=== PATIENT | male | born 1965 | race Caucasian/White ===

== ENCOUNTER 2024-07-18 20:07 | Inpatient (IN) | payer OTHER, MEDICAID ==
[~2024-07-18] VITALS: Ht 188 cm; Wt 64.8 kg
[2024-07-18] MEDS: SODIUM CHLORIDE 0.9% 1,000 ML IV ONE (20:30)
--- NOTE | 2024-07-18 20:34 | ED.PDOC ---
GI ASSESSMENT HPI Comments 59y M who presents to the ED via EMS for chief complaint of nausea and vomiting. Per EMS,pt is resident at [facility] who called after pt has been having nasuea, vomiting and generalized weakness over the past 2 days. Staff also told EMS that they facility does not have the resources to take care of pt due to pt having colon cancer and would like pt to be taken to ED to help find placement at another facility. Pt in the ED, is able to keep basic conversation but is nodding otherwise when asked basic questions but states he is in pain from his cancer. Pt otherwise denies any other symptoms at this time. 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 Allergies: Coded Allergies: NO KNOWN ALLERGIES (Unverified , 07/18/24) Information Source: Emergency Med Personnel Mode of Arrival: EMS Brought in by: EMS Past Medical History Past Medical History (Other): colon cancer Surgical History: Unknown Family History Family History: Unknown Social History Smoker: Non-Smoker Alcohol: Denies ETOH Use Drugs: Denies Drug Use Lives In: Care Home Constitutional: reports: weakness; denies: chills, diaphoresis, fatigue, fever, malaise, sweats, others EENTM: denies: blurred vision, double vision, ear bleeding, ear discharge, ear drainage, ear pain, ear ringing, eye pain, eye redness, hearing loss, mouth pain, mouth swelling, nasal discharge, nose bleeding, nose congestion, nose p ain, photophobia, tearing, throat pain, throat swelling, voice changes, others Respiratory: denies: cough, hemoptysis, orthopnea, SOB at rest, shortness of breath, SOB with excertion, stridor, wheezing, others Cardiovascular: denies: chest pain, dizzy spells, diaphoresis, Dyspnea on exertion, edema, irregular heart beat, left arm pain, lightheadedness, palpitations, PND, syncope, others Gastrointestinal: reports: abdominal pain, nausea, vomiting; denies: abdomen distended, blood streaked bowels, constipated, diarrhea, dysphagia, difficulty swallowing, hematemesis, melena, poor appetite, poor fluid intake, rectal bleeding, rectal pain, others Genitourinary: denies: burning, dysuria, flank pain, frequency, hematuria, incontinence, penile discharge, penile sore, pain, testicle pain, testicle swelling, urgency, others Neurological: denies: dizziness, fainting, headache, left sided numbness, left sided weakness, numbness, paresthesia, pre-existing deficit, right sided n umbness, right sided weakness, seizure, speech problems, tingling, tremors, weakness, others Musculoskeletal: denies: back pain, gout, joint pain, joint swelling, muscle pain, muscle stiffness, neck pain, others Integumetry: denies: bruises, change in color, change in hair/nails, dryness, laceration, lesions, lumps, rash, wounds, others Allergic/Immunocompromised: denies: Difficulty Healing, Frequent Infections, Hives, Itching, others Hematologic/Lymphatic: denies: anemia, blood clots, easy bleeding, easy bruising, swollen glands, others Endocrine: denies: excessive hunger, excessive sweating, excessive thirst, excessive urination, flushing, intolerance to cold, intolerance to heat, unexplained weight gain, unexplained weight loss, others Psychiatric: denies: anxiety, bipolar disorder, depression, hopeless, panic disorder, schizophrenia, sleepless, suicidal, others All Other Systems: Reviewed and Negative Physical Exam General Appearance: Mild Distress, Other (chronically ill appearing) HEENT: Normal ENT Inspection, Pharynx Normal, TMs Normal Neck: Full Range of Motion, Non-Tender, Normal, Normal Inspection Respiratory: Chest Non-Tender, Lungs Clear, No Accessory Muscle Use, No Respiratory Distress, Normal Breath Sounds Cardiovascular: Tachycardia Breast Exam: Deferred Gastrointestinal: No Organomegaly, Non Tender, No Pulsatile Mass, Normal Bowel Sounds, Soft Genitalia: Deferred Pelvic: Deferred Rectal: Deferred Extremities: No calf tenderness, Normal capillary refill, Normal inspection, Normal range of motion, Non-tender, No pedal edema Neurologic: Other (intellectually disabled) Cerebellar Function: NOT DONE Reflexes: NOT DONE Skin: Dry, Normal Color, Warm Lymphatic: No Adenopathy Was a procedure done? Was a procedure done?: No GI differential Dx Differential Diagnosis: Cholecystitis, Constipation, Gastritis/PUD, Gastroenteritis, Dehydration Other Differential Diagnosis failure to thrive X-Ray, Labs, Meds, VS Vital Signs Date Time Temp Pulse Resp B/P (MAP) Pulse Ox O2 Delivery O2 Flow Rate FiO2 07/18/24 22:27 70 12 122/82 07/18/24 21:45 95 14 124/82 07/18/24 21:05 98.2 71 16 124/43 (70) 98 98.2 07/18/24 20:14 97.7 73 16 13 (51) 96 Lab Test 07/18/24 20:40 Range/Units White Blood Count 10.1 4.4-10.8 10^3/uL Red Blood Count 4.60 4.5-5.90 10^6/uL Hemoglobin 11.7 L 13.5-17.5 g/dL Hematocrit 37.1 L 41.0-53.0 % Mean Corpuscular Volume 80.7 80.0-100.0 fL Mean Corpuscular Hemoglobin 25.4 L 28.0-32.0 pg Mean Corpuscular Hemoglobin Concent 31.5 L 32.0-36.0 g/dL Red Cell Distribution Width 17.6 H 11.8-14.3 % Platelet Count 205 140-450 10^3/uL Mean Platelet Volume 6.7 L 6.9-10.8 fL Neutrophils (%) (Auto) 85.3 H 37.0-80.0 % Lymphocytes (%) (Auto) 4.3 L 10.0-50.0 % Monocytes (%) (Auto) 10.1 0.0-12.0 % Eosinophils (%) (Auto) 0.0 0.0-7.0 % Basophils (%) (Auto) 0.3 0.0-2.0 % Neutrophils # (Auto) 8.6 1.6-8.6 10 ^3/uL Lymphocytes # (Auto) 0.4 0.4-5.4 10 ^3/uL Monocytes # (Auto) 1.0 0-1.3 10 ^3/uL Eosinophils # (Auto) 0 0-0.8 10 ^3/uL Basophils # (Auto) 0 0-0.2 10 ^3/uL Nucleated Red Blood Cells 0.1 % Sodium Level 139 136-145 mmol/L Potassium Level 4.2 3.5-5.1 mmol/L Chloride Level 106 98-107 mmol/L Carbon Dioxide Level 25 20-31 mmol/L Anion Gap 8 5-15 Blood Urea Nitrogen 18 9-23 mg/dL Creatinine 0.87 0.700-1.30 mg/dL Glomerular Filtration Rate Calc 99 >90 mL/min BUN/Creatinine Ratio 20.7 H 10.0-20.0 Serum Glucose 102 74-106 mg/dL Calcium Level 9.6 8.7-10.4 mg/dL Total Bilirubin 0.7 0.2-1.0 mg/dL Aspartate Amino Transferase (AST) 52 H 13-40 U/L Alanine Aminotransferase (ALT) 33 7-40 U/L Alkaline Phosphatase 90 46-116 U/L Troponin I High Sensitivity 51 </=54 ng/L Total Protein 6.5 5.7-8.2 g/dL Albumin 4.3 3.2-4.8 g/dL Lipase 36 12-53 U/L Current Medications Medications (Trade) Dose Ordered Sig/Cynthia Route Start Time Stop Time Status Last Admin Sodium Chloride 1,000 ml @ 1,000 mls/hr Q1H ONCE IV 07/18/24 20:30 07/18/24 21:29 DC 07/18/24 20:30 Ondansetron HCl (Zofran) 4 mg ONCE ONCE IV 07/18/24 20:30 07/18/24 20:31 DC 07/18/24 21:45 Morphine Sulfate 4 mg ONCE ONCE IV 07/18/24 20:30 07/18/24 20:31 DC 07/18/24 21:45 [place] [id number] Ph: [phone] DIAGNOSTIC IMAGING Diagnostic Imaging Report : [id number] Signed PATIENT: ALLYSSA GEORGE ACCT: [id number] UNIT: [id number] : 1965 LOC: ER ROOM / BED: / AGE / SEX: 59 / M ADM STATUS: REG ER SERVICE 20 ORDERING PHYSICIAN: BILL ELLINGTON MD PROCEDURE(s): CXRP - CHEST PORTABLE REASON: weakness ORDER NUMBER(s): [id number], ACCESSION NUMBER(s): [id number] CHEST RADIOGRAPH Indication: weakness Technique: Single frontal view of the chest was obtained Comparison: None Findings/ IMPRESSION: Possible 1.1 cm nodule in the left upper lung zone. No active cardiopulmonary disease. ATED BY: RADHA HERNANDEZ DO DICTATED DATE/TIME: 07/18/242049 SIGNED BY: RADHA HERNANDEZ DO SIGNED DATE/TIME: 07/18/242049 CC: Time of 1ST Reevaluation: 21:00 Reevaluation 1ST: Unchanged Patient Education/Counseling: Diagnosis, Treatment Family Education/Counseling: No Family Present Departure 1 Departure Time of Disposition: 22:56 (Patient with nausea and vomiting the setting of chemotherapy for cancer treatments. patient's facility reports the unable to take care of him.) Impression: Primary Impression: Projectile vomiting with nausea Additional Impressions: Weakness Cancer Disposition: ADMITTED INPATIENT Admit to: Med Surg Condition: Serious Critical Care Note Critical Care Time?: No Stability Stability form required: No Heart Score Heart Score: Heart Score Response (Comments) Value History N/A 0 EKG N/A 0 Age N/A 0 Risk Factors N/A 0 Troponin N/A 0 Total 0 I personally scribed for BILL ELLINGTON MD ([email or web address]) on 07/18/24 at 20:34. Electronically submitted by Don Sommer ([facility] I personally scribed for BILL ELLINGTON MD ([email or web address]) on 07/18/24 at 21:04. Electronically submitted by Don Sommer ([facility]). BILL ELLINGTON MD Jul 18, 2024 20:34
[2024-07-18 20:49] LABS: Basophils # (auto) 0 10 ^3/uL (0-0.2); Basophils % (auto) 0.3 % (0.0-2.0); Eosinophils # (auto) 0 10 ^3/uL (0-0.8); Hematocrit 37.1 % (41.0-53.0); Hemoglobin 11.7 g/dL (13.5-17.5); Lymphocytes # (auto) 0.4 10 ^3/uL (0.4-5.4); Lymphocytes % (auto) 4.3 % (10.0-50.0); Mean Corpuscular Hemoglobin 25.4 pg (28.0-32.0); Mean Corpuscular Hgb Conc. 31.5 g/dL (32.0-36.0); Mean Corpuscular Volume 80.7 fL (80.0-100.0); Monocytes % (auto) 10.1 % (0.0-12.0); Neutrophils # (auto) 8.6 10 ^3/uL (1.6-8.6); Neutrophils % (auto) 85.3 % (37.0-80.0); Nucleated Red Blood Cells % 0.1 %; Platelet Count (auto) 205 10^3/uL (140-450); Red Cell Distribution Width 17.6 % (11.8-14.3); White Blood Cell 10.1 10^3/uL (4.4-10.8)
--- NOTE | 2024-07-18 20:53 | DVH ---
CHEST RADIOGRAPH Indication: weakness Technique: Single frontal view of the chest was obtained Comparison: None Findings/ IMPRESSION: Possible 1.1 cm nodule in the left upper lung zone. No active cardiopulmonary disease.
[2024-07-18 21:05] LABS: Alanine Aminotransferase 33 U/L (7-40); Albumin 4.3 g/dL (3.2-4.8); Alkaline Phosphatase 90 U/L (46-116); Anion Gap 8 (5-15); Aspartate Aminotransferase 52 U/L (13-40); BUN/Creatinine Ratio 20.7 (10.0-20.0); Blood Urea Nitrogen 18 mg/dL (9-23); Calcium 9.6 mg/dL (8.7-10.4); Carbon Dioxide 25 mmol/L (20-31); Chloride 106 mmol/L (98-107); Glucose 102 mg/dL (74-106); Lipase 36 U/L (12-53); Potassium 4.2 mmol/L (3.5-5.1); Sodium 139 mmol/L (136-145)
[2024-07-18 21:06] LABS: Bilirubin, Total 0.7 mg/dL (0.2-1.0); Total Protein 6.5 g/dL (5.7-8.2)
[2024-07-18 21:15] VITALS: RESP 16; O2SAT 96
[2024-07-18] MEDS: ONDANSETRON HCL 4 MG/2 ML VIAL IV ONE (21:45)
[2024-07-18] MEDS: MORPHINE SULFATE 4 MG/ML SYR/VIAL IV ONE (21:45)
[2024-07-19] MEDS ORDERED: ACETAMINOPHEN 325 MG TAB PO PRN (00:30)
[2024-07-19] MEDS ORDERED: DOCUSATE SOD 100 MG CAP PO PRN (00:30)
[2024-07-19] MEDS ORDERED: ONDANSETRON HCL 4 MG/2 ML VIAL IV PRN (00:30)
[2024-07-19] MEDS ORDERED: HYDROcodone-ACET 5/325MG TAB PO PRN (00:30)
[2024-07-19] MEDS: SODIUM CHLORIDE 0.9% 1,000 ML IV SCH (00:30)
--- NOTE | 2024-07-19 02:11 | DVHHP2 ---
History of Present Illness Reason for Visit: Projectile vomiting with nausea History of Present Illness The patient is a 59-year-old male with past medical history of colon cancer, depression, and hyperlipidemia who presented to [facility] ED with complaint of nausea and vomiting. Patient has been having nausea, vomiting and generalized weakness over the past 2 days, getting worse that prompted this visit. Patient is resident at [facility], staff told EMS that the facility does not have the resources to take care of patient due to current colon cancer and would like to be taken to ED to help find placement at another facility. Patient was seen and evaluated in the ED, laboratory data shows WBC 10.1, platelets 205, sodium 139, potassium 4.2, BUN 18, creatinine 0.87, glucose 102, troponin 51, lipase 36. Chest x-ray revealing possible 1.1 cm nodules in the left upper lung son, no active cardiopulmonary disease. Please see medication orders section in the computer. On my assessment, patient denied chest pain, no headache, no dizziness, no diaphoresis, shortness of breaths, no abdominal pain, nausea or vomiting at this moment, no fever, no chills. Patient was admitted for further evaluation and medical management. Past Medical History Colon cancer, Depression, HLD Past Surgical History Denies all surgeries Family History Reviewed, noncontributory to the management of this case. Past Social History The patient lives at home, denies smoking, alcohol or illicit drugs abuse. Review of Systems Constitutional: Yes: Weakness; No: Fever, Chills, Sweats, Malaise, Other Eyes: No: Pain, Vision change, Conjunctivae inflammation, Eyelid inflammation, Other, Redness ENT: No: Ear pain, Ear discharge, Nose pain, Nose discharge, Nose congestion, Mouth pain, Mouth swelling, Throat pain, Throat swelling, Other Respiratory: No: Cough, Dry, Shortness of breath, SOB with excertion, Wheezing, Hemoptysis, Pleuritic Pain, Sputum, Wheezing, Other Cardiovascular: No: Chest Pain, Palpitations, Orthopnea, Paroxysmal Noc. Dyspnea, Edema, Lt Headedness, Other Gastrointestinal: Nausea, Vomiting, Abdominal Pain; No: Diarrhea, Constipation, Melena, Hematochezia, Other Genitourinary: No Dysuria, No Frequency, No Incontinence, No Hematuria, No Retention, No Other Musculoskeletal: No: other, neck pain, shoulder pain, arm pain, back pain, hand pain, leg pain, foot pain Skin: No: Rash, Lesions, Jaundice, Bruising, Other Neurological: No: Weakness, Numbness, Incoordination, Change in speech, Confusion, Seizures, Other Allergies: Coded Allergies: NO KNOWN ALLERGIES (Unverified , 07/18/24) Medications Current Medications Medications Dose Ordered Sig/Cynthia Route Start Time Stop Time Status Last Admin Dose Admin Aspirin 81 mg DAILY PO 07/19/24 10:00 Atorvastatin Calcium 20 mg HS PO 07/19/24 22:00 Tamsulosin HCl 0.4 mg QPM PO 07/19/24 18:00 Sertraline HCl 50 mg DAILY PO 07/19/24 10:00 Sodium Chloride 1,000 ml @ 60 mls/hr [id number] IV 07/19/24 00:30 07/19/24 00:30 60 MLS/HR Acetaminophen/ Hydrocodone Bitart 1 tab Q4HP PRN PO 07/19/24 00:30 Ondansetron HCl 4 mg Q4HP PRN IV 07/19/24 00:30 Docusate Sodium 100 mg BIDPRN PRN PO 07/19/24 00:30 Acetaminophen 650 mg Q6HP PRN PO 07/19/24 00:30 Exam Vital Signs Vital Signs Date Time Temp Pulse Resp B/P (MAP) Pulse Ox O2 Delivery O2 Flow Rate FiO2 07/18/24 22:27 70 12 122/82 07/18/24 21:15 96 Room Air* 0 21 07/18/24 21:05 98.2 98.2 General Appearance: Alert, Oriented X3, Cooperative, No acute distress HEENT: Atraumatic, PERRLA, EOMI, Mucous membr. moist/pink Respiratory: Clear to auscultation, Normal air movement Cardiovascular: Regular rate, Normal S1, Normal S2, No murmurs Abdominal: Normal bowel sounds, Soft, No tenderness, No hepatospenomegaly, No masses Extremities: No clubbing, No cyanosis, No edema, Normal pulses, No tenderness/swelling Skin: No rashes, No breakdown, No significant lesion Neuro: Normal speech, Normal tone, Sensation intact, Cranial nerves 3-12 NL, Reflexes 2+, Other (Generalized weakness) Psych/Mental Status: Mental status NL, Mood NL Labs/Xrays Labs Test 07/18/24 20:40 Range/Units White Blood Count 10.1 4.4-10.8 10^3/uL Red Blood Count 4.60 4.5-5.90 10^6/uL Hemoglobin 11.7 L 13.5-17.5 g/dL Hematocrit 37.1 L 41.0-53.0 % Mean Corpuscular Volume 80.7 80.0-100.0 fL Mean Corpuscular Hemoglobin 25.4 L 28.0-32.0 pg Mean Corpuscular Hemoglobin Concent 31.5 L 32.0-36.0 g/dL Red Cell Distribution Width 17.6 H 11.8-14.3 % Platelet Count 205 140-450 10^3/uL Mean Platelet Volume 6.7 L 6.9-10.8 fL Neutrophils (%) (Auto) 85.3 H 37.0-80.0 % Lymphocytes (%) (Auto) 4.3 L 10.0-50.0 % Monocytes (%) (Auto) 10.1 0.0-12.0 % Eosinophils (%) (Auto) 0.0 0.0-7.0 % Basophils (%) (Auto) 0.3 0.0-2.0 % Neutrophils # (Auto) 8.6 1.6-8.6 10 ^3/uL Lymphocytes # (Auto) 0.4 0.4-5.4 10 ^3/uL Monocytes # (Auto) 1.0 0-1.3 10 ^3/uL Eosinophils # (Auto) 0 0-0.8 10 ^3/uL Basophils # (Auto) 0 0-0.2 10 ^3/uL Nucleated Red Blood Cells 0.1 % Sodium Level 139 136-145 mmol/L Potassium Level 4.2 3.5-5.1 mmol/L Chloride Level 106 98-107 mmol/L Carbon Dioxide Level 25 20-31 mmol/L Anion Gap 8 5-15 Blood Urea Nitrogen 18 9-23 mg/dL Creatinine 0.87 0.700-1.30 mg/dL Glomerular Filtration Rate Calc 99 >90 mL/min BUN/Creatinine Ratio 20.7 H 10.0-20.0 Serum Glucose 102 74-106 mg/dL Calcium Level 9.6 8.7-10.4 mg/dL Total Bilirubin 0.7 0.2-1.0 mg/dL Aspartate Amino Transferase (AST) 52 H 13-40 U/L Alanine Aminotransferase (ALT) 33 7-40 U/L Alkaline Phosphatase 90 46-116 U/L Troponin I High Sensitivity 51 </=54 ng/L Total Protein 6.5 5.7-8.2 g/dL Albumin 4.3 3.2-4.8 g/dL Lipase 36 12-53 U/L PATIENT: ALLYSSA GEORGE ACCT: [id number] UNIT: [id number] : 1965 LOC: ER ROOM / BED: / AGE / SEX: 59 / M ADM STATUS: REG ER SERVICE 20 ORDERING PHYSICIAN: BILL ELLINGTON MD PROCEDURE(s): CXRP - CHEST PORTABLE REASON: weakness ORDER NUMBER(s): [id number], ACCESSION NUMBER(s): [id number] CHEST RADIOGRAPH Indication: weakness Technique: Single frontal view of the chest was obtained Comparison: None Findings/ IMPRESSION: Possible 1.1 cm nodule in the left upper lung zone. No active cardiopulmonary disease. Assessment/Plan Assessment/Plan Projectile vomiting with nausea Colon cancer Generalized weakness Plan 1. Admit to med surge unit 2. Breathing treatment 3. Pain control management 4. Management of fluids and electrolytes 5. Consultation for hospitalist 6. Diagnostic tests chest x-ray 7. DVT prophylaxis-on SCDs 8. Repeat labs CBC, CMP in a.m. 9. Continue with current medical management 10. Treatment plan discussed with patient and RN. Patient verbalized understanding. Plan discussed with: Patient, Other (RN) My Orders Orders - LION KIM DNP Procedure Category Date Status Time Complete Blood Count LAB 07/19/24 Logged 04:00 Comprehensive LAB 07/19/24 Logged Metabolic Panel 04:00 Aspirin Tablet PHA 07/19/24 In Process 10:00 Atorvastatin (Lipitor) PHA 07/19/24 In Process 22:00 Tamsulosin PHA 07/19/24 In Process Hydrochloride (Flomax) 18:00 Sertraline Hcl PHA 07/19/24 In Process (Zoloft) 10:00 Allergies YULI 07/19/24 In Process 00:23 Code Status CODE 07/19/24 Transmitted 00:23 Sodium Chloride 0.9% PHA 07/19/24 In Process 00:30 Oxygen Per Hour RT 07/19/24 Transmitted 00:23 Hydrocodone-Acet PHA 07/19/24 In Process 5/325mg Tab (Ten Sleep 00:30 Ondansetron Hcl PHA 07/19/24 In Process (Zofran) 00:30 Docusate Sodium PHA 07/19/24 In Process Capsule (Colace 00:30 Fall Risk Precautions YULI 07/19/[address] 00:23 Complete Blood Count LAB 07/20/24 Verified 04:00 Comprehensive LAB 07/20/24 Verified Metabolic Panel 04:00 Cardiac DIET 07/19/24 Transmitted Diet-2gna,Lofat,Lochol Breakfast Condition: Serious YULI 07/19/24 In Process 00:23 Acetaminophen Tablet PHA 07/19/24 In Process (Tylenol Tablet) 00:30 Sequential YULI 07/19/24 In Process Compression Device Admit ADMIT 07/19/24 Verified 02:09 Nitroglycerin PHA 07/19/24 Verified Sublingual (Ntrostat 02:15 Morphine Sulfate PHA 07/19/24 Verified Injection 02:15 Notify Md Of Changes YULI 07/19/24 Verified From Base 02:09 Emergency Dysrhythmia YULI 07/19/24 Verified Protocol 02:09 Oxygen By Nasal RT 07/19/24 Verified Cannula 02:09 Problem List: (1) Projectile vomiting with nausea (2) Colon cancer (3) Generalized weakness Date of Service: Jul 19, 2024 Billing Provider: LION KIM DNP Common Visit Codes: [id number] INP/OBS CARE (HIGH) LION KIM DNP Jul 19, 2024 02:11
[2024-07-19] MEDS ORDERED: NITROGLYCERIN 0.4 MG SL TAB SL PRN (02:15)
[2024-07-19] MEDS ORDERED: MORPHINE SULFATE INJ 2 MG/ml SYRG IV PRN (02:15)
[2024-07-19 05:41] LABS: Basophils # (auto) 0 10 ^3/uL (0-0.2); Eosinophils # (auto) 0 10 ^3/uL (0-0.8); Eosinophils % (auto) 0.2 % (0.0-7.0); Hemoglobin 10.8 g/dL (13.5-17.5); Lymphocytes # (auto) 0.5 10 ^3/uL (0.4-5.4); Mean Corpuscular Hemoglobin 25.6 pg (28.0-32.0); Red Blood Cells 4.21 10^6/uL (4.5-5.90)
[2024-07-19 05:45] LABS: Basophils % (auto) 0.3 % (0.0-2.0); Hematocrit 34.1 % (41.0-53.0); Lymphocytes % (auto) 5.2 % (10.0-50.0); Mean Corpuscular Hgb Conc. 31.5 g/dL (32.0-36.0); Mean Corpuscular Volume 81.1 fL (80.0-100.0); Monocytes % (auto) 10.5 % (0.0-12.0); Neutrophils # (auto) 7.8 10 ^3/uL (1.6-8.6); Neutrophils % (auto) 83.8 % (37.0-80.0); Nucleated Red Blood Cells % 0.1 %; Platelet Count (auto) 188 10^3/uL (140-450); White Blood Cell 9.3 10^3/uL (4.4-10.8)
[2024-07-19 06:01] LABS: Alanine Aminotransferase 27 U/L (7-40); Albumin 3.7 g/dL (3.2-4.8); Alkaline Phosphatase 85 U/L (46-116); Anion Gap 9 (5-15); Aspartate Aminotransferase 46 U/L (13-40); BUN/Creatinine Ratio 16.9 (10.0-20.0); Bilirubin, Total 0.6 mg/dL (0.2-1.0); Blood Urea Nitrogen 15 mg/dL (9-23); Calcium 9.4 mg/dL (8.7-10.4); Carbon Dioxide 23 mmol/L (20-31); Chloride 107 mmol/L (98-107); Glucose 108 mg/dL (74-106); Potassium 3.8 mmol/L (3.5-5.1); Sodium 139 mmol/L (136-145)
[2024-07-19 07:40] VITALS: PULSE 78; RESP 25; O2SAT 95
[2024-07-19 08:13] LABS: Urine Bacteria FEW /hpf (None Seen); Urine Blood Negative /uL (Negative); Urine Clarity Turbid (Clear); Urine Color Yellow (Yellow); Urine Protein, UAD Negative (Negative); Urine Specific Gravity 1.021 (1.001-1.035); Urine Urobilinogen Normal (Negative); Urine WBC 53 /hpf (0 - 3); Urine pH 5.5 (5.0-9.0)
[2024-07-19] MEDS: ASPirin 81 mg TAB PO SCH (10:55)
[2024-07-19] MEDS: SERTRALINE HCL 50 MG TAB PO SCH (10:56)
--- NOTE | 2024-07-19 13:33 | DVHPN2 ---
Reviewed: Care Plan, H&P, Labs, Medications, Previous Orders, Radiology Changes from previous H/P or p: No Changes Eyes: No Pain, No Vision change, No Conjunctivae inflammation, No Eyelid inflammation, No Other, No Redness ENT: No Ear pain, No Ear discharge, No Nose pain, No Nose discharge, No Nose congestion, No Mouth pain, No Mouth swelling, No Throat pain, No Throat swelling, No Other Cardiovascular: No Chest Pain, No Palpitations, No Orthopnea, No Paroxysmal Noc. Dyspnea, No Edema, No Lt Headedness, No Other Respiratory: No Cough, No Dry, No Shortness of breath, No SOB with excertion, No Wheezing, No Hemoptysis, No Pleuritic Pain, No Sputum, No Other Gastrointestinal: Nausea, Vomiting, Abdominal Pain; No Diarrhea, No Constipation, No Melena, No Hematochezia, No Other Genitourinary: No Dysuria, No Frequency, No Incontinence, No Hematuria, No Retention, No Other Musculoskeletal: No other, No neck pain, No shoulder pain, No arm pain, No back pain, No hand pain, No leg pain, No foot pain Skin: No Rash, No Lesions, No Jaundice, No Bruising, No Other Objective Vitals Vital Signs Date Time Temp Pulse Resp B/P (MAP) Pulse Ox O2 Delivery O2 Flow Rate FiO2 07/19/24 12:48 75 07/19/24 11:00 13 106/60 (75) 98 07/19/24 07:40 Room Air* 0 21 07/19/24 07:40 99.4 99.4 Intake/Output Intake and Output 07/19/24 07:00 Intake Total 360 ml Balance 360 ml Intake IV Total 360 ml Medications Current Medications Medications Dose Ordered Sig/Cynthia Route Start Time Stop Time Status Last Admin Dose Admin Aspirin 81 mg DAILY PO 07/19/24 10:00 07/19/24 10:55 81 MG Atorvastatin Calcium 20 mg HS PO 07/19/24 22:00 Tamsulosin HCl 0.4 mg QPM PO 07/19/24 18:00 Sertraline HCl 50 mg DAILY PO 07/19/24 10:00 07/19/24 10:56 50 MG Sodium Chloride 1,000 ml @ 60 mls/hr [id number] IV 07/19/24 00:30 07/19/24 00:30 60 MLS/HR Acetaminophen/ Hydrocodone Bitart 1 tab Q4HP PRN PO 07/19/24 00:30 Ondansetron HCl 4 mg Q4HP PRN IV 07/19/24 00:30 Docusate Sodium 100 mg BIDPRN PRN PO 07/19/24 00:30 Acetaminophen 650 mg Q6HP PRN PO 07/19/24 00:30 Nitroglycerin 0.4 mg Q5MINP PRN SL 07/19/24 02:15 Morphine Sulfate 2 mg Q30M PRN IV 07/19/24 02:15 Laboratory Results Laboratory Tests 07/19/24 05:25 Chemistry Test 07/18/24 20:40 07/19/24 05:25 Albumin 4.3 g/dL (3.2-4.8) 3.7 g/dL (3.2-4.8) Calcium Level 9.6 mg/dL (8.7-10.4) 9.4 mg/dL (8.7-10.4) Total Protein 6.5 g/dL (5.7-8.2) 6.0 g/dL (5.7-8.2) Lipid panel Test 07/18/24 20:40 Lipase 36 U/L (12-53) LFT Test 07/18/24 20:40 07/19/24 05:25 Alanine Aminotransferase (ALT) 33 U/L (7-40) 27 U/L (7-40) Alkaline Phosphatase 90 U/L (46-116) 85 U/L (46-116) Aspartate Amino Transferase (AST) 52 U/L (13-40) H 46 U/L (13-40) H Total Bilirubin 0.7 mg/dL (0.2-1.0) 0.6 mg/dL (0.2-1.0) Urinalysis Test 07/19/24 07:40 Urine Color Yellow (Yellow) Urine Clarity Turbid (Clear) H Urine pH 5.5 (5.0-9.0) Urine Specific [place] 1.021 (1.001-1.035) Urine Protein Negative (Negative) Urine Ketones Negative (Negative) Urine Blood Negative /uL (Negative) Urine Nitrite 2+ (Negative) H Urine Bilirubin Negative (Negative) Urine Urobilinogen Normal mg/dL (Negative) Urine Leukocyte Esterase 2+ /uL (Negative) Urine RBC 1 /hpf (0 - 3) Urine WBC 53 /hpf (0 - 3) Urine Squamous Epithelial Cells None seen /hpf (<5) Urine Bacteria Few /hpf (None Seen) H Urine Glucose Normal mg/dL (Normal) Labs and/or images reviewed: Labs reviewed by me, Image(s) reviewed by me Assessment/Plan Assessment/Plan Intractable Nausea and vomiting: Zofran Dehydration: LR 125 per hour Acute abdominal pain: CT abdomen pelvis without contrast GI consult for Dr. Zayas History of colon cancer Depression Zoloft Hypercholesterolemia: Lipitor BPH: Flomax Cachexia Severe malnutrition Time spent 65 minutes Condition guarded Patient is full code Advanced care planning time 20 minutes Patient came from [facility] Plan discussed with: Patient My Orders Orders - ROSEMARY AGUERO MD Procedure Category Date Status Time Ct Ab Pel Wo Con-No CT 07/19/24 Logged Oral Or Iv 13:27 Blood Culture CRAIG 07/19/24 Logged 13:28 Urine Bacterial CRAIG 07/19/24 Logged Culture 13:28 * Gi Dvh Ticket Scheduler CONS 07/19/24 Transmitted 13:28 Ceftriaxone Ivpb PHA 07/20/24 Verified Rocephin 09:00 Ceftriaxone Ivpb PHA 07/19/24 Verified Rocephin 13:30 Metronidazole Ivpb PHA 07/19/24 Verified Flagyl 14:00 Date of Service: Jul 19, 2024 Billing Provider: ROSEMARY AGUERO MD Common Visit Codes: [id number] CARE 30-74 MIN ROSEMARY AGUERO MD Jul 19, 2024 13:33
[2024-07-19] MEDS: cefTRIAXone 1GM/50ML D5W 50 ML IV ONE ×2 (15:21→15:23)
[2024-07-19] MEDS: metroNIDAZOLE 500MG/100ML 100 ML IV SCH (16:15)
--- NOTE | 2024-07-19 17:11 | DVHINCON2 ---
Date of service: Jul 19, [address] Lamar Reason for Consultation Abdominal pain nausea vomiting History of Present Illness This 59-year-old admitted to the is admitted through the emergency room with complaints of abdominal pain nausea vomiting patient has got some mild lower abdominal pain and some nausea and had couple vomiting and hence came to the brought to the emergency room from a fdc Patient i patient has history of colon cancer diagnosed last month and is on chemotherapy now Patient is also developmentally disabled and hence much difficult to get detailed history History Obtained from his patient care specialist Patient apparently has colon cancer with liver Mets and had two sets of chemotherapy the last one being last he had nausea and vomiting the next day and she was able to even not keep the nausea medication done and hence brought to the emergency room and from there admitted Hematemesis melena hematochezia etc. Past Medical History Possible hypertension Colon cancer with liver Mets Past Surgical History Unremarkable Family History Mother had colon cancer Social History Denies smoking or drinking Allergies: Coded Allergies: NO KNOWN ALLERGIES (Unverified , 07/18/24) Current Medications Current Medications Medications (Trade) Dose Ordered Sig/Cynthia Route PRN Reason Start Time Stop Time Status Last Admin Aspirin 81 mg DAILY PO 07/19/24 10:00 07/19/24 10:55 Atorvastatin Calcium (Lipitor) 20 mg HS PO 07/19/24 22:00 Tamsulosin HCl (Flomax) 0.4 mg QPM PO 07/19/24 18:00 Sertraline HCl (Zoloft) 50 mg DAILY PO 07/19/24 10:00 07/19/24 10:56 Sodium Chloride 1,000 ml @ 60 mls/hr [id number] IV 07/19/24 00:30 07/19/24 00:30 Acetaminophen/ Hydrocodone Bitart ([place] 5/325MG Tab) 1 tab Q4HP PRN PO MODERATE PAIN (4-6 PAIN SCALE) 07/19/24 00:30 Ondansetron HCl (Zofran) 4 mg Q4HP PRN IV NAUSEA / VOMITING 07/19/24 00:30 Docusate Sodium (Colace Capsule) 100 mg BIDPRN PRN PO FOR CONSTIPATION 07/19/24 00:30 Acetaminophen (Tylenol Tablet) 650 mg Q6HP PRN PO PAIN SCALE 1-3 OR TEMP>100.4 07/19/24 00:30 Nitroglycerin (Ntrostat Sublingual) 0.4 mg Q5MINP PRN SL FOR CHEST PAIN 07/19/24 02:15 Morphine Sulfate 2 mg Q30M PRN IV FOR CHEST PAIN 07/19/24 02:15 Ceftriaxone Sodium 50 ml @ 100 mls/hr DAILY@09 IV 07/20/24 09:00 Metronidazole 100 ml @ 100 mls/hr Q8HR IV 07/19/24 14:00 07/19/24 16:15 Promethazine HCl (Phenergan Plain Syrup) 25 mg Q6HR PO 07/19/24 18:00 Pantoprazole Sodium (Protonix) 40 mg DAILY IV 07/20/24 10:00 Review of Systems Unable to get my detailed history unremarkable otherwise Vital Signs Vital Signs Date Time Temp Pulse Resp B/P (MAP) Pulse Ox O2 Delivery O2 Flow Rate FiO2 07/19/24 13:00 72 17 100/61 (74) 95 07/19/24 07:40 Room Air* 0 21 07/19/24 07:40 99.4 99.4 Physical Exam Poorly built built and nourished male in no acute distress chronically ill- looking Vitals stable HEENT examination no pallor no icterus Lungs clear Cardiovascular unremarkable Abdomen soft no distention no rigidity no guarding no mass very minimal tenderness in left lower quadrant Bowel sounds normal Extremities wasted but no edema Labs/Diagnostic Data Labs Test 07/19/24 07:40 07/19/24 05:25 07/18/24 20:40 Range/Units Urine Color Yellow Yellow Urine Clarity Turbid H Clear Urine pH 5.5 5.0-9.0 Urine Specific [place] 1.021 1.001-1.035 Urine Protein Negative Negative Urine Ketones Negative Negative Urine Blood Negative Negative /uL Urine Nitrite 2+ H Negative Urine Bilirubin Negative Negative Urine Urobilinogen Normal Negative mg/dL Urine Leukocyte Esterase 2+ Negative /uL Urine RBC 1 0 - 3 /hpf Urine WBC 53 0 - 3 /hpf Urine Squamous Epithelial Cells None seen <5 /hpf Urine Bacteria Few H None Seen /hpf Urine Glucose Normal Normal mg/dL White Blood Count 9.3 4.4-10.8 10^3/uL Red Blood Count 4.21 L 4.5-5.90 10^6/uL Hemoglobin 10.8 L 13.5-17.5 g/dL Hematocrit 34.1 L 41.0-53.0 % Mean Corpuscular Volume 81.1 80.0-100.0 fL Mean Corpuscular Hemoglobin 25.6 L 28.0-32.0 pg Mean Corpuscular Hemoglobin Concent 31.5 L 32.0-36.0 g/dL Red Cell Distribution Width 17.0 H 11.8-14.3 % Platelet Count 188 140-450 10^3/uL Mean Platelet Volume 7.0 6.9-10.8 fL Neutrophils (%) (Auto) 83.8 H 37.0-80.0 % Lymphocytes (%) (Auto) 5.2 L 10.0-50.0 % Monocytes (%) (Auto) 10.5 0.0-12.0 % Eosinophils (%) (Auto) 0.2 0.0-7.0 % Basophils (%) (Auto) 0.3 0.0-2.0 % Neutrophils # (Auto) 7.8 1.6-8.6 10 ^3/uL Lymphocytes # (Auto) 0.5 0.4-5.4 10 ^3/uL Monocytes # (Auto) 1.0 0-1.3 10 ^3/uL Eosinophils # (Auto) 0 0-0.8 10 ^3/uL Basophils # (Auto) 0 0-0.2 10 ^3/uL Nucleated Red Blood Cells 0.1 % Sodium Level 139 136-145 mmol/L Potassium Level 3.8 3.5-5.1 mmol/L Chloride Level 107 98-107 mmol/L Carbon Dioxide Level 23 20-31 mmol/L Anion Gap 9 5-15 Blood Urea Nitrogen 15 9-23 mg/dL Creatinine 0.89 0.700-1.30 mg/dL Glomerular Filtration Rate Calc 98 >90 mL/min BUN/Creatinine Ratio 16.9 10.0-20.0 Serum Glucose 108 H 74-106 mg/dL Calcium Level 9.4 8.7-10.4 mg/dL Total Bilirubin 0.6 0.2-1.0 mg/dL Aspartate Amino Transferase (AST) 46 H 13-40 U/L Alanine Aminotransferase (ALT) 27 7-40 U/L Alkaline Phosphatase 85 46-116 U/L Total Protein 6.0 5.7-8.2 g/dL Albumin 3.7 3.2-4.8 g/dL Troponin I High Sensitivity 51 </=54 ng/L Lipase 36 12-53 U/L Assessment 59-year-old male with history of colon cancer with liver Mets stage IV with hyperlipidemia on chemotherapy with Oncology group from [facility] in [facility] Had the 2nd chemo on and developed nausea vomiting and hence came to the hospital and admitted Physical examination is unremarkable no abdominal distention no tenderness no rigidity or guarding No masses felt No gross bowel obstruction Clinical impression And pain nausea vomiting status post chemotherapy for colon cancer with stage IV with liver Mets Nausea vomiting possibly secondary to chemo Labs are unremarkable hemoglobin 10. Plan/Recommendation We will recommend symptomatic treatment with Zofran Protonix clear liquids and slowly advance Symptomatic treatment for the time being symptoms We will get a CT scan of the abdomen and pelvis If symptoms worsen may need further evaluation including further x-rays or endoscopy etc. if necessary For the time being conservative treatment and follow-up with the oncologist Thank you Dr. Marquez Howard discussed with: Other EMILE OHCOA MD Jul 19, 2024 17:11
[2024-07-19] MEDS: GASTROGRAFIN 30 ML SOL ONE (18:30)
[2024-07-19] MEDS: TAMSULOSIN HYDROCHLORIDE 0.4 MG CAP PO SCH (18:31)
[2024-07-19] MEDS: PROMETHAZINE HCL 6.25 MG/5 ML ORAL SYRUP PO SCH (18:32)
[2024-07-19] MEDS: IOHEXOL 300 MG/ML 100ML BOTTLE IJ ONE (21:25)
--- NOTE | 2024-07-19 21:34 | DVH ---
Exam: CT CT ABD PELVIS W CON-ORAL IV History: colon cancer nausea vomiting Comparison Study: PET-CT dated April 17, 2024 Technique: Multidetector spiral CT of the abdomen was performed from lung bases to pubic symphysis. Imaging was performed without IV contrast. Axial, coronal and sagittal multiplanar reformats were ob tained from the axial data set by the technologist. Radiation Dose : 1. Abdomen/Pelvis: CTDIvol 6.9 mGy, DLP 389.26 mGy*cm. Findings: Evaluation of solid organs is limited due to lack of intravenous contrast use. Lung Bases: No acute or significant lung base finding. Normal heart size. No pleural or pericardial effusion. Liver: Multiple hypodense liver masses, largest measuring up to 6.3 cm in the right hepatic lobe. Gallbladder and Biliary Tree: Unremarkable Spleen: Unremarkable Pancreas: The pancreas is grossly normal in appearance. Adrenal Glands: Unremarkable Kidneys: Kidneys are grossly normal without calculi or hydronephrosis. Bladder: Grossly unremarkable for degree of distention. Bowel: The stomach is grossly normal in appearance. Concentric wall thickening throughout the colon w ith adjacent fat stranding, compatible with infectious or inflammatory colitis. Irregular nodular wal l thickening throughout the sigmoid colon may reflect underlying mass. The appendix is not visualize d; however, no secondary findings of acute appendicitis identified. Ascites: Absent Lymphadenopathy: Multiple abnormally enlarged retroperitoneal lymph nodes, for example a left periaor tic lymph node measuring up to 1.9 cm. Abdominal Wall and Mesentery: Unremarkable. Vasculature: The visualized abdominal aorta is normal in size and caliber. Evaluation of abdominal a nd pelvic vessels is limited due to lack of intravenous contrast. Pelvic Organs: Unremarkable Musculoskeletal: No aggressive focal bony lesions, acute fractures or dislocation. IMPRESSION: 1. Infectious / inflammatory colitis. 2. Irregular nodular wall thickening throughout the sigmoid colon may reflect underlying mass. 3. Retroperitoneal lymphadenopathy, likely metastatic. 4. Multiple hypodense masses throughout the liver , largest measuring up to 6.3 cm in the right hepat ic lobe. These masses are compatible with metastatic disease Radiation optimization: All CT scans at this facility use at least one of these dose optimization alex hniques: automated exposure control mA and/or kV adjustment per patient size (includes targeted exam s where dose is matched to clinical indication) or iterative reconstruction.
[2024-07-19] MEDS: ATORVASTATIN 20 MG TAB PO SCH (22:10)
[2024-07-19 23:50] VITALS: PULSE 73; RESP 17; O2SAT 96
[2024-07-20] VITALS (9 sets, daily range): BP systolic 100–120; BP diastolic 61–72; PULSE 68–73; RESP 16–19; TEMP 96.2–98; O2SAT 90–100
[2024-07-20] MEDS ORDERED: ASPI-628 PO (00:41)
[2024-07-20] MEDS ORDERED: ONDA-188 PO (00:41)
[2024-07-20] MEDS ORDERED: ATOR40TA52 PO (00:41)
[2024-07-20] MEDS ORDERED: FERR325T20 PO (00:41)
[2024-07-20] MEDS ORDERED: MELA10CA PO (00:41)
[2024-07-20] MEDS ORDERED: LORA-483 PO (00:41)
[2024-07-20] MEDS ORDERED: CHOL50007 PO (00:41)
[2024-07-20] MEDS ORDERED: MULT-443 PO (00:41)
[2024-07-20] MEDS ORDERED: SERT-289 PO (00:41)
[2024-07-20] MEDS ORDERED: TAMS0.4C39 PO (00:41)
[2024-07-20 06:22] LABS: Basophils # (auto) 0 10 ^3/uL (0-0.2); Lymphocytes # (auto) 0.7 10 ^3/uL (0.4-5.4); Monocytes # (auto) 0.9 10 ^3/uL (0-1.3); Nucleated Red Blood Cells % 0.1 %
[2024-07-20 06:24] LABS: Basophils % (auto) 0.4 % (0.0-2.0); Eosinophils # (auto) 0.2 10 ^3/uL (0-0.8); Hematocrit 35.2 % (41.0-53.0); Hemoglobin 11.1 g/dL (13.5-17.5); Lymphocytes % (auto) 8.2 % (10.0-50.0); Mean Corpuscular Hemoglobin 25.4 pg (28.0-32.0); Mean Corpuscular Hgb Conc. 31.6 g/dL (32.0-36.0); Mean Corpuscular Volume 80.5 fL (80.0-100.0); Monocytes % (auto) 11.2 % (0.0-12.0); Neutrophils # (auto) 6.1 10 ^3/uL (1.6-8.6); Neutrophils % (auto) 77.2 % (37.0-80.0); Platelet Count (auto) 170 10^3/uL (140-450); Red Blood Cells 4.37 10^6/uL (4.5-5.90); Red Cell Distribution Width 17.1 % (11.8-14.3); White Blood Cell 7.9 10^3/uL (4.4-10.8)
[2024-07-20 07:05] LABS: Alanine Aminotransferase 29 U/L (7-40); Albumin 3.8 g/dL (3.2-4.8); Alkaline Phosphatase 84 U/L (46-116); Anion Gap 7 (5-15); Aspartate Aminotransferase 45 U/L (13-40); BUN/Creatinine Ratio 15.4 (10.0-20.0); Blood Urea Nitrogen 12 mg/dL (9-23); Calcium 9.2 mg/dL (8.7-10.4); Carbon Dioxide 24 mmol/L (20-31); Chloride 109 mmol/L (98-107); Glucose 89 mg/dL (74-106); Potassium 3.6 mmol/L (3.5-5.1); Sodium 140 mmol/L (136-145)
[2024-07-20 07:06] LABS: Bilirubin, Total 0.5 mg/dL (0.2-1.0); Total Protein 5.9 g/dL (5.7-8.2)
--- NOTE | 2024-07-20 09:34 | DVHPN2 ---
Reviewed: Care Plan, H&P, Labs, Medications, Previous Orders, Radiology Changes from previous H/P or p: No Changes Eyes: No Pain, No Vision change, No Conjunctivae inflammation, No Eyelid inflammation, No Other, No Redness ENT: No Ear pain, No Ear discharge, No Nose pain, No Nose discharge, No Nose congestion, No Mouth pain, No Mouth swelling, No Throat pain, No Throat swelling, No Other Cardiovascular: No Chest Pain, No Palpitations, No Orthopnea, No Paroxysmal Noc. Dyspnea, No Edema, No Lt Headedness, No Other Respiratory: No Cough, No Dry, No Shortness of breath, No SOB with excertion, No Wheezing, No Hemoptysis, No Pleuritic Pain, No Sputum, No Other Gastrointestinal: Nausea, Vomiting, Abdominal Pain; No Diarrhea, No Constipation, No Melena, No Hematochezia, No Other Genitourinary: No Dysuria, No Frequency, No Incontinence, No Hematuria, No Retention, No Other Musculoskeletal: No other, No neck pain, No shoulder pain, No arm pain, No back pain, No hand pain, No leg pain, No foot pain Skin: No Rash, No Lesions, No Jaundice, No Bruising, No Other Objective Vitals Vital Signs Date Time Temp Pulse Resp B/P (MAP) Pulse Ox O2 Delivery O2 Flow Rate FiO2 07/20/24 08:31 97.8 68 16 111/65 (80) 99 97.8 07/19/24 23:50 Nasal Cannula* 2 28 Intake/Output Intake and Output 07/20/24 07:00 Intake Total 1190 ml Output Total 0 ml Balance 1190 ml Intake Oral 0 ml IV Total 1190 ml Output Urine Total 0 ml Medications Current Medications Medications Dose Ordered Sig/Cynthia Route Start Time Stop Time Status Last Admin Dose Admin Aspirin 81 mg DAILY PO 07/19/24 10:00 07/19/24 10:55 81 MG Atorvastatin Calcium 20 mg HS PO 07/19/24 22:00 07/19/24 22:10 20 MG Tamsulosin HCl 0.4 mg QPM PO 07/19/24 18:00 07/19/24 18:31 0.4 MG Sertraline HCl 50 mg DAILY PO 07/19/24 10:00 07/19/24 10:56 50 MG Sodium Chloride 1,000 ml @ 60 mls/hr [id number] IV 07/19/24 00:30 07/19/24 18:00 60 MLS/HR Acetaminophen/ Hydrocodone Bitart 1 tab Q4HP PRN PO 07/19/24 00:30 Ondansetron HCl 4 mg Q4HP PRN IV 07/19/24 00:30 Docusate Sodium 100 mg BIDPRN PRN PO 07/19/24 00:30 Acetaminophen 650 mg Q6HP PRN PO 07/19/24 00:30 Nitroglycerin 0.4 mg Q5MINP PRN SL 07/19/24 02:15 Morphine Sulfate 2 mg Q30M PRN IV 07/19/24 02:15 Ceftriaxone Sodium 50 ml @ 100 mls/hr DAILY@09 IV 07/20/24 09:00 Metronidazole 100 ml @ 100 mls/hr Q8HR IV 07/19/24 14:00 07/20/24 06:29 100 MLS/HR Promethazine HCl 25 mg Q6HR PO 07/19/24 18:00 07/20/24 06:29 25 MG Pantoprazole Sodium 40 mg DAILY IV 07/20/24 10:00 Laboratory Results Laboratory Tests 07/20/24 05:27 Chemistry Test 07/20/24 05:27 Albumin 3.8 g/dL (3.2-4.8) Calcium Level 9.2 mg/dL (8.7-10.4) Total Protein 5.9 g/dL (5.7-8.2) LFT Test 07/20/24 05:27 Alanine Aminotransferase (ALT) 29 U/L (7-40) Alkaline Phosphatase 84 U/L (46-116) Aspartate Amino Transferase (AST) 45 U/L (13-40) H Total Bilirubin 0.5 mg/dL (0.2-1.0) Urinalysis Test 07/19/24 07:40 Urine Color Yellow (Yellow) Urine Clarity Turbid (Clear) H Urine pH 5.5 (5.0-9.0) Urine Specific [place] 1.021 (1.001-1.035) Urine Protein Negative (Negative) Urine Ketones Negative (Negative) Urine Blood Negative /uL (Negative) Urine Nitrite 2+ (Negative) H Urine Bilirubin Negative (Negative) Urine Urobilinogen Normal mg/dL (Negative) Urine Leukocyte Esterase 2+ /uL (Negative) Urine RBC 1 /hpf (0 - 3) Urine WBC 53 /hpf (0 - 3) Urine Squamous Epithelial Cells None seen /hpf (<5) Urine Bacteria Few /hpf (None Seen) H Urine Glucose Normal mg/dL (Normal) Labs and/or images reviewed: Labs reviewed by me, Image(s) reviewed by me Assessment/Plan Assessment/Plan Intractable Nausea and vomiting: Zofran Dehydration: LR 125 per hour Acute abdominal pain: CT abdomen pelvis without contrast shows sigmoid mass with Mets to the liver and colitis GI consult for Dr. Zayas History of colon cancer Depression Zoloft Hypercholesterolemia: Lipitor BPH: Flomax Cachexia Severe malnutrition Time spent 65 minutes Condition guarded Patient is full code Advanced care planning time 20 minutes Patient came from [facility]: medical care administrator Satnam [phone] at bedside and she advised the patient was diagnosed with colon cancer about a year ago and on chemotherapy with Dr. S[facility] of [facility] since one month Discussed with her about possibility of senior living facility placement for IV antibiotics Plan discussed with: Patient My Orders Orders - ROSEMARY AGUERO MD Procedure Category Date Status Time Blood Culture CRAIG 07/19/24 In Process 13:28 Urine Bacterial CRAIG 07/19/24 In Process Culture 13:28 * Gi Dvh Head Stock Operator CONS 07/19/24 Transmitted 13:28 Ceftriaxone 1gm/50ml PHA 07/20/24 In Process D5w (Rocephin) 09:00 Metronidazole PHA 07/19/24 In Process 500mg/100ml (Flagyl 14:00 Promethazine Plain PHA 07/19/24 In Process Syrup (Phenergan Plai 18:00 Date of Service: Jul 20, 2024 Billing Provider: ROSEMARY AGUERO MD Common Visit Codes: [id number] INP/OBS CARE(HIGH) Secondary Visit Codes: [id number] CARE PLAN 30 MINUTES ROSEMARY AGUERO MD Jul 20, 2024 09:34
[2024-07-20] MEDS: PANTOPRAZOLE 40 MG/10 ML VIAL INJ IV SCH (10:21)
[2024-07-20] MEDS: cefTRIAXone 1GM/50ML D5W 50 ML IV SCH (10:21)
[2024-07-21] VITALS (7 sets, daily range): BP systolic 111–135; BP diastolic 65–75; PULSE 67–88; RESP 14–20; TEMP 97.4–98.6; O2SAT 94–99
--- NOTE | 2024-07-21 09:45 | DVHPN2 ---
Reviewed: Care Plan, H&P, Labs, Medications, Previous Orders, Radiology Changes from previous H/P or p: No Changes Eyes: No Pain, No Vision change, No Conjunctivae inflammation, No Eyelid inflammation, No Other, No Redness ENT: No Ear pain, No Ear discharge, No Nose pain, No Nose discharge, No Nose congestion, No Mouth pain, No Mouth swelling, No Throat pain, No Throat swelling, No Other Cardiovascular: No Chest Pain, No Palpitations, No Orthopnea, No Paroxysmal Noc. Dyspnea, No Edema, No Lt Headedness, No Other Respiratory: No Cough, No Dry, No Shortness of breath, No SOB with excertion, No Wheezing, No Hemoptysis, No Pleuritic Pain, No Sputum, No Other Gastrointestinal: Nausea, Vomiting, Abdominal Pain; No Diarrhea, No Constipation, No Melena, No Hematochezia, No Other Genitourinary: No Dysuria, No Frequency, No Incontinence, No Hematuria, No Retention, No Other Musculoskeletal: No other, No neck pain, No shoulder pain, No arm pain, No back pain, No hand pain, No leg pain, No foot pain Skin: No Rash, No Lesions, No Jaundice, No Bruising, No Other Objective Vitals Vital Signs Date Time Temp Pulse Resp B/P (MAP) Pulse Ox O2 Delivery O2 Flow Rate FiO2 07/21/24 05:00 97.8 71 20 117/67 (84) 98 97.8 07/20/24 20:00 Nasal Cannula* 2 28 Intake/Output Intake and Output 07/21/24 07:00 Intake Total 1750 ml Balance 1750 ml Intake Oral 600 ml IV Total 1150 ml # Voids 1 # Bowel Movements 1 Medications Current Medications Medications Dose Ordered Sig/Cynthia Route Start Time Stop Time Status Last Admin Dose Admin Aspirin 81 mg DAILY PO 07/19/24 10:00 07/20/24 10:21 81 MG Atorvastatin Calcium 20 mg HS PO 07/19/24 22:00 07/20/24 22:00 20 MG Tamsulosin HCl 0.4 mg QPM PO 07/19/24 18:00 07/20/24 18:45 0.4 MG Sertraline HCl 50 mg DAILY PO 07/19/24 10:00 07/20/24 11:08 50 MG Sodium Chloride 1,000 ml @ 60 mls/hr [id number] IV 07/19/24 00:30 07/20/24 21:28 60 MLS/HR Acetaminophen/ Hydrocodone Bitart 1 tab Q4HP PRN PO 07/19/24 00:30 Ondansetron HCl 4 mg Q4HP PRN IV 07/19/24 00:30 Docusate Sodium 100 mg BIDPRN PRN PO 07/19/24 00:30 Acetaminophen 650 mg Q6HP PRN PO 07/19/24 00:30 Nitroglycerin 0.4 mg Q5MINP PRN SL 07/19/24 02:15 Morphine Sulfate 2 mg Q30M PRN IV 07/19/24 02:15 Ceftriaxone Sodium 50 ml @ 100 mls/hr DAILY@09 IV 07/20/24 09:00 07/20/24 10:21 100 MLS/HR Metronidazole 100 ml @ 100 mls/hr Q8HR IV 07/19/24 14:00 07/21/24 05:58 100 MLS/HR Promethazine HCl 25 mg Q6HR PO 07/19/24 18:00 07/20/24 12:37 25 MG Pantoprazole Sodium 40 mg DAILY IV 07/20/24 10:00 07/20/24 10:21 40 MG Laboratory Results Laboratory Tests 07/20/24 05:27 Urinalysis Test 07/19/24 07:40 Urine Color Yellow (Yellow) Urine Clarity Turbid (Clear) H Urine pH 5.5 (5.0-9.0) Urine Specific [place] 1.021 (1.001-1.035) Urine Protein Negative (Negative) Urine Ketones Negative (Negative) Urine Blood Negative /uL (Negative) Urine Nitrite 2+ (Negative) H Urine Bilirubin Negative (Negative) Urine Urobilinogen Normal mg/dL (Negative) Urine Leukocyte Esterase 2+ /uL (Negative) Urine RBC 1 /hpf (0 - 3) Urine WBC 53 /hpf (0 - 3) Urine Squamous Epithelial Cells None seen /hpf (<5) Urine Bacteria Few /hpf (None Seen) H Urine Glucose Normal mg/dL (Normal) Microbiology Microbiology Date/Time Source Procedure Growth Status 07/19/24 15:15 Blood Blood Culture - Preliminary NO GROWTH AFTER 24 HOURS OF INCUBATION. Resulted 07/19/24 07:40 Voided Urine Urine Culture - Preliminary Resulted Labs and/or images reviewed: Labs reviewed by me, Image(s) reviewed by me Assessment/Plan Assessment/Plan Intractable Nausea and vomiting: Zofran Dehydration: LR 125 per hour Acute abdominal pain: CT abdomen pelvis without contrast shows sigmoid mass with Mets to the liver and colitis GI consult for Dr. Marquez johansen, advised conservative symptomatic management History of colon cancer with Mets to the liver Depression Zoloft Mild Mental retardation Hypercholesterolemia: Lipitor BPH: Flomax Cachexia Severe malnutrition Time spent 55 minutes Condition guarded Patient is full code Advanced care planning time 20 minutes Patient came from [facility] living Facility: cad administrator Satnam [phone] at bedside and she advised the patient was diagnosed with colon cancer about a year ago and on chemotherapy with Dr. Saeed [facility] of [facility] since one month. Patient does not want to pursue any chemotherapy and wants to be discharged to nursing home facility for symptomatic management Patient is capable of making decision Plan discussed with: Patient Date of Service: Jul 21, 2024 Billing Provider: ROSEMARY AGUERO MD Common Visit Codes: [id number] INP/OBS CARE(HIGH) ROSEMARY AGUERO MD Jul 21, 2024 09:45
[2024-07-22] VITALS (9 sets, daily range): BP systolic 110–123; BP diastolic 68–76; PULSE 64–80; RESP 16–20; TEMP 97.3–98; O2SAT 95–99
--- NOTE | 2024-07-22 10:01 | DVHPN2 ---
Reviewed: Care Plan, H&P, Labs, Medications, Previous Orders, Radiology Changes from previous H/P or p: No Changes Eyes: No Pain, No Vision change, No Conjunctivae inflammation, No Eyelid inflammation, No Other, No Redness ENT: No Ear pain, No Ear discharge, No Nose pain, No Nose discharge, No Nose congestion, No Mouth pain, No Mouth swelling, No Throat pain, No Throat swelling, No Other Cardiovascular: No Chest Pain, No Palpitations, No Orthopnea, No Paroxysmal Noc. Dyspnea, No Edema, No Lt Headedness, No Other Respiratory: No Cough, No Dry, No Shortness of breath, No SOB with excertion, No Wheezing, No Hemoptysis, No Pleuritic Pain, No Sputum, No Other Gastrointestinal: Nausea, Vomiting, Abdominal Pain; No Diarrhea, No Constipation, No Melena, No Hematochezia, No Other Genitourinary: No Dysuria, No Frequency, No Incontinence, No Hematuria, No Retention, No Other Musculoskeletal: No other, No neck pain, No shoulder pain, No arm pain, No back pain, No hand pain, No leg pain, No foot pain Skin: No Rash, No Lesions, No Jaundice, No Bruising, No Other Objective Vitals Vital Signs Date Time Temp Pulse Resp B/P (MAP) Pulse Ox O2 Delivery O2 Flow Rate FiO2 07/22/24 08:51 97.8 70 16 111/68 (82) 97 97.8 07/22/24 08:00 Nasal Cannula* 2 28 Intake/Output Intake and Output 07/22/24 07:00 Intake Total 1590 ml Balance 1590 ml Intake Oral 1340 ml IV Total 250 ml # Voids 3 # Bowel Movements 2 Medications Current Medications Medications Dose Ordered Sig/Cynthia Route Start Time Stop Time Status Last Admin Dose Admin Aspirin 81 mg DAILY PO 07/19/24 10:00 07/21/24 10:43 81 MG Atorvastatin Calcium 20 mg HS PO 07/19/24 22:00 07/21/24 21:20 20 MG Tamsulosin HCl 0.4 mg QPM PO 07/19/24 18:00 07/21/24 18:00 0.4 MG Sertraline HCl 50 mg DAILY PO 07/19/24 10:00 07/21/24 10:42 50 MG Sodium Chloride 1,000 ml @ 60 mls/hr [id number] IV 07/19/24 00:30 07/20/24 21:28 60 MLS/HR Acetaminophen/ Hydrocodone Bitart 1 tab Q4HP PRN PO 07/19/24 00:30 Ondansetron HCl 4 mg Q4HP PRN IV 07/19/24 00:30 Docusate Sodium 100 mg BIDPRN PRN PO 07/19/24 00:30 Acetaminophen 650 mg Q6HP PRN PO 07/19/24 00:30 Nitroglycerin 0.4 mg Q5MINP PRN SL 07/19/24 02:15 Morphine Sulfate 2 mg Q30M PRN IV 07/19/24 02:15 Ceftriaxone Sodium 50 ml @ 100 mls/hr DAILY@09 IV 07/20/24 09:00 07/21/24 10:42 100 MLS/HR Metronidazole 100 ml @ 100 mls/hr Q8HR IV 07/19/24 14:00 07/22/24 05:34 100 MLS/HR Promethazine HCl 25 mg Q6HR PO 07/19/24 18:00 07/21/24 18:00 25 MG Pantoprazole Sodium 40 mg DAILY IV 07/20/24 10:00 07/21/24 10:43 40 MG Laboratory Results Laboratory Tests 07/20/24 05:27 Urinalysis Test 07/19/24 07:40 Urine Color Yellow (Yellow) Urine Clarity Turbid (Clear) H Urine pH 5.5 (5.0-9.0) Urine Specific [place] 1.021 (1.001-1.035) Urine Protein Negative (Negative) Urine Ketones Negative (Negative) Urine Blood Negative /uL (Negative) Urine Nitrite 2+ (Negative) H Urine Bilirubin Negative (Negative) Urine Urobilinogen Normal mg/dL (Negative) Urine Leukocyte Esterase 2+ /uL (Negative) Urine RBC 1 /hpf (0 - 3) Urine WBC 53 /hpf (0 - 3) Urine Squamous Epithelial Cells None seen /hpf (<5) Urine Bacteria Few /hpf (None Seen) H Urine Glucose Normal mg/dL (Normal) Microbiology Microbiology Date/Time Source Procedure Growth Status 07/20/24 07:29 Nose MRSA Screen - Final Complete 07/19/24 15:15 Blood Blood Culture - Preliminary NO GROWTH AFTER 48 HOURS OF INCUBATION. Resulted 07/19/24 07:40 Voided Urine Urine Culture - Preliminary Resulted Labs and/or images reviewed: Labs reviewed by me, Image(s) reviewed by me Assessment/Plan Assessment/Plan Failure to thrive Recurrent falls at home Intractable Nausea and vomiting: Zofran Dehydration: LR 125 per hour Acute abdominal pain: CT abdomen pelvis without contrast shows sigmoid mass with Mets to the liver and colitis GI consult for Dr. Marquez johansen, advised conservative symptomatic management History of colon cancer with Mets to the liver Depression Zoloft Mild Mental retardation Hypercholesterolemia: Lipitor BPH: Flomax Cachexia Severe malnutrition Patient's father and power of acute dialysis registered nurse Daniel [phone] at bedside and requesting nursing home facility placement. Physical therapy recommended nursing home facility placement Plan discussed with: Patient My Orders Orders - ROSEMARY AGUERO MD Procedure Category Date Status Time * Windshield Technician CONS 07/21/24 Transmitted Consult Pt Request For Service PT 07/21/24 Logged 16:27 * Windshield Technician CONS 07/22/24 Transmitted Consult Date of Service: Jul 22, 2024 Billing Provider: ROSEMARY AGUERO MD Common Visit Codes: [id number] INP/OBS CARE(HIGH) ROSEMARY AGUERO MD Jul 22, 2024 10:01
--- NOTE | 2024-07-22 10:05 | DVHDS2 ---
Discharge Summary Date of Admission Jul 19, 2024 at 02:09 Date of Discharge: Jul 22, 2024 Admitting Diagnosis Abdominal pain nausea and vomiting and failure to thrive Wounds: None Labs/Diagnostic Data: Laboratory Results Test 07/20/24 05:27 07/19/24 07:40 07/18/24 20:40 White Blood Count 7.9 10^3/uL (4.4-10.8) Red Blood Count 4.37 10^6/uL (4.5-5.90) Hemoglobin 11.1 g/dL (13.5-17.5) Hematocrit 35.2 % (41.0-53.0) Mean Corpuscular Volume 80.5 fL (80.0-100.0) Mean Corpuscular Hemoglobin 25.4 pg (28.0-32.0) Mean Corpuscular Hemoglobin Concent 31.6 g/dL (32.0-36.0) Red Cell Distribution Width 17.1 % (11.8-14.3) Platelet Count 170 10^3/uL (140-450) Mean Platelet Volume 7.0 fL (6.9-10.8) Neutrophils (%) (Auto) 77.2 % (37.0-80.0) Lymphocytes (%) (Auto) 8.2 % (10.0-50.0) Monocytes (%) (Auto) 11.2 % (0.0-12.0) Eosinophils (%) (Auto) 3.0 % (0.0-7.0) Basophils (%) (Auto) 0.4 % (0.0-2.0) Neutrophils # (Auto) 6.1 10 ^3/uL (1.6-8.6) Lymphocytes # (Auto) 0.7 10 ^3/uL (0.4-5.4) Monocytes # (Auto) 0.9 10 ^3/uL (0-1.3) Eosinophils # (Auto) 0.2 10 ^3/uL (0-0.8) Basophils # (Auto) 0 10 ^3/uL (0-0.2) Nucleated Red Blood Cells 0.1 % Sodium Level 140 mmol/L (136-145) Potassium Level 3.6 mmol/L (3.5-5.1) Chloride Level 109 mmol/L (98-107) Carbon Dioxide Level 24 mmol/L (20-31) Anion Gap 7 (5-15) Blood Urea Nitrogen 12 mg/dL (9-23) Creatinine 0.78 mg/dL (0.700-1.30) Glomerular Filtration Rate Calc 102 mL/min (>90) BUN/Creatinine Ratio 15.4 (10.0-20.0) Serum Glucose 89 mg/dL (74-106) Calcium Level 9.2 mg/dL (8.7-10.4) Total Bilirubin 0.5 mg/dL (0.2-1.0) Aspartate Amino Transferase (AST) 45 U/L (13-40) Alanine Aminotransferase (ALT) 29 U/L (7-40) Alkaline Phosphatase 84 U/L (46-116) Total Protein 5.9 g/dL (5.7-8.2) Albumin 3.8 g/dL (3.2-4.8) Urine Color Yellow (Yellow) Urine Clarity Turbid (Clear) Urine pH 5.5 (5.0-9.0) Urine Specific [place] 1.021 (1.001-1.035) Urine Protein Negative (Negative) Urine Ketones Negative (Negative) Urine Blood Negative /uL (Negative) Urine Nitrite 2+ (Negative) Urine Bilirubin Negative (Negative) Urine Urobilinogen Normal mg/dL (Negative) Urine Leukocyte Esterase 2+ /uL (Negative) Urine RBC 1 /hpf (0 - 3) Urine WBC 53 /hpf (0 - 3) Urine Squamous Epithelial Cells None seen /hpf (<5) Urine Bacteria Few /hpf (None Seen) Urine Glucose Normal mg/dL (Normal) Troponin I High Sensitivity 51 ng/L (</=54) Lipase 36 U/L (12-53) Other Laboratory Tests 07/20/24 05:27 Brief Hx & Hospital Course: 59-year-old male living in a board and care for the last seven years burden to the ER for the complaint of abdominal pain nausea and vomiting and failure to thrive. CT abdomen pelvis without contrast showed sigmoid mass with metastasis to the liver. The patient was recently diagnosed with colon cancer one month ago and underwent chemotherapy at a local oncology clinic. GI consult by Dr. Zayas advised conservative management . patient's father Daniel [phone] at bedside and requested no further chemotherapy and senior living facility for rehab and the patient agreed. Being discharged to senior living facility Consults/Reason for consult GI Dr. Zayas Operations or Procedures CT abdomen pelvis without contrast Condition at Discharge: Poor Final Diagnosis/Problems List Failure to thrive Recurrent falls at home Intractable Nausea and vomiting: Zofran Dehydration: LR 125 per hour Acute abdominal pain: CT abdomen pelvis without contrast shows sigmoid mass with Mets to the liver and colitis GI consult for Dr. Zayas appreciated, advised conservative symptomatic management History of colon cancer with Mets to the liver Depression Zoloft Mild Mental retardation Hypercholesterolemia: Lipitor BPH: Flomax Cachexia Severe malnutrition Discharge Disposition: Group Home Facility Discharge Instruct/Medications Diet: Cardiac 2g Na,low cholest Activity: Light activity Follow Up/Referral: Follow up with the residential Medications: see list 39 (Time taken for discharge summary 39 minutes) Discharge Statement: "Patient was advised to return to the ER or call 911 if any headaches, dizziness, shortness of breath, chest pain, abdominal pain, bleeding, fevers, or worsening of medical condition. Patient was counseled about treatment plan, medications, possible side effects, patientverbalized understanding. All questions were answered to the best of my ability. This discharge took greater then 30 minutes in planning, reviewing documentation, counseling the patient, and discussing with other team members." ASSESSMENT ASSESSMENT Hospital Course Marginal improvement Assessment Failure to thrive Recurrent falls at home Intractable Nausea and vomiting: Zofran Dehydration: LR 125 per hour Acute abdominal pain: CT abdomen pelvis without contrast shows sigmoid mass with Mets to the liver and colitis GI consult for Dr. Zayas appreciated, advised conservative symptomatic management History of colon cancer with Mets to the liver Depression Zoloft Mild Mental retardation Hypercholesterolemia: Lipitor BPH: Flomax Cachexia Severe malnutrition Date of Service: Jul 22, 2024 Billing Provider: ROSEMARY AGUERO MD Common Visit Codes: 37731-JLK/[id number] DISCH DAY >30min ROSEMARY AGUERO MD Jul 22, 2024 10:05
[2024-07-22 12:32] LABS: COVID19 ANTIGEN SOFIA FIA NEGATIVE (NEGATIVE)
[2024-07-23 01:00] VITALS: BP 113/70; PULSE 89; RESP 17; TEMP 97.6; O2SAT 98
[2024-07-23 05:00] VITALS: BP 114/69; PULSE 78; RESP 17; TEMP 97.9; O2SAT 98
[2024-07-23 08:30] VITALS: BP 114/52; PULSE 82; RESP 16; TEMP 97.4; O2SAT 98
--- NOTE | 2024-07-23 09:21 | DVHPN2 ---
Reviewed: Care Plan, H&P, Labs, Medications, Previous Orders, Radiology Changes from previous H/P or p: No Changes Eyes: No Pain, No Vision change, No Conjunctivae inflammation, No Eyelid inflammation, No Other, No Redness ENT: No Ear pain, No Ear discharge, No Nose pain, No Nose discharge, No Nose congestion, No Mouth pain, No Mouth swelling, No Throat pain, No Throat swelling, No Other Cardiovascular: No Chest Pain, No Palpitations, No Orthopnea, No Paroxysmal Noc. Dyspnea, No Edema, No Lt Headedness, No Other Respiratory: No Cough, No Dry, No Shortness of breath, No SOB with excertion, No Wheezing, No Hemoptysis, No Pleuritic Pain, No Sputum, No Other Gastrointestinal: Nausea, Vomiting, Abdominal Pain; No Diarrhea, No Constipation, No Melena, No Hematochezia, No Other Genitourinary: No Dysuria, No Frequency, No Incontinence, No Hematuria, No Retention, No Other Musculoskeletal: No other, No neck pain, No shoulder pain, No arm pain, No back pain, No hand pain, No leg pain, No foot pain Skin: No Rash, No Lesions, No Jaundice, No Bruising, No Other Objective Vitals Vital Signs Date Time Temp Pulse Resp B/P (MAP) Pulse Ox O2 Delivery O2 Flow Rate FiO2 07/23/24 08:30 97.4 82 16 114/52 (72) 98 97.4 07/22/24 20:00 Nasal Cannula* 2 28 Intake/Output Intake and Output 07/23/24 07:00 Intake Total 1950 ml Output Total 0 ml Balance 1950 ml Intake Oral 1650 ml IV Total 300 ml Stool Total 0 ml # Voids 2 Medications Current Medications Medications Dose Ordered Sig/Cynthia Route Start Time Stop Time Status Last Admin Dose Admin Aspirin 81 mg DAILY PO 07/19/24 10:00 07/22/24 10:10 81 MG Atorvastatin Calcium 20 mg HS PO 07/19/24 22:00 07/22/24 22:45 20 MG Tamsulosin HCl 0.4 mg QPM PO 07/19/24 18:00 07/22/24 17:52 0.4 MG Sertraline HCl 50 mg DAILY PO 07/19/24 10:00 07/22/24 10:09 50 MG Sodium Chloride 1,000 ml @ 60 mls/hr [id number] IV 07/19/24 00:30 07/20/24 21:28 60 MLS/HR Acetaminophen/ Hydrocodone Bitart 1 tab Q4HP PRN PO 07/19/24 00:30 Ondansetron HCl 4 mg Q4HP PRN IV 07/19/24 00:30 Docusate Sodium 100 mg BIDPRN PRN PO 07/19/24 00:30 Acetaminophen 650 mg Q6HP PRN PO 07/19/24 00:30 Nitroglycerin 0.4 mg Q5MINP PRN SL 07/19/24 02:15 Morphine Sulfate 2 mg Q30M PRN IV 07/19/24 02:15 Ceftriaxone Sodium 50 ml @ 100 mls/hr DAILY@09 IV 07/20/24 09:00 07/23/24 09:11 100 MLS/HR Metronidazole 100 ml @ 100 mls/hr Q8HR IV 07/19/24 14:00 07/23/24 04:50 100 MLS/HR Promethazine HCl 25 mg Q6HR PO 07/19/24 18:00 07/23/24 04:50 25 MG Pantoprazole Sodium 40 mg DAILY IV 07/20/24 10:00 07/22/24 10:10 40 MG Laboratory Results Laboratory Tests 07/20/24 05:27 Urinalysis Test 07/19/24 07:40 Urine Color Yellow (Yellow) Urine Clarity Turbid (Clear) H Urine pH 5.5 (5.0-9.0) Urine Specific [place] 1.021 (1.001-1.035) Urine Protein Negative (Negative) Urine Ketones Negative (Negative) Urine Blood Negative /uL (Negative) Urine Nitrite 2+ (Negative) H Urine Bilirubin Negative (Negative) Urine Urobilinogen Normal mg/dL (Negative) Urine Leukocyte Esterase 2+ /uL (Negative) Urine RBC 1 /hpf (0 - 3) Urine WBC 53 /hpf (0 - 3) Urine Squamous Epithelial Cells None seen /hpf (<5) Urine Bacteria Few /hpf (None Seen) H Urine Glucose Normal mg/dL (Normal) Microbiology Microbiology Date/Time Source Procedure Growth Status 07/20/24 07:29 Nose MRSA Screen - Final Complete 07/19/24 15:15 Blood Blood Culture - Preliminary NO GROWTH AFTER 72 HOURS OF INCUBATION. Resulted 07/19/24 07:40 Voided Urine Urine Culture - Preliminary Escherichia coli Resulted Labs and/or images reviewed: Labs reviewed by me, Image(s) reviewed by me Assessment/Plan Assessment/Plan Failure to thrive Recurrent falls at home Intractable Nausea and vomiting: Zofran Dehydration: LR 125 per hour Acute abdominal pain: CT abdomen pelvis without contrast shows sigmoid mass with Mets to the liver and colitis GI consult for Dr. Marquez johansen, advised conservative symptomatic management History of colon cancer with Mets to the liver Depression Zoloft Mild Mental retardation Hypercholesterolemia: Lipitor BPH: Flomax Cachexia Severe malnutrition Patient was [facility] on 07/22/2024 and waiting for transportation. Plan discussed with: Patient My Orders Orders - ROSEMARY AGUERO MD Procedure Category Date Status Time Discharge DISCHARGE 07/22/24 Transmitted 10:01 * Sql Consultant CONS 07/22/24 Transmitted Consult 10:45 Date of Service: Jul 23, 2024 Billing Provider: ROSEMARY AGUERO MD Common Visit Codes: [id number] INP/OBS CARE(HIGH) ROSEMARY AGUERO MD Jul 23, 2024 09:21
[2024-07-23 13:07] VITALS: BP 123/73; PULSE 80; RESP 17; TEMP 96.8; O2SAT 99
== END 2024-07-23 13:31 | DRG 374 ==
LOC: EDBD 20:07 → ER 20:07 → OVERFLOW 07-19 02:09 → CENTRAL 07-19 23:30
PROVIDERS: ADMIT Nurse Practitioner Family; ATTEND Family Medicine
DX: C18.9 Malignant neoplasm of colon, unspecified (principal); E43 Unspecified severe protein-calorie malnutrition; C78.7 Secondary malignant neoplasm of liver and intrahepatic bile duct; Z68.1 Body mass index [BMI] 19.9 or less, adult; R11.2 Nausea with vomiting, unspecified; K52.9 Noninfective gastroenteritis and colitis, unspecified; R62.7 Adult failure to thrive; E78.00 Pure hypercholesterolemia, unspecified; E86.0 Dehydration; N40.0 Benign prostatic hyperplasia without lower urinary tract symptoms; F32.A Depression, unspecified; F70 Mild intellectual disabilities; R29.6 Repeated falls; Z80.0 Family history of malignant neoplasm of digestive organs; E88.A Wasting disease (syndrome) due to underlying condition; T45.1X5A Adverse effect of antineoplastic and immunosuppressive drugs, initial encounter
CPT/HCPCS: 36415; 71045; 74177; 80053; 81001; 83690; 84484; 85025; 87040; 87081; 87086; 87088; 87186; 87426; 97110; 97116; 97163; G0378; J2405; J2470; J3490

== ENCOUNTER 2025-04-02 14:02 | Inpatient (IN) | payer MEDICARE, MEDICAID ==
[~2025-04-02] VITALS: Ht 175.3 cm; Wt 63.1 kg
[~2025-04-02 14:02] MED LIST: ASPI-628 PO; ATOR40TA52 PO; CHOL50007 PO; FERR325T20 PO; LORA-483 PO; MELA10CA PO; MULT-443 PO; ONDA-188 PO; SERT-289 PO; TAMS0.4C39 PO
[2025-04-02 14:21] VITALS: PULSE 112; RESP 20; O2SAT 98
--- NOTE | 2025-04-02 14:43 | ED.PDOC ---
History of Present Illness HPI Comments 60 year old male presents to the ED via EMS with a chief complaint of abnormal labs onset today. Per EMS, patient is from [facility], was sent by PCP, Dr. Lamar due to abnormal WBC levels. Patient states he has been experiencing dizziness, headache, dysuria for the past few days. PMHx HLD, HTN, Depression. Denies chest pain,shortness of breath, nausea, vomiting, diarrhea, abdominal pain, fevers, chills, hematuria. No other symptoms or modifying factors present at this time. Chief Complaint: Urinary Time Seen by MD: 13:55 Reviewed Notes: Medications, Allergies Allergies: Coded Allergies: NO KNOWN ALLERGIES (Unverified , 07/18/24) Home Meds Reported Medications Melatonin (MELATONIN) 10 Mg Cap, 5 MG PO HS, CAP 07/20/24 Loratadine (CLARITIN TABLET) 10 Mg Tb, 1 TAB PO DAILY 07/20/24 Ferrous Sulfate (Ferosul) 325 Mg Tab, 1 TAB PO DAILY 07/20/24 Aspirin (Aspirin Adult Low Dose) 81 Mg Tab, 1 TAB PO DAILY 07/20/24 Atorvastatin Calcium (ATORVASTATIN CALCIUM) 40 Mg Tab, 1 TAB PO DAILY 07/20/24 Tamsulosin Hcl (Tamsulosin Hcl) 0.4 Mg Cap, 2 CAP PO DAILY 07/20/24 Multiple Vitamin (One-Daily Multi-Vitamin) 1 Tab Tab, 1 TAB PO DAILY 07/20/24 Cholecalciferol (VITAMIN D3) 5,000 Unit Cap, 1 CAP PO DAILY 07/20/24 Sertraline HCl (Sertraline HCl) 50 Mg Tab, 1 TAB PO DAILY 07/20/24 Ondansetron HCl (Ondansetron Hydrochloride) 4 Mg Tab, 1 TAB PO Q8HPRN PRN for nausea/vomiting 07/20/24 Information Source: Patient, Emergency Med Personnel Mode of Arrival: EMS Severity: Moderate Timing: Hours Duration: Since onset Prehospital treatment: None Past Medical History PAST MEDICAL HISTORY: Depression, High Lipids, HTN Surgical History: Unknown Family History Family History: Unknown Social History Smoker: Non-Smoker Alcohol: Denies ETOH Use Drugs: Denies Drug Use Lives In: Longterm Constitutional: denies: chills, diaphoresis, fatigue, fever, malaise, sweats, weakness, others EENTM: denies: blurred vision, double vision, ear bleeding, ear discharge, ear drainage, ear pain, ear ringing, eye pain, eye redness, hearing loss, mouth pain, mouth swelling, nasal discharge, nose bleeding, nose congestion, nose pain, photophobia, tearing, throat pain, throat swelling, voice changes, others Respiratory: denies: cough, hemoptysis, orthopnea, SOB at rest, shortness of breath, SOB with excertion, stridor, wheezing, others Cardiovascular: denies: chest pain, dizzy spells, diaphoresis, Dyspnea on exertion, edema, irregular heart beat, left arm pain, lightheadedness, palpitations, PND, syncope, others Gastrointestinal: denies: abdomen distended, abdominal pain, blood streaked bowels, constipated, diarrhea, dysphagia, difficulty swallowing, hematemesis, melena, nausea, poor appetite, poor fluid intake, rectal bleeding, rectal pain, vomiting, others Genitourinary: reports: dysuria; denies: burning, flank pain, frequency, hematuria, incontinence, penile discharge, penile sore, pain, testicle pain, testicle swelling, urgency, others Neurological: reports: dizziness, headache; denies: fainting, left sided numbness, left sided weakness, numbness, paresthesia, pre-existing deficit, right sided numbness, right sided weakness, seizure, speech problems, tingling, tremors, weakness, others Musculoskeletal: denies: back pain, gout, joint pain, joint swelling, muscle pain, muscle stiffness, neck pain, others Integumetry: denies: bruises, change in color, change in hair/nails, dryness, laceration, lesions, lumps, rash, wounds, others Allergic/Immunocompromised: denies: Difficulty Healing, Frequent Infections, Hives, Itching, others Hematologic/Lymphatic: denies: anemia, blood clots, easy bleeding, easy bruising, swollen glands, others Endocrine: denies: excessive hunger, excessive sweating, excessive thirst, excessive urination, flushing, intolerance to cold, intolerance to heat, unexplained weight gain, unexplained weight loss, others Psychiatric: denies: anxiety, bipolar disorder, depression, hopeless, panic disorder, schizophrenia, sleepless, suicidal, others All Other Systems: Reviewed and Negative Physical Exam General Appearance: Moderate Distress, Normal HEENT: Normal ENT Inspection, Pharynx Normal, TMs Normal Neck: Full Range of Motion, Non-Tender, Normal, Normal Inspection Respiratory: Chest Non-Tender, Lungs Clear, No Accessory Muscle Use, No Respiratory Distress, Normal Breath Sounds Cardiovascular: No Edema, No JVD, No Murmur, No Gallop, Normal Peripheral Pulses, Regular Rate/Rhythm Breast Exam: Deferred Gastrointestinal: No Organomegaly, Non Tender, No Pulsatile Mass, Normal Bowel Sounds, Soft Genitalia: Deferred Pelvic: Deferred Rectal: Deferred Extremities: No calf tenderness, Normal capillary refill, Normal inspection, No rmal range of motion, Non-tender, No pedal edema Musculoskeletal : Apperance: Normal Neurologic: Alert, lens maker II-XII nml as Tested, No Motor Deficits, Normal Affect, Normal Mood, No Sensory Deficits Cerebellar Function: NOT DONE Reflexes: NOT DONE Skin: Dry, Normal Color, Warm Peripheral Pulses: 3+ Radial (R), 3+ Radial (L) Lymphatic: No Adenopathy Was a procedure done? Was a procedure done?: No Differential Dx Considerations may include: Generalized weakness Electrolyte imbalance X-Ray, Labs, Meds, VS Vital Signs Date Time Temp Pulse Resp B/P (MAP) Pulse Ox O2 Delivery O2 Flow Rate FiO2 04/02/25 14:21 112 20 98 Room Air* 0 21 04/02/25 14:18 98.0 112 20 119/83 (95) 98 98.0 04/02/25 14:10 98.5 76 24 111/70 98 98.5 Lab Test 04/02/25 15:30 04/02/25 14:36 Range/Units Lactic Acid Level 1.9 0.4-2.0 mmol/L White Blood Count 17.4 H 4.4-10.8 10^3/uL Red Blood Count 4.90 4.5-5.90 10^6/uL Hemoglobin 11.0 L 13.5-17.5 g/dL Hematocrit 35.5 L 41.0-53.0 % Mean Corpuscular Volume 72.5 L 80.0-100.0 fL Mean Corpuscular Hemoglobin 22.5 L 28.0-32.0 pg Mean Corpuscular Hemoglobin Concent 31.0 L 32.0-36.0 g/dL Red Cell Distribution Width 17.7 H 11.8-14.3 % Platelet Count 485 H 140-450 10^3/uL Mean Platelet Volume 7.0 6.9-10.8 fL Neutrophils (%) (Auto) 83.3 H 37.0-80.0 % Lymphocytes (%) (Auto) 6.4 L 10.0-50.0 % Monocytes (%) (Auto) 9.8 0.0-12.0 % Eosinophils (%) (Auto) 0.1 0.0-7.0 % Basophils (%) (Auto) 0.4 0.0-2.0 % Neutrophils # (Auto) 14.5 H 1.6-8.6 10 ^3/uL Lymphocytes # (Auto) 1.1 0.4-5.4 10 ^3/uL Monocytes # (Auto) 1.7 H 0-1.3 10 ^3/uL Eosinophils # (Auto) 0 0-0.8 10 ^3/uL Basophils # (Auto) 0.1 0-0.2 10 ^3/uL Nucleated Red Blood Cells 0.0 % Prothrombin Time 11.1 9.3-11.8 sec Prothrombin Time INR 1.05 0.9-1.15 Activated Partial Thromboplast Time 31.3 24.5-34.5 SEC Sodium Level 138 136-145 mmol/L Potassium Level 3.5 3.5-5.1 mmol/L Chloride Level 103 98-107 mmol/L Carbon Dioxide Level 25 20-31 mmol/L Anion Gap 10 5-15 Blood Urea Nitrogen 11 9-23 mg/dL Creatinine 0.93 0.700-1.30 mg/dL Glomerular Filtration Rate Calc 93 >90 mL/min BUN/Creatinine Ratio 11.8 10.0-20.0 Serum Glucose 100 74-106 mg/dL Calcium Level 8.8 8.7-10.4 mg/dL Patient alert. Complaining of generalized weakness. WBC elevated. Tachycardic. Possible urinary tract infection. Possible pneumonitis. Establish intravenous access. Was given fluids. Was given Rocephin. Possible sepsis. Explained to the patient. Continue monitoring. [address] [address] Ph: [phone] DIAGNOSTIC IMAGING Diagnostic Imaging Report : [id number] Signed PATIENT: ALLYSSA GEORGE ACCT: [id number] UNIT: [id number] : 1965 LOC: ER ROOM / BED: / AGE / SEX: 60 / M ADM STATUS: REG ER SERVICE 1501 ORDERING PHYSICIAN: KOLTON WHEELER MD PROCEDURE(s): CXRP - CHEST PORTABLE REASON: sob ORDER NUMBER(s): [id number], ACCESSION NUMBER(s): [id number] CHEST RADIOGRAPH Indication: sob Technique: Single frontal view of the chest was obtained Comparison: XY CHEST PORTABLE on DOS: 07/18/24 FINDINGS: Lines and Tubes: None Lungs: 13-14 mm francisca nodule left upper lung field. may represent fortuitous confluence of bony densities. Pleura: No effusion. No pneumothorax. Cardiomediastinal contours: Unremarkable Bones: No acute osseous abnormality. IMPRESSION: 1. 13-14 mm questionable nodule left upper lung field. May represent fortuitous confluence bony density. Recommend shallow oblique films (10 degrees right and left) or CT of the chest noncontrast. ATED BY: PANKAJ MICHEL Jr., DO DICTATED DATE/TIME: 04/02/25 153 SIGNED BY: PANKAJ MICHEL Jr., SIGNED DATE/TIME: 04/02/25 153 CC: Time of 1ST Reevaluation: 14:25 Reevaluation 1ST: Unchanged Patient Education/Counseling: Diagnosis, Treatment, Prognosis Family Education/Counseling: No Family Present SEPSIS Sepsis Screen Date sepsis recognized/suspect: Apr 02, 2025 Time Sepsis recognized/suspect: 1412 Recent Procedure: No (T) On Antibiotic Therapy: No Respiratory Rate >20: No Heart Rate >90: No Temp<36 C (96.8 F) or >38.3 C: No SBP <90 or MAP <65 mmHG: No New Acute Mental Status Change: No Is the patient on CPAP, BIPAP,: No Physician Orders Urinalysis (04/02/25 14:11) Chest Portable (04/02/25 15:01) Accucheck (04/02/25 15:01) Blood Culture (04/02/25 15:01) Lactic Acid W/ Reflex Order (04/02/25 18:00) Cefepime 1gm/ 50ml (Maxipime 1gm/50ml) (04/02/25 22:00) Notify Md If Map <65 Or Bp<90 (04/02/25 15:01) If Map<65 Start Vasopressor (04/02/25 15:01) Sepsis Reassesment After Fluid (04/02/25 16:01) Azithromycin 500mg/ 250ml (Zithromax 50 (04/02/25 15:15) Sodium Chloride 0.9% (04/02/25 15:15) Vital Signs Date Time Temp Pulse Resp B/P (MAP) Pulse Ox O2 Delivery O2 Flow Rate FiO2 04/02/25 14:21 112 20 98 Room Air* 0 21 04/02/25 14:18 98.0 112 20 119/83 (95) 98 98.0 04/02/25 14:10 98.5 76 24 111/70 98 98.5 Laboratory Tests Test 04/02/25 14:36 04/02/25 15:30 White Blood Count 17.4 10^3/uL (4.4-10.8) H Lactic Acid Level 1.9 mmol/L (0.4-2.0) Departure 1 Departure Time of Disposition: 15:01 Impression: Primary Impression: Sepsis, unspecified organism Qualified Codes: A41.9 - Sepsis, unspecified organism Disposition: ADMITTED INPATIENT Admit to: Med Surg Condition: Guarded Critical Care Note Critical Care Time?: No Stability Stability form required: No Heart Score Heart Score: Heart Score Response (Comments) Value History N/A 0 EKG N/A 0 Age N/A 0 Risk Factors N/A 0 Troponin N/A 0 Total 0 I personally scribed for KOLTON WHEELER MD ([email or web address]) on 04/02/25 at 14:43. Electronically submitted by Alexandria Michael ([email or web address]). I personally scribed for KOLTON WHEELER MD ([email or web address]) on 04/02/25 at 16:56. Electronically submitted by Alexandria Michael ([email or web address]). KOLTON WHEELER MD Apr 02, 2025 14:43
[2025-04-02 14:52] LABS: Hematocrit 35.5 % (41.0-53.0); Hemoglobin 11.0 g/dL (13.5-17.5); Mean Corpuscular Hemoglobin 22.5 pg (28.0-32.0); Mean Corpuscular Volume 72.5 fL (80.0-100.0); Nucleated Red Blood Cells % 0.0 %
[2025-04-02 14:57] LABS: Chloride 103 mmol/L (98-107); Potassium 3.5 mmol/L (3.5-5.1); Sodium 138 mmol/L (136-145)
[2025-04-02 14:58] LABS: Anion Gap 10 (5-15); Calcium 8.8 mg/dL (8.7-10.4); Carbon Dioxide 25 mmol/L (20-31)
[2025-04-02 15:03] LABS: BUN/Creatinine Ratio 11.8 (10.0-20.0); Blood Urea Nitrogen 11 mg/dL (9-23); Glucose 100 mg/dL (74-106)
--- NOTE | 2025-04-02 15:33 | DVH ---
CHEST RADIOGRAPH Indication: sob Technique: Single frontal view of the chest was obtained Comparison: XY CHEST PORTABLE on DOS: 07/18/24 FINDINGS: Lines and Tubes: None Lungs: 13-14 mm francisca nodule left upper lung field. may represent fortuitous confluence of bony densities. Pleura: No effusion. No pneumothorax. Cardiomediastinal contours: Unremarkable Bones: No acute osseous abnormality. IMPRESSION: 1. 13-14 mm questionable nodule left upper lung field. May represent fortuitous confluence bony densi ty. Recommend shallow oblique films (10 degrees right and left) or CT of the chest noncontrast.
[2025-04-02 16:37] LABS: INR 1.05 (0.9-1.15); Partial Thromboplastin Time 31.3 SEC (24.5-34.5); Prothrombin Time 11.1 sec (9.3-11.8)
[2025-04-02] MEDS: SODIUM CHLORIDE 0.9% 1,000 ML IV ONE ×4 (17:29→20:06)
[2025-04-02] MEDS: AZITHROMYCIN 500MG/ 250ML 250 ML IV ONE (17:29)
[2025-04-02] MEDS: VANCOMYCIN 1GM/250ML KIT 250 ML IV ONE (17:30)
[2025-04-02] MEDS: VANCOMYCIN 1GM/200ML PM 200 ML IV ONE (17:30)
--- NOTE | 2025-04-02 18:09 | DVHHP2 ---
Admitting Diagnosis: SOB History of Present Illness 60 year old male presents to the ED via EMS with a chief complaint of abnormal labs onset today. Per EMS, patient is from [facility], was sent by PCP, Dr. Lamar due to abnormal WBC levels. Patient states he has been experiencing dizziness, headache, dysuria for the past few days. PMHx HLD, HTN, Depression. Denies chest pain,shortness of breath, nausea, vomiting, diarrhea, abdominal pain, fevers, chills, hematuria. No other symptoms or modifying factors present at this time. PAST MEDICAL HISTORY: Depression, High Lipids, HTN Surgical History: Unknown Family History Family History: Unknown Social History Smoker: Non-Smoker Alcohol: Denies ETOH Use Drugs: Denies Drug Use Lives In: [facility] Patient Family History: Colon cancer G8 MOTHER Allergies: Coded Allergies: NO KNOWN ALLERGIES (Unverified , 07/18/24) Home Meds Reported Medications Melatonin (MELATONIN) 10 Mg Cap, 5 MG PO HS, CAP 07/20/24 Loratadine (CLARITIN TABLET) 10 Mg Tb, 1 TAB PO DAILY 07/20/24 Ferrous Sulfate (Ferosul) 325 Mg Tab, 1 TAB PO DAILY 07/20/24 Aspirin (Aspirin Adult Low Dose) 81 Mg Tab, 1 TAB PO DAILY 07/20/24 Atorvastatin Calcium (ATORVASTATIN CALCIUM) 40 Mg Tab, 1 TAB PO DAILY 07/20/24 Tamsulosin Hcl (Tamsulosin Hcl) 0.4 Mg Cap, 2 CAP PO DAILY 07/20/24 Multiple Vitamin (One-Daily Multi-Vitamin) 1 Tab Tab, 1 TAB PO DAILY 07/20/24 Cholecalciferol (VITAMIN D3) 5,000 Unit Cap, 1 CAP PO DAILY 07/20/24 Sertraline HCl (Sertraline HCl) 50 Mg Tab, 1 TAB PO DAILY 07/20/24 Ondansetron HCl (Ondansetron Hydrochloride) 4 Mg Tab, 1 TAB PO Q8HPRN PRN for nausea/vomiting 07/20/24 Current Medications Current Medications Medications (Trade) Dose Ordered Sig/Cynthia Route PRN Reason Start Time Stop Time Status Last Admin Cefepime HCl 50 ml @ 12.5 mls/hr Q8HR IV 04/02/25 22:00 Vital Signs Vital Signs Date Time Temp Pulse Resp B/P (MAP) Pulse Ox O2 Delivery O2 Flow Rate FiO2 04/02/25 17:20 98.1 102 12 123/54 (77) 95 98.1 04/02/25 17:20 Room Air 04/02/25 14:21 0 21 Physical Exam Generally 60 years old, morbidly obese, lying in bed. No apparent distress HEENT-atraumatic normocephalic Heart-regular rate and rhythm Lungs clear to auscultate Abdomen soft, nontender nondistended Musculoskeletal-no edema cyanosis Neuro-awake, answers questions, follows some commands. Pleasant.strength and sensation intact. SEPSIS Sepsis Screen Date sepsis recognized/suspect: Apr 02, 2025 Time Sepsis recognized/suspect: 1411 Recent Procedure: No (T) On Antibiotic Therapy: No Respiratory Rate >20: No Heart Rate >90: No Temp<36 C (96.8 F) or >38.3 C: No SBP <90 or MAP <65 mmHG: No New Acute Mental Status Change: No Is the patient on CPAP, BIPAP,: No Physician Orders Urinalysis (04/02/25 14:11) Chest Portable (04/02/25 15:01) Accucheck (04/02/25 15:01) Blood Culture (04/02/25 15:01) Lactic Acid W/ Reflex Order (04/02/25 18:00) Cefepime 1gm/ 50ml (Maxipime 1gm/50ml) (04/02/25 22:00) Notify Md If Map <65 Or Bp<90 (04/02/25 15:01) If Map<65 Start Vasopressor (04/02/25 15:01) Sepsis Reassesment After Fluid (04/02/25 16:01) Sodium Chloride 0.9% (04/02/25 15:15) Regular Diet (04/02/25 Dinner) Vital Signs Date Time Temp Pulse Resp B/P (MAP) Pulse Ox O2 Delivery O2 Flow Rate FiO2 04/02/25 17:20 98.1 102 12 123/54 (77) 95 98.1 04/02/25 17:20 102 12 98 Room Air 04/02/25 14:21 112 20 98 Room Air* 0 21 04/02/25 14:18 98.0 112 20 119/83 (95) 98 98.0 04/02/25 14:10 98.5 76 24 111/70 98 98.5 Laboratory Tests Test 04/02/25 14:36 04/02/25 15:30 04/02/25 18:22 White Blood Count 17.4 10^3/uL (4.4-10.8) H Lactic Acid Level 1.9 mmol/L (0.4-2.0) Pending Medications Medications Dose Ordered Sig/Cynthia Route Start Time Stop Time Status Last Admin Dose Admin Azithromycin 250 ml @ 125 mls/hr ONCE ONCE IV 04/02/25 15:15 04/02/25 17:14 DC 04/02/25 17:29 Sodium Chloride 1,000 ml @ 150 mls/hr Q6H40M ONCE IV 04/02/25 15:15 04/02/25 21:54 04/02/25 18:58 Sodium Chloride 1,000 ml @ 1,000 mls/hr Q1H ONCE IV 04/02/25 15:15 04/02/25 16:14 DC 04/02/25 17:29 Vancomycin HCl 200 ml @ 200 mls/hr ONCE ONCE IV 04/02/25 15:15 04/02/25 16:14 DC 04/02/25 17:30 Results Labs Test 04/02/25 18:22 04/02/25 14:36 Range/Units White Blood Count 17.4 H 4.4-10.8 10^3/uL Red Blood Count 4.90 4.5-5.90 10^6/uL Hemoglobin 11.0 L 13.5-17.5 g/dL Hematocrit 35.5 L 41.0-53.0 % Mean Corpuscular Volume 72.5 L 80.0-100.0 fL Mean Corpuscular Hemoglobin 22.5 L 28.0-32.0 pg Mean Corpuscular Hemoglobin Concent 31.0 L 32.0-36.0 g/dL Red Cell Distribution Width 17.7 H 11.8-14.3 % Platelet Count 485 H 140-450 10^3/uL Mean Platelet Volume 7.0 6.9-10.8 fL Neutrophils (%) (Auto) 83.3 H 37.0-80.0 % Lymphocytes (%) (Auto) 6.4 L 10.0-50.0 % Monocytes (%) (Auto) 9.8 0.0-12.0 % Eosinophils (%) (Auto) 0.1 0.0-7.0 % Basophils (%) (Auto) 0.4 0.0-2.0 % Neutrophils # (Auto) 14.5 H 1.6-8.6 10 ^3/uL Lymphocytes # (Auto) 1.1 0.4-5.4 10 ^3/uL Monocytes # (Auto) 1.7 H 0-1.3 10 ^3/uL Eosinophils # (Auto) 0 0-0.8 10 ^3/uL Basophils # (Auto) 0.1 0-0.2 10 ^3/uL Nucleated Red Blood Cells 0.0 % Prothrombin Time 11.1 9.3-11.8 sec Prothrombin Time INR 1.05 0.9-1.15 Activated Partial Thromboplast Time 31.3 24.5-34.5 SEC Sodium Level 138 136-145 mmol/L Potassium Level 3.5 3.5-5.1 mmol/L Chloride Level 103 98-107 mmol/L Carbon Dioxide Level 25 20-31 mmol/L Anion Gap 10 5-15 Blood Urea Nitrogen 11 9-23 mg/dL Creatinine 0.93 0.700-1.30 mg/dL Glomerular Filtration Rate Calc 93 >90 mL/min BUN/Creatinine Ratio 11.8 10.0-20.0 Serum Glucose 100 74-106 mg/dL Calcium Level 8.8 8.7-10.4 mg/dL Primary Diagnosis Sepsis likely due to intra-abdominal possible UTI Left lung nodule Plan Check blood culture, urine culture Start vanc and Zosyn for broad-spectrum antibiotics CT abdomen and pelvis and chest IV contrast to assess for lung mass and possible infection Check CRP, IV fluids Pain control Antiemetic held asa for possible biopsy. if not, restart. Full code Regular diet SCD for DVT prophylaxis for possible left lung nodule biopsy No GI prophylaxis needed Plan discussed with: Patient Problems List: (1) Generalized weakness (2) Projectile vomiting with nausea Status: Acute (3) Sepsis, unspecified organism Status: Acute Date of Service: Apr 02, 2025 Billing Provider: ISRRAEL CHOI MD Common Visit Codes: [id number] INP/OBS CARE (HIGH) ISRRAEL CHOI MD Apr 02, 2025 18:09
[2025-04-02 19:30] VITALS: PULSE 86; RESP 16; O2SAT 96
[2025-04-02] MEDS ORDERED: HYDROcodone-ACET 5/325MG TAB PO PRN (19:45)
[2025-04-02] MEDS ORDERED: DOCUSATE SOD 100 MG CAP PO PRN (19:45)
[2025-04-02] MEDS ORDERED: HYDROmorphone HCL 2 MG/ML VL/or syr IV PRN (19:45)
[2025-04-02] MEDS ORDERED: VANCOMYCIN PER PHARMACY 0 MG IV SCH (19:45)
[2025-04-02] MEDS ORDERED: ONDANSETRON HCL 4 MG/2 ML VIAL IV PRN (19:45)
[2025-04-02] MEDS ORDERED: ACETAMINOPHEN 325 MG TAB PO PRN (19:45)
[2025-04-02 19:46] LABS: Lactic Acid w/Reflex 2.4 mmol/L (0.4-2.0)
[2025-04-02] MEDS: IOHEXOL 300 MG/ML 100ML BOTTLE IJ ONE (21:40)
[2025-04-02] MEDS: SODIUM CHLOR 0.9% PF (SALINE LOCK) 10ML VIAL/SYR IV SCH (22:00)
[2025-04-02] MEDS ORDERED: CEFEPIME 1GM/ 50ML 50 ML IV SCH (22:00)
[2025-04-02] MEDS: MELATONIN 5 MG TAB PO SCH (22:08)
[2025-04-02] MEDS: PIPERACILLIN-TAZOB 3.375GM 100 ML IV SCH (22:08)
[2025-04-02 22:39] LABS: Urine Protein, UAD +1 (Negative)
--- NOTE | 2025-04-02 22:58 | DVH ---
COMPUTERIZED TOMOGRAPHY CHEST/ABDOMEN/PELVIS WITH INTRAVENOUS CONTRAST CLINICAL HISTORY: assess for lung mass and intra abdominal infection COMPARISON: XY CHEST PORTABLE on DOS: 04/02/25, CT CT ABD PELVIS W CON-ORAL IV on DOS: 07/19/24, XY C HEST PORTABLE on DOS: 07/18/24 TECHNIQUE: After the administration of intravenous contrast, axial CT images of the chest, abdomen an d pelvis were obtained. 2-D coronal and sagittal reformatted images were provided. Radiation optimiza tion: All CT scans at this facility use at least one of these dose optimization techniques: Automated exposure control mA and/or kV adjustment per patient size (includes targeted exams where dose is mat ched to clinical indication) or iterative reconstruction. CONTRAST ADMINISTERED: 100 mL omnipaque 300, intravenously. RADIATION DOSE: CTDI: 8.48 mGy DLP: 1310.45 mGy-cm FINDINGS: CHEST: There is minimal dependent atelectasis in bilateral lower lobes of the lungs. There is subtle patchy airspace disease in the posterior right upper lobe most consistent with focal pneumonitis. No signifi cant pulmonary nodule or mass is identified. There is no bronchiectasis or honeycombing. There is n o pleural effusion. There is no pneumothorax. The heart is at the upper limits of normal for size. T here is no thoracic aortic aneurysm. No pathologic lymphadenopathy is identified in the chest. ABDOMEN/PELVIS: The spleen is mildly enlarged at 13.6 cm in length. There are multiple peripherally enhancing masses in the liver, the largest measuring approximately 9.6 x 5.9 cm at the right liver dome, most suggesti ve of metastatic disease. Of the hepatic veins are patent. The portal vein is patent. No calcified g allstone is identified. The pancreas is grossly unremarkable. The adrenal glands are normal. The kidn eys enhance symmetrically. No solid renal mass is identified. There is a 2 mm nonobstructive calculus of the interpolar region of the left kidney. There is enhancement of the left ureter. There is mild stranding in the fat about the left ureter. There is a 2.3 cm simple cyst in the retroperitoneum infe rior to the left renal artery. The urinary bladder is thick walled, especially at the base. The pro state is significantly enlarged. There is asymmetric enhancement of the prostate concerning for possi ble mass. There is asymmetric circumferential thickening of the upper rectum most consistent with mal ignancy. There are several enlarged lymph nodes in the mesorectal fat, the largest measuring approxi mately 1.9 cm near the rectosigmoid junction. The appendix is normal. There is no pathologic distenti on of the small bowel. The colonic stool burden is moderate. No acute osseous abnormality is identif ied. IMPRESSION: Rectal mass consistent with malignancy. Perirectal lymphadenopathy. Multiple enhancing liver masses most consistent with metastatic disease. Enlarged prostate with asymmetric enhancement concerning for possible prostatic mass. Thickened urinary bladder, greatest at the base. Correlate clinically and with urinalysis for possib le cystitis versus chronic outlet obstruction. Nonobstructive left nephrolithiasis. Subtle patchy airspace disease in the posterior right upper lobe of the lung most consistent with foc al pneumonitis.
[2025-04-03] VITALS (7 sets, daily range): BP systolic 104–117; BP diastolic 59–70; PULSE 86–93; RESP 16–20; TEMP 97.6–100.2; O2SAT 95–97
[2025-04-03] MEDS: VANCOMYCIN 1GM/250ML KIT 250 ML IV ONE (05:00)
[2025-04-03] MEDS: VANCOMYCIN HCL 1000 MG VL ONE (05:21)
[2025-04-03 07:50] LABS: Hematocrit 30.9 % (41.0-53.0); Hemoglobin 9.7 g/dL (13.5-17.5); Mean Corpuscular Hemoglobin 22.9 pg (28.0-32.0); Mean Corpuscular Volume 72.8 fL (80.0-100.0); Nucleated Red Blood Cells % 0.2 %
[2025-04-03 07:59] LABS: Albumin 3.5 g/dL (3.2-4.8); Anion Gap 11 (5-15); BUN/Creatinine Ratio 7.8 (10.0-20.0); Carbon Dioxide 22 mmol/L (20-31); Chloride 106 mmol/L (98-107); Glucose 97 mg/dL (74-106); Potassium 3.7 mmol/L (3.5-5.1); Sodium 139 mmol/L (136-145); Total Protein 5.9 g/dL (5.7-8.2)
[2025-04-03 08:00] LABS: Bilirubin, Total 0.5 mg/dL (0.2-1.0)
[2025-04-03 08:19] LABS: Alanine Aminotransferase < 9 U/L (7-40); Alkaline Phosphatase 141 U/L (46-116); Blood Urea Nitrogen 6 mg/dL (9-23); Calcium 8.6 mg/dL (8.7-10.4)
[2025-04-03] MEDS: PIPERACILLIN-TAZOB 3.375GM 100 ML IV SCH (09:05)
[2025-04-03] MEDS: SERTRALINE HCL 50 MG TAB PO SCH (10:18)
[2025-04-03] MEDS: MULTIPLE VITAMIN TAB PO SCH (10:18)
[2025-04-03] MEDS: ATORVASTATIN 20 MG TAB PO SCH (10:18)
[2025-04-03] MEDS: FERROUS SULFATE 325mg EC TAB PO SCH (10:19)
--- NOTE | 2025-04-03 13:09 | DVHPN2 ---
Changes from previous H/P or p: No Changes Objective Vitals Vital Signs Date Time Temp Pulse Resp B/P (MAP) Pulse Ox O2 Delivery O2 Flow Rate FiO2 04/03/25 07:43 87 18 96 Room Air* 0 21 04/03/25 05:00 98.1 104/66 (79) 98.1 Intake/Output Intake and Output 04/03/25 07:00 Intake Total 2250 ml Balance 2250 ml Intake IV Total 2250 ml Medications Current Medications Medications Dose Ordered Sig/Cynthia Route Start Time Stop Time Status Last Admin Dose Admin Vancomycin HCl 0 ml @ 0 mls/hr UD IV 04/02/25 19:45 Sodium Chloride 10 ml Q8HR IV 04/02/25 22:00 04/03/25 05:52 10 ML Docusate Sodium 100 mg BIDPRN PRN PO 04/02/25 19:45 Acetaminophen 650 mg Q6HP PRN PO 04/02/25 19:45 Acetaminophen/ Hydrocodone Bitart 1 tab Q4HP PRN PO 04/02/25 19:45 Hydromorphone HCl 0.5 mg Q4HP PRN IV 04/02/25 19:45 Ondansetron HCl 4 mg Q4HP PRN IV 04/02/25 19:45 Multivitamins 1 tab DAILY PO 04/03/25 10:00 04/03/25 10:18 1 TAB Sertraline HCl 50 mg DAILY PO 04/03/25 10:00 04/03/25 10:18 50 MG Tamsulosin HCl 0.8 mg QPM PO 04/03/25 18:00 Atorvastatin Calcium 40 mg DAILY PO 04/03/25 10:00 04/03/25 10:18 40 MG Cholecalciferol 5,000 unit DAILY PO 04/03/25 10:00 Ferrous Sulfate 325 mg DAILY PO 04/03/25 10:00 04/03/25 10:19 325 MG Melatonin 5 mg HS PO 04/02/25 22:00 04/02/25 22:08 5 MG Piperacillin Sod/ Tazobactam Sod 100 ml @ 25 mls/hr Q8HR@0000,0800,1600 IV 04/03/25 08:00 04/03/25 09:05 25 MLS/HR Vancomycin HCl 250 ml @ 250 mls/hr Q12H IV 04/03/25 15:00 Laboratory Results Laboratory Tests 04/03/25 06:19 Chemistry Test 04/02/25 14:36 04/03/25 06:19 Calcium Level 8.8 mg/dL (8.7-10.4) 8.6 mg/dL (8.7-10.4) L Albumin 3.5 g/dL (3.2-4.8) Total Protein 5.9 g/dL (5.7-8.2) Coagulation Test 04/02/25 14:36 Prothrombin Time 11.1 sec (9.3-11.8) Prothrombin Time INR 1.05 (0.9-1.15) Activated Partial Thromboplast Time 31.3 SEC (24.5-34.5) LFT Test 04/03/25 06:19 Alanine Aminotransferase (ALT) < 9 U/L (7-40) Alkaline Phosphatase 141 U/L (46-116) H Aspartate Amino Transferase (AST) 20 U/L (13-40) Total Bilirubin 0.5 mg/dL (0.2-1.0) Urinalysis Test 04/02/25 21:59 Urine Color Light orange (Yellow) Urine Clarity Turbid (Clear) H Urine pH 5.5 (5.0-9.0) Urine Specific [place] 1.019 (1.001-1.035) Urine Protein +1 (Negative) Urine Ketones Negative (Negative) Urine Blood Negative /uL (Negative) Urine Nitrite Negative (Negative) Urine Bilirubin Negative (Negative) Urine Urobilinogen +1 mg/dL (Negative) Urine Leukocyte Esterase 3+ /uL (Negative) Urine Glucose Normal mg/dL (Normal) Microbiology Microbiology Date/Time Source Procedure Growth Status 04/02/25 21:05 Voided Urine Urine Culture - Preliminary Resulted Labs and/or images reviewed: Labs reviewed by me, Image(s) reviewed by me Assessment/Plan Assessment/Plan Sepsis secondary to urinary tract infection: Blood cultures urine cultures continue Zosyn vancomycin Acute metabolic encephalopathy Hypertension Hypercholesterolemia Depression 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
[2025-04-03] MEDS: CHOLECALCIFEROL (VITD3) 1,000UNIT=25mCg TAB PO SCH (13:52)
[2025-04-03] MEDS: VANCOMYCIN 1GM/250ML KIT 250 ML IV SCH (14:54)
[2025-04-03] MEDS: TAMSULOSIN HYDROCHLORIDE 0.4 MG CAP PO SCH (17:59)
[2025-04-04] VITALS (8 sets, daily range): BP systolic 103–118; BP diastolic 60–72; PULSE 77–89; RESP 16–20; TEMP 97.8–99.4; O2SAT 94–98
[2025-04-04 02:46] LABS: Albumin 3.2 g/dL (3.2-4.8); Alkaline Phosphatase 109 U/L (46-116); Anion Gap 11 (5-15); BUN/Creatinine Ratio 9.1 (10.0-20.0); Bilirubin, Total 0.4 mg/dL (0.2-1.0); Carbon Dioxide 24 mmol/L (20-31); Chloride 106 mmol/L (98-107); Glucose 99 mg/dL (74-106); Potassium 3.6 mmol/L (3.5-5.1); Sodium 141 mmol/L (136-145)
[2025-04-04 02:47] LABS: Alanine Aminotransferase < 9 U/L (7-40); Blood Urea Nitrogen 8 mg/dL (9-23); Calcium 8.4 mg/dL (8.7-10.4); Total Protein 5.6 g/dL (5.7-8.2)
[2025-04-04 05:51] LABS: Hematocrit 30.4 % (41.0-53.0); Hemoglobin 9.5 g/dL (13.5-17.5); Mean Corpuscular Hemoglobin 23.0 pg (28.0-32.0); Mean Corpuscular Volume 73.6 fL (80.0-100.0); Nucleated Red Blood Cells % 0.1 %
--- NOTE | 2025-04-04 11:36 | DVHPN2 ---
Reviewed: Care Plan, H&P, Labs, Medications, Previous Orders, Radiology Changes from previous H/P or p: No Changes Objective Vitals Vital Signs Date Time Temp Pulse Resp B/P (MAP) Pulse Ox O2 Delivery O2 Flow Rate FiO2 04/04/25 09:00 98.6 77 20 118/72 (87) 94 98.6 04/04/25 08:05 Room Air* 0 21 Intake/Output Intake and Output 04/04/25 07:00 Intake Total 1070 ml Balance 1070 ml Intake Oral 620 ml IV Total 450 ml # Voids 4 # Bowel Movements 2 Medications Current Medications Medications Dose Ordered Sig/Cynthia Route Start Time Stop Time Status Last Admin Dose Admin Vancomycin HCl 0 ml @ 0 mls/hr UD IV 04/02/25 19:45 Sodium Chloride 10 ml Q8HR IV 04/02/25 22:00 04/04/25 05:44 10 ML Docusate Sodium 100 mg BIDPRN PRN PO 04/02/25 19:45 Acetaminophen 650 mg Q6HP PRN PO 04/02/25 19:45 Acetaminophen/ Hydrocodone Bitart 1 tab Q4HP PRN PO 04/02/25 19:45 Hydromorphone HCl 0.5 mg Q4HP PRN IV 04/02/25 19:45 Ondansetron HCl 4 mg Q4HP PRN IV 04/02/25 19:45 Multivitamins 1 tab DAILY PO 04/03/25 10:00 04/04/25 08:44 1 TAB Sertraline HCl 50 mg DAILY PO 04/03/25 10:00 04/04/25 08:44 50 MG Tamsulosin HCl 0.8 mg QPM PO 04/03/25 18:00 04/03/25 17:59 0.8 MG Atorvastatin Calcium 40 mg DAILY PO 04/03/25 10:00 04/04/25 08:44 40 MG Cholecalciferol 5,000 unit DAILY PO 04/03/25 10:00 04/04/25 08:43 5,000 UNIT Ferrous Sulfate 325 mg DAILY PO 04/03/25 10:00 04/04/25 08:44 325 MG Melatonin 5 mg HS PO 04/02/25 22:00 04/02/25 22:08 5 MG Piperacillin Sod/ Tazobactam Sod 100 ml @ 25 mls/hr Q8HR@0000,0800,1600 IV 04/03/25 08:00 04/04/25 08:35 25 MLS/HR Vancomycin HCl 250 ml @ 250 mls/hr Q12H IV 04/03/25 15:00 04/04/25 02:54 250 MLS/HR Laboratory Results Laboratory Tests 04/04/25 01:47 Chemistry Test 04/04/25 01:47 Albumin 3.2 g/dL (3.2-4.8) Calcium Level 8.4 mg/dL (8.7-10.4) L Total Protein 5.6 g/dL (5.7-8.2) L LFT Test 04/04/25 01:47 Alanine Aminotransferase (ALT) < 9 U/L (7-40) Alkaline Phosphatase 109 U/L (46-116) Aspartate Amino Transferase (AST) 19 U/L (13-40) Total Bilirubin 0.4 mg/dL (0.2-1.0) Urinalysis Test 04/02/25 21:59 Urine Color Light orange (Yellow) Urine Clarity Turbid (Clear) H Urine pH 5.5 (5.0-9.0) Urine Specific [place] 1.019 (1.001-1.035) Urine Protein +1 (Negative) Urine Ketones Negative (Negative) Urine Blood Negative /uL (Negative) Urine Nitrite Negative (Negative) Urine Bilirubin Negative (Negative) Urine Urobilinogen +1 mg/dL (Negative) Urine Leukocyte Esterase 3+ /uL (Negative) Urine Glucose Normal mg/dL (Normal) Microbiology Microbiology Date/Time Source Procedure Growth Status 04/02/25 21:05 Voided Urine Urine Culture - Preliminary Resulted 04/02/25 15:30 Blood Blood Culture - Preliminary NO GROWTH AFTER 24 HOURS OF INCUBATION. 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
[2025-04-05 01:09] VITALS: BP 118/77; PULSE 80; RESP 16; TEMP 98.1; O2SAT 93
[2025-04-05 05:11] VITALS: BP 113/68; PULSE 74; RESP 18; TEMP 97.8; O2SAT 96
[2025-04-05 06:30] LABS: Hemoglobin 9.5 g/dL (13.5-17.5)
[2025-04-05 06:33] LABS: Hematocrit 29.4 % (41.0-53.0); Mean Corpuscular Hemoglobin 23.0 pg (28.0-32.0); Mean Corpuscular Volume 71.5 fL (80.0-100.0); Nucleated Red Blood Cells % 0.1 %
[2025-04-05 06:43] LABS: Albumin 3.4 g/dL (3.2-4.8); Alkaline Phosphatase 99 U/L (46-116); Anion Gap 10 (5-15); BUN/Creatinine Ratio 8.5 (10.0-20.0); Carbon Dioxide 25 mmol/L (20-31); Chloride 107 mmol/L (98-107); Glucose 102 mg/dL (74-106); Potassium 3.6 mmol/L (3.5-5.1); Sodium 142 mmol/L (136-145)
[2025-04-05 06:45] LABS: Alanine Aminotransferase < 9 U/L (7-40); Bilirubin, Total 0.3 mg/dL (0.2-1.0); Blood Urea Nitrogen 7 mg/dL (9-23); Calcium 8.6 mg/dL (8.7-10.4); Total Protein 5.6 g/dL (5.7-8.2)
[2025-04-05 09:00] VITALS: BP 103/65; PULSE 84; RESP 18; TEMP 97.6; O2SAT 95
--- NOTE | 2025-04-05 12:03 | DVHPN2 ---
Reviewed: Care Plan, H&P, Labs, Medications, Previous Orders, Radiology Changes from previous H/P or p: No Changes Objective Vitals Vital Signs Date Time Temp Pulse Resp B/P (MAP) Pulse Ox O2 Delivery O2 Flow Rate FiO2 04/05/25 09:00 97.6 84 18 103/65 (78) 95 97.6 04/05/25 08:05 Room Air* 0 21 Intake/Output Intake and Output 04/05/25 07:00 Intake Total 2126 ml Balance 2126 ml Intake Oral 2026 ml IV Total 100 ml # Voids 9 # Bowel Movements 1 Medications Current Medications Medications Dose Ordered Sig/Cynthia Route Start Time Stop Time Status Last Admin Dose Admin Vancomycin HCl 0 ml @ 0 mls/hr UD IV 04/02/25 19:45 Sodium Chloride 10 ml Q8HR IV 04/02/25 22:00 04/05/25 05:05 10 ML Docusate Sodium 100 mg BIDPRN PRN PO 04/02/25 19:45 Acetaminophen 650 mg Q6HP PRN PO 04/02/25 19:45 Acetaminophen/ Hydrocodone Bitart 1 tab Q4HP PRN PO 04/02/25 19:45 Hydromorphone HCl 0.5 mg Q4HP PRN IV 04/02/25 19:45 Ondansetron HCl 4 mg Q4HP PRN IV 04/02/25 19:45 Multivitamins 1 tab DAILY PO 04/03/25 10:00 04/05/25 08:47 1 TAB Sertraline HCl 50 mg DAILY PO 04/03/25 10:00 04/05/25 08:47 50 MG Tamsulosin HCl 0.8 mg QPM PO 04/03/25 18:00 04/04/25 17:00 0.8 MG Atorvastatin Calcium 40 mg DAILY PO 04/03/25 10:00 04/05/25 08:48 40 MG Cholecalciferol 5,000 unit DAILY PO 04/03/25 10:00 04/05/25 08:48 5,000 UNIT Ferrous Sulfate 325 mg DAILY PO 04/03/25 10:00 04/05/25 08:47 325 MG Melatonin 5 mg HS PO 04/02/25 22:00 04/04/25 21:51 5 MG Piperacillin Sod/ Tazobactam Sod 100 ml @ 25 mls/hr Q8HR@0000,0800,1600 IV 04/03/25 08:00 04/05/25 08:45 25 MLS/HR Vancomycin HCl 250 ml @ 250 mls/hr Q12H IV 04/03/25 15:00 04/05/25 05:05 250 MLS/HR Laboratory Results Laboratory Tests 04/05/25 05:10 Chemistry Test 04/05/25 05:10 Albumin 3.4 g/dL (3.2-4.8) Calcium Level 8.6 mg/dL (8.7-10.4) L Total Protein 5.6 g/dL (5.7-8.2) L LFT Test 04/05/25 05:10 Alanine Aminotransferase (ALT) < 9 U/L (7-40) Alkaline Phosphatase 99 U/L (46-116) Aspartate Amino Transferase (AST) 21 U/L (13-40) Total Bilirubin 0.3 mg/dL (0.2-1.0) Urinalysis Test 04/02/25 21:59 Urine Color Light orange (Yellow) Urine Clarity Turbid (Clear) H Urine pH 5.5 (5.0-9.0) Urine Specific [place] 1.019 (1.001-1.035) Urine Protein +1 (Negative) Urine Ketones Negative (Negative) Urine Blood Negative /uL (Negative) Urine Nitrite Negative (Negative) Urine Bilirubin Negative (Negative) Urine Urobilinogen +1 mg/dL (Negative) Urine Leukocyte Esterase 3+ /uL (Negative) Urine Glucose Normal mg/dL (Normal) Microbiology Microbiology Date/Time Source Procedure Growth Status 04/02/25 21:05 Voided Urine Urine Culture - Preliminary Resulted 04/02/25 15:30 Blood Blood Culture - Preliminary NO GROWTH AFTER 48 HOURS OF INCUBATION. 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
[2025-04-05 13:00] VITALS: BP 108/74; PULSE 95; RESP 18; TEMP 97.8; O2SAT 97
--- NOTE | 2025-04-05 14:35 | ECG ---
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
[2025-04-05 17:09] VITALS: BP 122/74; PULSE 79; TEMP 98.1; O2SAT 98
[2025-04-05 20:00] VITALS: BP 110/61; PULSE 87; RESP 16; TEMP 97.6; O2SAT 97
[2025-04-06 01:14] VITALS: BP 109/71; PULSE 78; TEMP 97.6; O2SAT 98
[2025-04-06 05:07] VITALS: BP 106/66; PULSE 74; RESP 17; TEMP 97.6; O2SAT 97
[2025-04-06 06:32] LABS: Nucleated Red Blood Cells % 0.1 %
[2025-04-06 06:37] LABS: Hematocrit 29.4 % (41.0-53.0); Hemoglobin 9.6 g/dL (13.5-17.5); Mean Corpuscular Hemoglobin 23.5 pg (28.0-32.0); Mean Corpuscular Volume 72.2 fL (80.0-100.0)
[2025-04-06 06:56] LABS: Alkaline Phosphatase 88 U/L (46-116); Anion Gap 10 (5-15); BUN/Creatinine Ratio 10.1 (10.0-20.0); Carbon Dioxide 24 mmol/L (20-31); Chloride 106 mmol/L (98-107); Glucose 101 mg/dL (74-106); Potassium 3.5 mmol/L (3.5-5.1); Sodium 140 mmol/L (136-145)
[2025-04-06 06:57] LABS: Albumin 3.3 g/dL (3.2-4.8)
[2025-04-06 06:58] LABS: Blood Urea Nitrogen 8 mg/dL (9-23)
[2025-04-06 06:59] LABS: Alanine Aminotransferase < 9 U/L (7-40); Bilirubin, Total 0.2 mg/dL (0.2-1.0); Calcium 8.3 mg/dL (8.7-10.4); Total Protein 5.6 g/dL (5.7-8.2)
[2025-04-06 09:00] VITALS: BP 107/70; PULSE 83; RESP 18; TEMP 97.8; O2SAT 94
--- NOTE | 2025-04-06 11:24 | DVHDS2 ---
Discharge Summary Date of Admission Apr 02, 2025 at 19:35 Date of Discharge: Apr 06, 2025 Admitting Diagnosis Altered mental status and generalized weakness Wounds: none Labs/Diagnostic Data: Laboratory Results Test 04/06/25 04:59 04/05/25 14:09 04/03/25 00:27 04/02/25 21:59 White Blood Count 8.2 10^3/uL (4.4-10.8) Red Blood Count 4.07 10^6/uL (4.5-5.90) Hemoglobin 9.6 g/dL (13.5-17.5) Hematocrit 29.4 % (41.0-53.0) Mean Corpuscular Volume 72.2 fL (80.0-100.0) Mean Corpuscular Hemoglobin 23.5 pg (28.0-32.0) Mean Corpuscular Hemoglobin Concent 32.5 g/dL (32.0-36.0) Red Cell Distribution Width 17.9 % (11.8-14.3) Platelet Count 459 10^3/uL (140-450) Mean Platelet Volume 7.2 fL (6.9-10.8) Neutrophils (%) (Auto) 71.7 % (37.0-80.0) Lymphocytes (%) (Auto) 15.8 % (10.0-50.0) Monocytes (%) (Auto) 10.6 % (0.0-12.0) Eosinophils (%) (Auto) 1.4 % (0.0-7.0) Basophils (%) (Auto) 0.5 % (0.0-2.0) Neutrophils # (Auto) 5.8 10 ^3/uL (1.6-8.6) Lymphocytes # (Auto) 1.3 10 ^3/uL (0.4-5.4) Monocytes # (Auto) 0.9 10 ^3/uL (0-1.3) Eosinophils # (Auto) 0.1 10 ^3/uL (0-0.8) Basophils # (Auto) 0 10 ^3/uL (0-0.2) Nucleated Red Blood Cells 0.1 % Sodium Level 140 mmol/L (136-145) Potassium Level 3.5 mmol/L (3.5-5.1) Chloride Level 106 mmol/L (98-107) Carbon Dioxide Level 24 mmol/L (20-31) Anion Gap 10 (5-15) Blood Urea Nitrogen 8 mg/dL (9-23) Creatinine 0.79 mg/dL (0.700-1.30) Glomerular Filtration Rate Calc 101 mL/min (>90) BUN/Creatinine Ratio 10.1 (10.0-20.0) Serum Glucose 101 mg/dL (74-106) Calcium Level 8.3 mg/dL (8.7-10.4) Total Bilirubin 0.2 mg/dL (0.2-1.0) Aspartate Amino Transferase (AST) 23 U/L (13-40) Alanine Aminotransferase (ALT) < 9 U/L (7-40) Alkaline Phosphatase 88 U/L (46-116) Total Protein 5.6 g/dL (5.7-8.2) Albumin 3.3 g/dL (3.2-4.8) Vancomycin Level Trough 18.8 ug/mL (5-10) Lactic Acid Level 0.7 mmol/L (0.4-2.0) Urine Color Light orange (Yellow) Urine Clarity Turbid (Clear) Urine pH 5.5 (5.0-9.0) Urine Specific [place] 1.019 (1.001-1.035) Urine Protein +1 (Negative) Urine Ketones Negative (Negative) Urine Blood Negative /uL (Negative) Urine Nitrite Negative (Negative) Urine Bilirubin Negative (Negative) Urine Urobilinogen +1 mg/dL (Negative) Urine Leukocyte Esterase 3+ /uL (Negative) Urine Glucose Normal mg/dL (Normal) Test 04/02/25 14:36 Prothrombin Time 11.1 sec (9.3-11.8) Prothrombin Time INR 1.05 (0.9-1.15) Activated Partial Thromboplast Time 31.3 SEC (24.5-34.5) C-Reactive Protein High Sensitivity 12.54 mg/dL (<1.0) Other Laboratory Tests 04/06/25 04:59 Brief Hx & Hospital Course: 1-year-old male with a history of hypertension hypercholesterolemia depression 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 Blood cultures came negative urine cultures grew Gram-negative rods. At the time of discharge patient is alert awake ambulatory afebrile stable vital signs [facility] back [facility] on p.o. 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 Moderate malnutrition Discharge Disposition: Nursing Home Facility Discharge Instruct/Medications Diet: Regular Activity: Bed rest Follow Up/Referral: Follow up with the [facility] Dr Medications: see list Scheduled Aspirin (Aspirin Adult Low Dose), 1 TAB PO DAILY, (Reported) Atorvastatin Calcium (Atorvastatin Calcium), 1 TAB PO DAILY, (Reported) Cholecalciferol (Vitamin D3), 1 CAP PO DAILY, (Reported) Ferrous Sulfate (Ferosul), 1 TAB PO DAILY, (Reported) Loratadine (Claritin Tablet), 1 TAB PO DAILY, (Reported) Melatonin (Melatonin), 5 MG PO HS, (Reported) Multiple Vitamin (One-Daily Multi-Vitamin), 1 TAB PO DAILY, (Reported) Sertraline HCl (Sertraline HCl), 1 TAB PO DAILY, (Reported) Tamsulosin Hcl (Tamsulosin Hcl), 2 CAP PO DAILY, (Reported) Scheduled PRN Ondansetron HCl (Ondansetron Hydrochloride), 1 TAB PO Q8HPRN PRN for nausea/vomiting, (Reported) 49 (Time taken for discharge summary 49 minutes) Discharge Statement: "Patient was advised to return to the ER or call 911 if any headaches, dizziness, shortness of breath, chest pain, abdominal pain, bleeding, fevers, or worsening of medical condition. Patient was counseled about treatment plan, medications, possible side effects, patientverbalized understanding. All questions were answered to the best of my ability. 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
[2025-04-06 13:00] VITALS: BP 118/69; PULSE 91; RESP 18; TEMP 97.5; O2SAT 98
[2025-04-06 14:26] LABS: COVID19 ANTIGEN SOFIA FIA NEGATIVE (NEGATIVE)
[2025-04-06 17:03] VITALS: BP 112/75; PULSE 70; RESP 16; TEMP 97.8; O2SAT 98
== END 2025-04-06 17:15 | DRG 871 ==
LOC: EDBD 14:02 → ER 14:05 → OVERFLOW 19:35 → WEST WING 04-03 11:17
PROVIDERS: ADMIT Family Medicine; ATTEND Family Medicine
DX: A41.9 Sepsis, unspecified organism (principal); G93.41 Metabolic encephalopathy; E44.0 Moderate protein-calorie malnutrition; N39.0 Urinary tract infection, site not specified; Z68.20 Body mass index [BMI] 20.0-20.9, adult; Z20.822 Contact with and (suspected) exposure to COVID-19; F32.A Depression, unspecified; I10 Essential (primary) hypertension; E78.00 Pure hypercholesterolemia, unspecified; R91.1 Solitary pulmonary nodule; Z85.038 Personal history of other malignant neoplasm of large intestine; Z85.05 Personal history of malignant neoplasm of liver; Z85.118 Personal history of other malignant neoplasm of bronchus and lung
CPT/HCPCS: 36415; 71045; 71275; 74178; 80048; 80053; 80202; 81003; 83605; 85025; 85610; 85730; 86141; 87040; 87086; 87088; 87186; 87426; 93005; 96365; G0378; J2543

== ENCOUNTER 2025-07-14 14:42 | Inpatient (IN) | payer MEDICARE, MEDICAID ==
[~2025-07-14] VITALS: Ht 185.4 cm; Wt 146.0 kg
--- NOTE | 2025-07-14 15:44 | ED.PDOC ---
GI ASSESSMENT HPI Comments Patient is a 60-year-old male with past medical history of colon cancer, moderate protein calorie malnutrition, dyslipidemia, hypertension, BPH, cachexia, mild intellectual disabilities, GERD, lung nodule, rectal mass, recurrent falls and major depression, was brought in by EMS due to abdominal pain. Patient is AO x1, however, localizes pain to left lower quadrant. Unable to obtain further history as patient altered. Per paperwork from nursing [facility], patient was sent for generalized weakness, chronic abdominal pain and a cough. Lab work as well as CT abdomen pelvis was ordered for the patient. Patient became septic around 4:11 p.m. noted to have a white count of 17k. Patient was started on IV LR and cefepime. Chief Complaint: Abdominal Pain Time Seen by MD: 15:21 Allergies: Coded Allergies: NO KNOWN ALLERGIES (Unverified , 07/18/24) Home Meds Reported Medications Melatonin (MELATONIN) 10 Mg Cap, 5 MG PO HS, CAP 07/20/24 Loratadine (CLARITIN TABLET) 10 Mg Tb, 1 TAB PO DAILY 07/20/24 Ferrous Sulfate (Ferosul) 325 Mg Tab, 1 TAB PO DAILY 07/20/24 Aspirin (Aspirin Adult Low Dose) 81 Mg Tab, 1 TAB PO DAILY 07/20/24 Atorvastatin Calcium (ATORVASTATIN CALCIUM) 40 Mg Tab, 1 TAB PO DAILY 07/20/24 Tamsulosin Hcl (Tamsulosin Hcl) 0.4 Mg Cap, 2 CAP PO DAILY 07/20/24 Multiple Vitamin (One-Daily Multi-Vitamin) 1 Tab Tab, 1 TAB PO DAILY 07/20/24 Cholecalciferol (VITAMIN D3) 5,000 Unit Cap, 1 CAP PO DAILY 07/20/24 Sertraline HCl (Sertraline HCl) 50 Mg Tab, 1 TAB PO DAILY 07/20/24 Ondansetron HCl (Ondansetron Hydrochloride) 4 Mg Tab, 1 TAB PO Q8HPRN PRN for nausea/vomiting 07/20/24 Mode of Arrival: EMS Past Medical History PAST MEDICAL HISTORY: Depression, High Lipids, HTN Past Medical History (Contd): colon cancer, moderate protein calorie malnutrition, dyslipidemia, hypertension, BPH, cachexia, mild intellectual disabilities, GERD, lung nodule, rectal mass, recurrent falls and major depression Surgical History: Unknown Family History Family History: Unknown Social History Smoker: Non-Smoker Alcohol: Denies ETOH Use Drugs: Denies Drug Use Lives In: [facility] Unable to Obtain due to: Altered Mental Status Physical Exam General Appearance: Cachectic, Mild Distress, Thin HEENT: Normal ENT Inspection, PERRL/EOMI Neck: Full Range of Motion, Non-Tender, Normal Respiratory: Decreased Breath Sounds Cardiovascular: No Murmur, No Gallop, Tachycardia Breast Exam: Deferred Gastrointestinal: Diffuse, LLQ, Tenderness Genitalia: Deferred Pelvic: Deferred Rectal: Rectal Exam not done Extremities: No calf tenderness, No pedal edema Neurologic: Disoriented Cerebellar Function: NOT DONE Reflexes: NOT DONE Skin: Dry, Normal Color Peripheral Pulses: 2+ dorsalis pedis (R), 2+ dorsalis pedis (L) Lymphatic: NOT DONE Was a procedure done? Was a procedure done?: No GI differential Dx Differential Diagnosis: Bowel Obstruction, Constipation, Gastroenteritis, Impaction, Ischemic Bowel, Mass Other Differential Diagnosis Sepsis Community-acquired pneumonia X-Ray, Labs, Meds, VS Vital Signs Date Time Temp Pulse Resp B/P (MAP) Pulse Ox O2 Delivery O2 Flow Rate FiO2 07/14/25 14:42 99.2 101 18 130/52 96 99.2 Lab Test 07/14/25 18:07 07/14/25 15:49 07/14/25 15:40 Range/Units Lactic Acid Level 5.0 *H 2.5 *H 0.4-2.0 mmol/L White Blood Count 17.3 H 4.4-10.8 10^3/uL Red Blood Count 4.67 4.5-5.90 10^6/uL Hemoglobin 10.6 L 13.5-17.5 g/dL Hematocrit 34.7 L 41.0-53.0 % Mean Corpuscular Volume 74.2 L 80.0-100.0 fL Mean Corpuscular Hemoglobin 22.6 L 28.0-32.0 pg Mean Corpuscular Hemoglobin Concent 30.5 L 32.0-36.0 g/dL Red Cell Distribution Width 19.1 H 11.8-14.3 % Platelet Count 573 H 140-450 10^3/uL Mean Platelet Volume 6.9 6.9-10.8 fL Neutrophils (%) (Auto) 82.5 H 37.0-80.0 % Lymphocytes (%) (Auto) 8.2 L 10.0-50.0 % Monocytes (%) (Auto) 8.8 0.0-12.0 % Eosinophils (%) (Auto) 0.3 0.0-7.0 % Basophils (%) (Auto) 0.2 0.0-2.0 % Neutrophils # (Auto) 14.3 H 1.6-8.6 10 ^3/uL Lymphocytes # (Auto) 1.4 0.4-5.4 10 ^3/uL Monocytes # (Auto) 1.5 H 0-1.3 10 ^3/uL Eosinophils # (Auto) 0 0-0.8 10 ^3/uL Basophils # (Auto) 0 0-0.2 10 ^3/uL Nucleated Red Blood Cells 0.2 % Prothrombin Time 11.2 9.3-11.8 sec Prothrombin Time INR 1.06 0.9-1.15 Activated Partial Thromboplast Time 29.3 24.5-34.5 SEC Sodium Level 138 136-145 mmol/L Potassium Level 4.9 3.5-5.1 mmol/L Chloride Level 102 98-107 mmol/L Carbon Dioxide Level 25 20-31 mmol/L Anion Gap 11 5-15 Blood Urea Nitrogen 17 9-23 mg/dL Creatinine 0.65 L 0.700-1.30 mg/dL Glomerular Filtration Rate Calc 107 >90 mL/min BUN/Creatinine Ratio 26.2 H 10.0-20.0 Serum Glucose 114 H 74-106 mg/dL Calcium Level 8.2 L 8.7-10.4 mg/dL Total Bilirubin 0.4 0.2-1.0 mg/dL Direct Bilirubin 0.2 <0.3 mg/dL Aspartate Amino Transferase (AST) 81 H 13-40 U/L Alanine Aminotransferase (ALT) 42 H 7-40 U/L Alkaline Phosphatase 552 H 46-116 U/L Troponin I High Sensitivity 27 </=54 ng/L Total Protein 6.5 5.7-8.2 g/dL Albumin 3.2 3.2-4.8 g/dL Lipase 22 12-53 U/L Microbiology Date/Time Source Procedure Growth Status 07/14/25 15:49 Blood Blood Culture - Preliminary NO GROWTH AFTER 24 HOURS OF INCUBATION. Resulted 07/14/25 15:40 Blood Blood Culture - Preliminary NO GROWTH AFTER 24 HOURS OF INCUBATION. Resulted Time of 1ST Reevaluation: 16:45 Reevaluation 1ST: Unchanged Patient Education/Counseling: Diagnosis, Treatment, Prognosis, Need For Follow Up, Other (Patient AO x1) Family Education/Counseling: No Family Present SEPSIS Sepsis Screen Date sepsis recognized/suspect: Jul 14, 2025 Time Sepsis recognized/suspect: 1442 Recent Procedure: No On Antibiotic Therapy: No Respiratory Rate >20: No Heart Rate >90: Yes Temp<36 C (96.8 F) or >38.3 C: No SBP <90 or MAP <65 mmHG: No New Acute Mental Status Change: No Is the patient on CPAP, BIPAP,: No Physician Orders Blood Culture (07/14/25 15:32) Chest Portable (07/14/25 15:32) Notify Md If Map <65 Or Bp<90 (07/14/25 16:11) If Map<65 Start Vasopressor (07/14/25 16:11) Sepsis Reassesment After Fluid (07/14/25 17:11) Ct Ab Pel With Iv Con Only (07/14/25 15:32) Vital Signs Date Time Temp Pulse Resp B/P (MAP) Pulse Ox O2 Delivery O2 Flow Rate FiO2 07/14/25 14:42 99.2 101 18 130/52 96 99.2 Laboratory Tests Test 07/14/25 15:40 07/14/25 15:49 07/14/25 18:07 White Blood Count 17.3 10^3/uL (4.4-10.8) H Lactic Acid Level 2.5 mmol/L (0.4-2.0) *H 5.0 mmol/L (0.4-2.0) *H Departure 1 Departure Time of Disposition: 16:45 Impression: Primary Impression: Urinary tract infection Additional Impressions: Diverticulitis of intestine Cholecystitis Non-specific colitis Acute pancreatitis Disposition: 09 ADMITTED INPATIENT Condition: Serious Comments Patient was noted to be AO x1, with leukocytosis as well as lactic acidosis with UA indicative of a UTI, patient was admitted to the hospital for further evaluation and management. Critical Care Note Critical Care Time?: No Stability Stability form required: SHERON Walden RESIDENT Jul 14, 2025 15:44
[2025-07-14 16:03] LABS: Nucleated Red Blood Cells % 0.2 %
[2025-07-14 16:05] LABS: Hematocrit 34.7 % (41.0-53.0); Hemoglobin 10.6 g/dL (13.5-17.5); Mean Corpuscular Hemoglobin 22.6 pg (28.0-32.0); Mean Corpuscular Volume 74.2 fL (80.0-100.0)
[2025-07-14 16:12] LABS: Chloride 102 mmol/L (98-107); Potassium 4.9 mmol/L (3.5-5.1); Sodium 138 mmol/L (136-145)
[2025-07-14 16:13] LABS: Anion Gap 11 (5-15); Carbon Dioxide 25 mmol/L (20-31)
[2025-07-14 16:17] LABS: Calcium 8.2 mg/dL (8.7-10.4)
[2025-07-14 16:18] LABS: BUN/Creatinine Ratio 26.2 (10.0-20.0); Blood Urea Nitrogen 17 mg/dL (9-23)
[2025-07-14 16:22] LABS: Glucose 114 mg/dL (74-106)
[2025-07-14 16:23] LABS: Lactic Acid w/Reflex 2.5 mmol/L (0.4-2.0)
[2025-07-14 17:06] LABS: INR 1.06 (0.9-1.15); Partial Thromboplastin Time 29.3 SEC (24.5-34.5); Prothrombin Time 11.2 sec (9.3-11.8)
--- NOTE | 2025-07-14 19:44 | DVH ---
EXAM: XY CHEST PORTABLE HISTORY: abdominal pain TECHNIQUE: 1 view of the chest COMPARISON: XY CHEST PORTABLE on DOS: 04/02/25 FINDINGS/IMPRESSION: LUNGS: No pleural effusion, consolidation, or pneumothorax. unchanged presumed calcific granuloma of the periphery of the left upper lobe. MEDIASTINUM: Unremarkable. BONES: No acute osseous abnormality. OTHER: None.
--- NOTE | 2025-07-14 20:10 | DVH ---
Exam: CT CT AB PEL WITH IV CON ONLY History: abdominal pain Comparison Study: CT CHST AB PEL W WO CON-IV ONLY on DOS: 04/02/25 Exam Date: 07/14/2025 07:16 PM Radiation Dose Information: CT Dose: CTDI volume is 6.53 mGy. Dose-length product is 391.0 mGy*cm TECHNIQUE: During the uneventful, intravenous administration of contrast material, multislice data acquisition was obtained through the abdomen and pelvis. The data set was subsequently reconstructed into axial images. Images were reviewed on a work station using a combination of axial and multiplanar using a variety of window levels and settings. Findings: Motion degraded study. Lower chest: Clear. Liver: Numerous enlarged hepatic masses, new/ significantly increased in size from prior study. For example, there is 5.6 cm artifact with mass, new from prior. 6.1 cm posterior right hepatic lobe mass measured approximately 2.7 cm previously. Biliary system: Unremarkable Spleen: Unremarkable Pancreas: Unremarkable. Adrenals: Unremarkable. Kidneys and ureters: Normal renal enhancement. No hydronephrosis. Nonobstructing left renal calculi. Bowel: Overall increasing size irregular rectal mass, which appears more bulky but difficult to measure due to irregular shape. Diffuse stool burden of the upstream colon. No definite obstruction. Bladder: Unremarkable Reproductive organs: No abnormal mass. Lymph nodes: Multiple enlarged perirectal lymph nodes, largest measuring 2.8 cm, previously 2.3 cm. Peritoneum: Unremarkable Vessels: Diminutive appearance of the intrahepatic portal veins branches likely related to mass effect from the aforementioned masses. No definite occlusion. Bones and soft tissue: No aggressive osseous lesion IMPRESSION: Overall findings suspicious for progression of rectal malignancy with metastatic disease, most pronounced in the liver. Limited motion degraded study.
--- NOTE | 2025-07-14 20:48 | DVHHPRES ---
History of Present Illness Resident Creating Document: QUYEN BARRY RESIDENT History of Present Illness Patient is a 60-year-old male with past medical history of colon cancer, moderate protein calorie malnutrition, dyslipidemia, hypertension, BPH, cachexia, mild intellectual disabilities, GERD, lung nodule, rectal mass, rec urrent falls and major depression, was brought in by EMS due to abdominal pain. Patient is AO x1, however, localizes pain to left lower quadrant. Unable to obtain further history as patient altered. Per paperwork from nursing facility, patient was sent for generalized weakness, chronic abdominal pain and a cough. PMH: colon cancer, moderate protein calorie malnutrition, dyslipidemia, hypertension, BPH, cachexia, mild intellectual disabilities, GERD, lung nodule, rectal mass, recurrent falls and major depression PSH: unknown Social history: trasnferred from [facility] Review of Systems Review of Systems speech not comprehensible A/O X1 points to abd and says he is having pain Allergies: Coded Allergies: NO KNOWN ALLERGIES (Unverified , 07/18/24) Exam Vital Signs Vital Signs Date Time Temp Pulse Resp B/P (MAP) Pulse Ox O2 Delivery O2 Flow Rate FiO2 07/14/25 14:42 99.2 101 18 130/52 96 99.2 Exam patient is cachectic, sunken orbits, temporal wasting Skin - Patients skin is warm and dry. HEENT - normocephalic, atraumatic, moist mucous membranes. Neck - full ROM, no LAD, no JVD Pulmonary - B/L equal breath sounds, no crackles, no wheezing cardiovascular - regular S1,S2 heard, no added sounds, no murmurs heard. GI - distended, hard abdomen.hepatomegaly. Bowel sounds hypoactive Neurological - Patient is A/O X 1 . on wheelchair, speech incomprehensible Labs/Xrays Labs Test 07/14/25 18:07 07/14/25 15:40 Range/Units Lactic Acid Level 5.0 *H 0.4-2.0 mmol/L White Blood Count 17.3 H 4.4-10.8 10^3/uL Red Blood Count 4.67 4.5-5.90 10^6/uL Hemoglobin 10.6 L 13.5-17.5 g/dL Hematocrit 34.7 L 41.0-53.0 % Mean Corpuscular Volume 74.2 L 80.0-100.0 fL Mean Corpuscular Hemoglobin 22.6 L 28.0-32.0 pg Mean Corpuscular Hemoglobin Concent 30.5 L 32.0-36.0 g/dL Red Cell Distribution Width 19.1 H 11.8-14.3 % Platelet Count 573 H 140-450 10^3/uL Mean Platelet Volume 6.9 6.9-10.8 fL Neutrophils (%) (Auto) 82.5 H 37.0-80.0 % Lymphocytes (%) (Auto) 8.2 L 10.0-50.0 % Monocytes (%) (Auto) 8.8 0.0-12.0 % Eosinophils (%) (Auto) 0.3 0.0-7.0 % Basophils (%) (Auto) 0.2 0.0-2.0 % Neutrophils # (Auto) 14.3 H 1.6-8.6 10 ^3/uL Lymphocytes # (Auto) 1.4 0.4-5.4 10 ^3/uL Monocytes # (Auto) 1.5 H 0-1.3 10 ^3/uL Eosinophils # (Auto) 0 0-0.8 10 ^3/uL Basophils # (Auto) 0 0-0.2 10 ^3/uL Nucleated Red Blood Cells 0.2 % Prothrombin Time 11.2 9.3-11.8 sec Prothrombin Time INR 1.06 0.9-1.15 Activated Partial Thromboplast Time 29.3 24.5-34.5 SEC Sodium Level 138 136-145 mmol/L Potassium Level 4.9 3.5-5.1 mmol/L Chloride Level 102 98-107 mmol/L Carbon Dioxide Level 25 20-31 mmol/L Anion Gap 11 5-15 Blood Urea Nitrogen 17 9-23 mg/dL Creatinine 0.65 L 0.700-1.30 mg/dL Glomerular Filtration Rate Calc 107 >90 mL/min BUN/Creatinine Ratio 26.2 H 10.0-20.0 Serum Glucose 114 H 74-106 mg/dL Calcium Level 8.2 L 8.7-10.4 mg/dL Troponin I High Sensitivity 27 </=54 ng/L Lipase 22 12-53 U/L SEPSIS Sepsis Screen Date sepsis recognized/suspect: Jul 14, 2025 Time Sepsis recognized/suspect: 1441 Recent Procedure: No On Antibiotic Therapy: No Respiratory Rate >20: No Heart Rate >90: Yes Temp<36 C (96.8 F) or >38.3 C: No SBP <90 or MAP <65 mmHG: No New Acute Mental Status Change: No Is the patient on CPAP, BIPAP,: No Physician Orders Blood Culture (07/14/25 15:32) Urinalysis (07/14/25 15:32) Chest Portable (07/14/25 15:32) Notify Md If Map <65 Or Bp<90 (07/14/25 16:11) If Map<65 Start Vasopressor (07/14/25 16:11) Sepsis Reassesment After Fluid (07/14/25 17:11) Oxygen By Nasal Cannula (07/14/25 18:) Stat Ekg For Chest Pain (07/14/25 18:25) Notify Md Of Changes From Base (07/14/25 18:25) Platform Operations Director For 24 Hours (07/14/25 18:25) Emergency Dysrhythmia Protocol (07/14/25 18:25) Admit (07/14/25 18:25) Ct Ab Pel With Iv Con Only (07/14/25 15:32) Vital Signs Date Time Temp Pulse Resp B/P (MAP) Pulse Ox O2 Delivery O2 Flow Rate FiO2 07/14/25 14:42 99.2 101 18 130/52 96 99.2 Laboratory Tests Test 07/14/25 15:40 07/14/25 15:49 07/14/25 18:07 White Blood Count 17.3 10^3/uL (4.4-10.8) H Lactic Acid Level 2.5 mmol/L (0.4-2.0) *H 5.0 mmol/L (0.4-2.0) *H Assessment/Plan Assessment/Plan Acute abd pain h/o Metastatic colon CA Liver mets Sepsis possibly d/t UTI ( previous h/o UTI ) Severe constipation likely d/t rectal mass ?Urinary retention - IV fluids - IV ABx empiric coverage with cefepime - Miralax and senna - full liquid diet - may need enema later - patient may benefit from surgical consultation if not able to pass stool for a diverting colostomy - Bladder scan to be done and if post void volume >300ml, insert de la cruz PUD prophylaxis: protonix DVT prophylaxis: enoxaparin Code status as per SNF paperwork- Full code Time spent : 31 mins Plan discussed with Dr. Brothers Plan discussed with: Other (RN) My Orders Orders - QUYEN BARRY RESIDENT Procedure Category Date Status Time Oxygen By Nasal RT 07/14/25 Transmitted Cannula 18:25 Stat Ekg For Chest [facility] 07/14/25 In Process Pain 18:25 Notify Of Changes [facility] 07/14/25 In Process From Base 18:25 Platform Operations Director For [facility] 07/14/25 In Process 24 Hours 18:25 Emergency Dysrhythmia [facility] 07/14/25 In Process Protocol 18:25 Admit ADMIT 07/14/25 Verified 18:25 Date of Service: Jul 14, 2025 Billing Provider: JET BROTHERS MD Common Visit Codes: [id number] INP/OBS CARE (HIGH) Secondary Visit Codes: [id number] CARE PLAN ADDL 30MIN QUYEN BARRY RESIDENT Jul 14, 2025 20:48 JET BROTHERS MD Jul 15, 2025 22:32
[2025-07-14 21:10] VITALS: PULSE 116; RESP 16; O2SAT 97
[2025-07-14] MEDS ORDERED: POLYETHYLENE GLYCOL 17 GM PWDR PO PRN (21:15)
[2025-07-14] MEDS ORDERED: VANCOMYCIN PER PHARMACY 0 MG IV SCH (21:15)
[2025-07-14] MEDS: CEFEPIME 1GM/50ML 50 ML IV STA (21:25)
[2025-07-14] MEDS: SODIUM CHLORIDE 0.9% 1,000 ML IV ONE (21:25)
[2025-07-14 21:48] LABS: Albumin 3.2 g/dL (3.2-4.8); Bilirubin, Total 0.4 mg/dL (0.2-1.0); Total Protein 6.5 g/dL (5.7-8.2)
[2025-07-14 21:55] LABS: Alanine Aminotransferase 42.0 U/L (7-40); Alkaline Phosphatase 552.0 U/L (46-116)
[2025-07-14 22:11] LABS: Bilirubin, Direct 0.2 mg/dL (<0.3)
[2025-07-14] MEDS ORDERED: VANCOMYCIN 1GM/250ML KIT 250 ML IV SCH (22:15)
[2025-07-14 22:34] LABS: Lactic Acid w/Reflex 3.4 mmol/L (0.4-2.0)
[2025-07-14] MEDS: PANTOPRAZOLE 40 MG/10 ML VIAL INJ IV ONE (23:43)
[2025-07-14] MEDS: TAMSULOSIN HYDROCHLORIDE 0.4 MG CAP PO ONE (23:43)
[2025-07-14] MEDS: CEFEPIME 1GM/50ML 50 ML IV SCH (23:43)
[2025-07-14] MEDS: LACTATED RINGER'S 2,400 ML IV ONE (23:43)
[2025-07-14] MEDS: SENNA 8.6 MG TAB PO ONE (23:44)
[2025-07-14] MEDS: POLYETHYLENE GLYCOL 17 GM PWDR PO ONE (23:44)
[2025-07-15] VITALS (8 sets, daily range): BP systolic 103–121; BP diastolic 60–78; PULSE 75–97; RESP 18–22; TEMP 97.3–98.3; O2SAT 97–99
[2025-07-15] MEDS: IOHEXOL 300 MG/ML 100ML BOTTLE IJ ONE (00:27)
[2025-07-15] MEDS: LACTATED RINGER'S 1,000 ML IV ONE (01:18)
[2025-07-15] MEDS: LACTATED RINGER'S 500 ML IV ONE (01:18)
[2025-07-15 02:42] LABS: COVID19 ANTIGEN SOFIA FIA NEGATIVE (NEGATIVE)
[2025-07-15 06:08] LABS: Hematocrit 31.0 % (41.0-53.0); Hemoglobin 9.4 g/dL (13.5-17.5)
[2025-07-15 06:10] LABS: Mean Corpuscular Hemoglobin 22.2 pg (28.0-32.0); Mean Corpuscular Volume 73.2 fL (80.0-100.0); Nucleated Red Blood Cells % 0.1 %
[2025-07-15 06:43] LABS: Alanine Aminotransferase 31 U/L (7-40); Anion Gap 11 (5-15); BUN/Creatinine Ratio 26.0 (10.0-20.0); Blood Urea Nitrogen 19 mg/dL (9-23); Carbon Dioxide 25 mmol/L (20-31); Chloride 102 mmol/L (98-107); Glucose 100 mg/dL (74-106); Potassium 4.1 mmol/L (3.5-5.1); Sodium 138 mmol/L (136-145)
[2025-07-15 06:44] LABS: Total Protein 5.9 g/dL (5.7-8.2)
[2025-07-15 06:45] LABS: Bilirubin, Total 0.4 mg/dL (0.2-1.0)
[2025-07-15 06:46] LABS: Albumin 2.7 g/dL (3.2-4.8); Alkaline Phosphatase 415 U/L (46-116); Calcium 8.1 mg/dL (8.7-10.4)
[2025-07-15 06:48] LABS: Iron 15.0 ug/dL (65-175); Total Iron Binding Capacity 211.0 ug/dL (250-425)
[2025-07-15] MEDS: PANTOPRAZOLE 40 MG/10 ML VIAL INJ IV SCH (09:46)
[2025-07-15] MEDS: ENOXAPARIN SOD 40 MG/0.4 ML SYRINGE SC SCH (09:47)
[2025-07-15 12:37] LABS: Lactic Acid w/Reflex 3.2 mmol/L (0.4-2.0)
[2025-07-15 13:05] LABS: Urine Protein, UAD TRACE (Negative)
--- NOTE | 2025-07-15 13:23 | DVH ---
CT HEAD WITHOUT CONTRAST Indication: r/o mets to brain EXAM DATE: 07/15/2025 12:45 PM COMPARISON: None TECHNIQUE: CT of the head without intravenous contrast. RADIATION DOSE: CTDIvol: 50.33 mGy, DLP: 1795.31 mGy*cm FINDINGS: Examination degraded by motion. There is no intracranial hemorrhage. There is no extra-axial fluid, mass, mass effect or midline shift. The ventricles are midline and normal in size. Basilar cisterns are patent. Mild periventricular and subcortical white matter chronic microvascular ischemic changes. The paranasal sinuses and mastoids are well-pneumatized. Imaged portion of the orbits are unremarkable. IMPRESSION: No CT evidence intracranial hemorrhage or mass effect. Recommend MRI brain with and without contrast to better characterize.
[2025-07-15] MEDS: ONDANSETRON HCL 4 MG/2 ML VIAL IV PRN (13:37)
--- NOTE | 2025-07-15 15:47 | DVHPNRES ---
Progress Note Date Seen: Jul 15, 2025 Resident Creating Document: JONNIE ARTEAGA RESIDENT Medical Necessity Reason Pt with a Central, PICC or Fol: No Subjective Review of Systems Patient is a 60-year-old male with past medical history of colon cancer diagnosed 1 year ago, moderate protein calorie malnutrition, dyslipidemia, hypertension, BPH, cachexia, mild intellectual disabilities, handicapped, GERD, lung nodule, rectal mass, recurrent falls and major depression, was brought in by EMS due to abdominal pain. Patient is AO x1, however, localizes pain to left lower quadrant and supra pubic pain. Unable to obtain further history as patient altered. Per paperwork from nursing facility, patient was sent for generalized weakness, chronic abdominal pain and a cough. As per patient's father patient stopped getting chemotherapy. PMH: colon cancer, moderate protein calorie malnutrition, dyslipidemia, hypertension, BPH, cachexia, mild intellectual disabilities, GERD, lung nodule, rectal mass, recurrent falls and major depression PSH: unknown Family history: unknown Social history: transferred from [facility], denies smoking 07/15/2025: Patient seen at bedside. Patient is A&O x1, on room air, states his name but not place and time, patient does complain of pain and tenderness on palpation of her eyes supra pubic and left lower quadrant. Patient denies any nausea, vomiting, diarrhea. Talked to patient's father([phone]) who stated that patient had diagnosed colon cancer 1 year ago, discussed with father about hospice and meeting tomorrow. And has stopped taking chemotherapy. Patient has Mets to the liver but on CT head had no metastasis. Patient's baseline of mental status is confused and hard to understand. Objective vital signs Vital Sign Date Time Temp Pulse Resp B/P (MAP) Pulse Ox O2 Delivery O2 Flow Rate FiO2 07/15/25 09:00 97.5 82 22 103/60 (74) 98 97.5 07/15/25 04:18 Room Air* 0 21 Total Intake and Output 07/14/25 07/14/25 07/15/25 15:00 23:00 07:00 Intake Total 1012.5 ml 4487.5 ml Balance 1012.5 ml 4487.5 ml medications Current Medications Medications Dose Ordered Sig/Cynthia Route Start Time Stop Time Status Last Admin Dose Admin Cefepime HCl 50 ml @ 12.5 mls/hr Q8HR IV 07/14/25 22:00 07/15/25 13:34 12.5 MLS/HR Polyethylene Glycol 17 gm DAILYPRN PRN PO 07/14/25 21:15 Ondansetron HCl 4 mg Q6HPRN PRN IV 07/14/25 21:15 07/15/25 13:37 4 MG Pantoprazole Sodium 40 mg DAILY IV 07/15/25 10:00 07/15/25 09:46 40 MG Tamsulosin HCl 0.8 mg QPM PO 07/15/25 18:00 Enoxaparin Sodium 40 mg DAILY SC 07/15/25 10:00 07/15/25 09:47 40 MG Sennosides 17.2 mg HS PO 07/15/25 22:00 Examination General: A&O x1 HEENT: Normocephalic, atraumatic, moist mucous membranes Respiratory/pulmonary: Clear lungs bilaterally, vesicular murmurs present in almost all lung hopper, no associated crackles or wheezes. Cardiovascular: Normal heart sounds S1 and S2 with no associated murmurs Abdomen: Distended abdomen, tenderness to palpation in suprapubic and left lower quadrant. Extremities: There is no peripheral edema present at the lower extremities. Peripheral Pulses: 3+ Radial (R). 3+ Radial (L). 3+ Dorsalis pedis (R). 3+ Dorsalis pedis(L) Skin: No rashes or pruritus, there is no sacral edema present at this time. Neurological: Intact cranial nerves with no focal neurologic deficits laboratory and microbiology Laboratory Tests 07/15/25 05:25 Test 07/15/25 05:25 Range/Units Serum Glucose 100 74-106 mg/dL Problem List/Assessment/Plan Problem List/Assessment/Plan Intractable abdominal pain possibly due to UTI h/o Metastatic colon CA Liver mets Sepsis possibly d/t UTI ( previous h/o UTI ) Severe constipation likely d/t rectal mass acute complicated UTI ?Urinary retention lactic acidosis - IV fluids - urinalysis shows positive for UTI - IV ABx empiric coverage with cefepime - Miralax and senna - full liquid diet - may need enema later - patient may benefit from surgical consultation if not able to pass stool for a diverting colostomy - Bladder scan to be done and if post void volume >300ml, insert de la cruz PUD prophylaxis: protonix DVT prophylaxis: enoxaparin Code status as per SNF paperwork- Full code Time spent : 31 mins Plan discussed with Dr. Brothers Plan discussed with: Patient, Other (father) My Orders My Orders Orders - JONNIE ARTEAGA Procedure Category Date Status Time Drug Screen LAB 07/15/25 Logged 09:13 Urine Bacterial CRAIG 07/15/25 In Process Culture 09:13 Cardiac DIET 07/15/25 Transmitted Diet-2gna,Lofat,Lochol Lunch Head Without Contrast CT 07/15/25 Resulted 12:30 Date of Service: Jul 15, 2025 Billing Provider: JET BROTHERS MD Common Visit Codes: [id number] INP/OBS CARE(HIGH) JONNIE ARTEAGA Jul 15, 2025 15:47 JET BROTHERS MD Jul 15, 2025 22:31
[2025-07-15] MEDS: TAMSULOSIN HYDROCHLORIDE 0.4 MG CAP PO SCH (17:48)
[2025-07-15] MEDS: SENNA 8.6 MG TAB PO SCH (21:29)
[2025-07-16] VITALS (8 sets, daily range): BP systolic 102–118; BP diastolic 60–77; PULSE 79–94; RESP 17–20; TEMP 97.6–98.6; O2SAT 95–98
[2025-07-16 01:16] LABS: Benzodiazephine Screen, Urine Neg (NEGATIVE)
[2025-07-16 01:20] LABS: Amphetamine Screen, Urine Neg (NEGATIVE); Barbiturate Scree,Urine Neg (NEGATIVE); Cannabinoid Screen, Urine Neg (NEGATIVE); Cocaine Screen, Urine Neg (NEGATIVE); Opiate Scree,Urine Neg (NEGATIVE); Phencyclidine Screen, Urine Neg (NEGATIVE)
[2025-07-16 06:11] LABS: Hematocrit 29.1 % (41.0-53.0); Hemoglobin 9.2 g/dL (13.5-17.5); Mean Corpuscular Hemoglobin 22.7 pg (28.0-32.0); Mean Corpuscular Volume 72.3 fL (80.0-100.0); Nucleated Red Blood Cells % 0.2 %
[2025-07-16 06:22] LABS: Chloride 104 mmol/L (98-107); Potassium 4.0 mmol/L (3.5-5.1); Sodium 140 mmol/L (136-145)
[2025-07-16 06:23] LABS: Anion Gap 9 (5-15); Carbon Dioxide 27 mmol/L (20-31)
[2025-07-16 06:28] LABS: BUN/Creatinine Ratio 23.2 (10.0-20.0); Blood Urea Nitrogen 16 mg/dL (9-23); Glucose 82 mg/dL (74-106)
[2025-07-16 06:34] LABS: Calcium 8.3 mg/dL (8.7-10.4)
--- NOTE | 2025-07-16 11:16 | DVHPNRES ---
Progress Note Date Seen: Jul 16, 2025 Resident Creating Document: JONNIE ARTEAGA RESIDENT Medical Necessity Reason Pt with a Central, PICC or Fol: No Subjective Review of Systems Patient is a 60-year-old male with past medical history of colon cancer diagnosed 1 year ago, moderate protein calorie malnutrition, dyslipidemia, hypertension, BPH, cachexia, mild intellectual disabilities, handicapped, GERD, lung nodule, rectal mass, recurrent falls and major depression, was brought in by EMS due to abdominal pain. Patient is AO x1, however, localizes pain to left lower quadrant and supra pubic pain. Unable to obtain further history as patient altered. Per paperwork from nursing facility, patient was sent for generalized weakness, chronic abdominal pain and a cough. As per patient's father patient stopped getting chemotherapy. PMH: colon cancer, moderate protein calorie malnutrition, dyslipidemia, hypertension, BPH, cachexia, mild intellectual disabilities, GERD, lung nodule, rectal mass, recurrent falls and major depression PSH: unknown Family history: unknown Social history: transferred from [facility], denies smoking 07/15/2025: Patient seen at bedside. Patient is A&O x1, on room air, states his name but not place and time, patient does complain of pain and tenderness on palpation of her eyes supra pubic and left lower quadrant. Patient denies any nausea, vomiting, diarrhea. Talked to patient's father([phone]) who stated that patient had diagnosed colon cancer 1 year ago, discussed with father about hospice and meeting tomorrow. And has stopped taking chemotherapy. Patient has Mets to the liver but on CT head had no metastasis. Patient's baseline of mental status is confused and hard to understand. 07/16/2025: Patient seen at bedside. Patient is A&o x1. on room air, states still had pain in the lower abdomen. discussion of hospice to be done. Added acetaminophen 650 but limited to 2 g per day. Objective vital signs Vital Sign Date Time Temp Pulse Resp B/P (MAP) Pulse Ox O2 Delivery O2 Flow Rate FiO2 07/16/25 09:00 97.6 79 18 111/69 (83) 98 97.6 07/16/25 08:00 Room Air* 0 21 Total Intake and Output 07/15/25 07/15/25 07/16/25 15:00 23:00 07:00 Intake Total 50 ml 450 ml 175 ml Balance 50 ml 450 ml 175 ml medications Current Medications Medications Dose Ordered Sig/Cynthia Route Start Time Stop Time Status Last Admin Dose Admin Cefepime HCl 50 ml @ 12.5 mls/hr Q8HR IV 07/14/25 22:00 07/16/25 05:41 12.5 MLS/HR Polyethylene Glycol 17 gm DAILYPRN PRN PO 07/14/25 21:15 Ondansetron HCl 4 mg Q6HPRN PRN IV 07/14/25 21:15 07/16/25 08:59 4 MG Pantoprazole Sodium 40 mg DAILY IV 07/15/25 10:00 07/16/25 08:59 40 MG Tamsulosin HCl 0.8 mg QPM PO 07/15/25 18:00 07/15/25 17:48 0.8 MG Enoxaparin Sodium 40 mg DAILY SC 07/15/25 10:00 07/16/25 09:00 40 MG Sennosides 17.2 mg HS PO 07/15/25 22:00 07/15/25 21:29 17.2 MG Examination General: A&O x1 HEENT: Normocephalic, atraumatic, moist mucous membranes Respiratory/pulmonary: Clear lungs bilaterally, vesicular murmurs present in almost all lung hopper, no associated crackles or wheezes. Cardiovascular: Normal heart sounds S1 and S2 with no associated murmurs Abdomen: Distended abdomen, tenderness to palpation in suprapubic and left lower quadrant. Extremities: There is no peripheral edema present at the lower extremities. Peripheral Pulses: 3+ Radial (R). 3+ Radial (L). 3+ Dorsalis pedis (R). 3+ Dorsalis pedis(L) Skin: No rashes or pruritus, there is no sacral edema present at this time. Neurological: Intact cranial nerves with no focal neurologic deficits laboratory and microbiology Laboratory Tests 07/16/25 05:09 Test 07/16/25 05:09 Range/Units Serum Glucose 82 74-106 mg/dL Microbiology Date/Time Source Procedure Growth Status 07/14/25 15:49 Blood Blood Culture - Preliminary NO GROWTH AFTER 24 HOURS OF INCUBATION. Resulted Problem List/Assessment/Plan Problem List/Assessment/Plan Intractable abdominal pain possibly due to UTI h/o Metastatic colon CA Liver mets Sepsis possibly d/t UTI ( previous h/o UTI ) Severe constipation likely d/t rectal mass acute complicated UTI ?Urinary retention lactic acidosis - pain management with acetaminophen but limit to 2 g per day - IV fluids - urinalysis shows positive for UTI - IV ABx empiric coverage with cefepime - Miralax and senna - full liquid diet - may need enema later - patient may benefit from surgical consultation if not able to pass stool for a diverting colostomy - Bladder scan to be done and if post void volume >300ml, insert de la cruz PUD prophylaxis: protonix DVT prophylaxis: enoxaparin Discussed with father- full code Time spent : 31 mins Plan discussed with Dr. Brothers Plan discussed with: Patient, Other (Father) My Orders My Orders Orders - JONNIE ARTEAGA Procedure Category Date Status Time Cardiac DIET 07/15/25 Transmitted Diet-2gna,Lofat,Lochol Lunch Head Without Contrast CT 07/15/25 Resulted 12:30 Acetaminophen Tablet PHA 07/16/25 Transmitted (Tylenol Tablet) 11:15 Date of Service: Jul 16, 2025 Billing Provider: JET BROTHERS MD Common Visit Codes: [id number] INP/OBS CARE(HIGH) JONNIE ARTEAGA Jul 16, 2025 11:16 JET BROTHERS MD Jul 16, 2025 23:15
[2025-07-16] MEDS: ACETAMINOPHEN 325 MG TAB PO PRN (15:24)
[2025-07-16 15:48] LABS: Alanine Aminotransferase 29.0 U/L (7-40); Albumin 2.8 g/dL (3.2-4.8); Alkaline Phosphatase 395.0 U/L (46-116); Bilirubin, Direct 0.2 mg/dL (<0.3); Bilirubin, Total 0.4 mg/dL (0.2-1.0); Total Protein 5.9 g/dL (5.7-8.2)
[2025-07-16] MEDS: ACETAMINOPHEN 325 MG TAB PO ONE (16:35)
[2025-07-17] VITALS (8 sets, daily range): BP systolic 101–115; BP diastolic 63–71; PULSE 81–98; RESP 14–19; TEMP 97.4–98; O2SAT 91–98
[2025-07-17] MEDS: HYDROcodone-ACET 5/325MG TAB PO ONE (06:13)
[2025-07-17 06:43] LABS: Hematocrit 27.4 % (41.0-53.0); Hemoglobin 8.7 g/dL (13.5-17.5); Mean Corpuscular Hemoglobin 22.6 pg (28.0-32.0); Mean Corpuscular Volume 71.5 fL (80.0-100.0); Nucleated Red Blood Cells % 0.3 %
[2025-07-17 07:03] LABS: Alanine Aminotransferase 27 U/L (7-40); Anion Gap 9 (5-15); BUN/Creatinine Ratio 17.6 (10.0-20.0); Bilirubin, Total 0.4 mg/dL (0.2-1.0); Blood Urea Nitrogen 13 mg/dL (9-23); Carbon Dioxide 26 mmol/L (20-31); Chloride 102 mmol/L (98-107); Glucose 76 mg/dL (74-106); Potassium 3.9 mmol/L (3.5-5.1); Sodium 137 mmol/L (136-145)
[2025-07-17 07:04] LABS: Albumin 2.6 g/dL (3.2-4.8); Alkaline Phosphatase 367 U/L (46-116); Calcium 8.0 mg/dL (8.7-10.4); Total Protein 5.5 g/dL (5.7-8.2)
[2025-07-17] MEDS: HYDROcodone-ACET 5/325MG TAB PO PRN (15:01)
--- NOTE | 2025-07-17 18:32 | DVHPNRES ---
Progress Note Date Seen: Jul 17, 2025 Resident Creating Document: JADA CHU RESIDENT Medical Necessity Reason Pt with a Central, PICC or Fol: No Subjective Review of Systems Patient is a 60-year-old male with past medical history of colon cancer diagnosed 1 year ago, moderate protein calorie malnutrition, dyslipidemia, hypertension, BPH, cachexia, mild intellectual disabilities, handicapped, GERD, lung nodule, rectal mass, recurrent falls and major depression, was brought in by EMS due to abdominal pain. Patient is AO x1, however, localizes pain to left lower quadrant and supra pubic pain. Unable to obtain further history as patient altered. Per paperwork from nursing facility, patient was sent for generalized weakness, chronic abdominal pain and a cough. As per patient's father patient stopped getting chemotherapy. PMH: colon cancer, moderate protein calorie malnutrition, dyslipidemia, hypertension, BPH, cachexia, mild intellectual disabilities, GERD, lung nodule, rectal mass, recurrent falls and major depression PSH: unknown Family history: unknown Social history: transferred from [facility], denies smoking 07/15/2025: Patient seen at bedside. Patient is A&O x1, on room air, states his name but not place and time, patient does complain of pain and tenderness on palpation of her eyes supra pubic and left lower quadrant. Patient denies any nausea, vomiting, diarrhea. Talked to patient's father([phone]) who stated that patient had diagnosed colon cancer 1 year ago, discussed with father about hospice and meeting tomorrow. And has stopped taking chemotherapy. Patient has Mets to the liver but on CT head had no metastasis. Patient's baseline of mental status is confused and hard to understand. 07/16/2025: Patient seen at bedside. Patient is A&o x1. on room air, states still had pain in the lower abdomen. discussion of hospice to be done. Added acetaminophen 650 but limited to 2 g per day. 07/17/25- the patient was seen at bedside today. Patient complains of abdominal pain. IV antibiotics were downgraded from cefepime to ceftriaxone. Patient was started on IV iron infusion. Physical therapy evaluation was requested. Patient was started on Lovenox 40 mg daily SC. [place] 5q4 p.r.n. was added to the medication regimen for severe pain. Objective vital signs Vital Sign Date Time Temp Pulse Resp B/P (MAP) Pulse Ox O2 Delivery O2 Flow Rate FiO2 07/17/25 16:46 98.0 91 14 106/68 (81) 93 98.0 07/17/25 08:00 Room Air* 0 21 Total Intake and Output 07/16/25 07/16/25 07/17/25 15:00 23:00 07:00 Intake Total 750 ml 50 ml Output Total 200 ml 400 ml Balance 550 ml -350 ml medications Current Medications Medications Dose Ordered Sig/Cynthia Route Start Time Stop Time Status Last Admin Dose Admin Polyethylene Glycol 17 gm DAILYPRN PRN PO 07/14/25 21:15 Ondansetron HCl 4 mg Q6HPRN PRN IV 07/14/25 21:15 07/17/25 08:44 4 MG Pantoprazole Sodium 40 mg DAILY IV 07/15/25 10:00 07/17/25 08:43 40 MG Tamsulosin HCl 0.8 mg QPM PO 07/15/25 18:00 07/17/25 17:12 0.8 MG Enoxaparin Sodium 40 mg DAILY SC 07/15/25 10:00 07/17/25 08:43 40 MG Sennosides 17.2 mg HS PO 07/15/25 22:00 07/16/25 22:40 17.2 MG Acetaminophen 650 mg Q8HP PRN PO 07/16/25 11:15 07/17/25 08:44 650 MG Acetaminophen/ Hydrocodone Bitart 1 tab Q4HPRN PRN PO 07/17/25 09:45 07/17/25 15:01 1 TAB Iron Sucrose 110 ml @ 110 mls/hr DAILY@1200 IV 07/18/25 12:00 07/22/25 11:59 Ceftriaxone Sodium 50 ml @ 100 mls/hr DAILY@09 IV 07/18/25 09:00 Examination General: A&O x1 HEENT: Normocephalic, atraumatic, moist mucous membranes Respiratory/pulmonary: Clear lungs bilaterally, no associated crackles or wheezes. Cardiovascular: Normal heart sounds S1 and S2 with no associated murmurs Abdomen: Distended abdomen, tenderness to palpation in suprapubic and left lower quadrant. Extremities: There is no peripheral edema present at the lower extremities. Peripheral Pulses: 3+ Radial (R). 3+ Radial (L). 3+ Dorsalis pedis (R). 3+ Dorsalis pedis(L) Skin: No rashes or pruritus, there is no sacral edema present at this time. Neurological: Intact cranial nerves with no focal neurologic deficits laboratory and microbiology Laboratory Tests 07/17/25 05:36 Test 07/17/25 05:36 Range/Units Serum Glucose 76 74-106 mg/dL Microbiology Date/Time Source Procedure Growth Status 07/15/25 12:35 Voided Urine Urine Culture - Final Complete 07/14/25 15:49 Blood Blood Culture - Preliminary NO GROWTH AFTER 72 HOURS OF INCUBATION. Resulted Labs and/or images reviewed: Labs reviewed by me, Image(s) reviewed by me Problem List/Assessment/Plan Problem List/Assessment/Plan # Intractable abdominal pain possibly due to UTI # h/o Metastatic colon CA # Liver mets # Sepsis possibly d/t UTI ( previous h/o UTI ) # Severe constipation likely d/t rectal mass # acute complicated UTI # ?Urinary retention # lactic acidosis - pain management with acetaminophen but limit to 2 g per day, [place] for 5 q4 p.r.n. - IV fluids - urinalysis shows positive for UTI - IV ABx empiric coverage with ceftriaxone - Miralax and senna - may need enema later - patient may benefit from surgical consultation if not able to pass stool for a diverting colostomy - Bladder scan to be done and if post void volume >300ml, insert de la cruz # Chronic microcytic hypochromic anemia -started on IV iron infusion PUD prophylaxis: protonix DVT prophylaxis: Lovenox 40 mg daily SC Discussed with father- full code Plan discussed with Dr. Infante Plan discussed with: Patient My Orders My Orders Orders - JADA CHU RESIDENT Procedure Category Date Status Time Hydrocodone-Acet PHA 07/17/25 In Process 5/325mg Tab ([place] 09:45 Pt Request For Service PT 07/17/25 Logged 13:32 Iron Sucrose Complex PHA 07/18/25 In Process (Venofer) 12:00 Ceftriaxone 1gm/50ml PHA 07/18/25 In Process (Rocephin) 09:00 Date of Service: Jul 17, 2025 Billing Provider: HOLLI ROMERO MD Common Visit Codes: [id number] INP/OBS CARE(HIGH) JADA CHU RESIDENT Jul 17, 2025 18:32
[2025-07-18] VITALS (7 sets, daily range): BP systolic 94–120; BP diastolic 59–83; PULSE 83–100; RESP 15–20; TEMP 97.8–98.8; O2SAT 93–97
[2025-07-18 06:47] LABS: Hematocrit 28.1 % (41.0-53.0); Hemoglobin 8.6 g/dL (13.5-17.5); Mean Corpuscular Hemoglobin 22.2 pg (28.0-32.0); Mean Corpuscular Volume 72.4 fL (80.0-100.0)
[2025-07-18 06:49] LABS: Nucleated Red Blood Cells % 0.1 %
[2025-07-18 06:53] LABS: Carbon Dioxide 26 mmol/L (20-31)
[2025-07-18 06:54] LABS: Chloride 103 mmol/L (98-107); Potassium 4.0 mmol/L (3.5-5.1)
[2025-07-18 06:58] LABS: BUN/Creatinine Ratio 20.5 (10.0-20.0); Blood Urea Nitrogen 15 mg/dL (9-23); Glucose 83 mg/dL (74-106)
[2025-07-18 07:02] LABS: Calcium 8.1 mg/dL (8.7-10.4)
--- NOTE | 2025-07-18 07:58 | DVHPNRES ---
Progress Note Date Seen: Jul 18, 2025 Resident Creating Document: JONNIE ARTEAGA RESIDENT Medical Necessity Reason Pt with a Central, PICC or Fol: No Subjective Review of Systems Patient is a 60-year-old male with past medical history of colon cancer diagnosed 1 year ago, moderate protein calorie malnutrition, dyslipidemia, hypertension, BPH, cachexia, mild intellectual disabilities, handicapped, GERD, lung nodule, rectal mass, recurrent falls and major depression, was brought in by EMS due to abdominal pain. Patient is AO x1, however, localizes pain to left lower quadrant and supra pubic pain. Unable to obtain further history as patient altered. Per paperwork from nursing facility, patient was sent for generalized weakness, chronic abdominal pain and a cough. As per patient's father patient stopped getting chemotherapy. PMH: colon cancer, moderate protein calorie malnutrition, dyslipidemia, hypertension, BPH, cachexia, mild intellectual disabilities, GERD, lung nodule, rectal mass, recurrent falls and major depression PSH: unknown Family history: unknown Social history: transferred from [facility], denies smoking 07/15/2025: Patient seen at bedside. Patient is A&O x1, on room air, states his name but not place and time, patient does complain of pain and tenderness on palpation of her eyes supra pubic and left lower quadrant. Patient denies any nausea, vomiting, diarrhea. Talked to patient's father([phone]) who stated that patient had diagnosed colon cancer 1 year ago, discussed with father about hospice and meeting tomorrow. And has stopped taking chemotherapy. Patient has Mets to the liver but on CT head had no metastasis. Patient's baseline of mental status is confused and hard to understand. 07/16/2025: Patient seen at bedside. Patient is A&o x1. on room air, states still had pain in the lower abdomen. discussion of hospice to be done. Added acetaminophen 650 but limited to 2 g per day. 07/17/25- Patient was seen at bedside today. Patient complains of abdominal pain. IV antibiotics were downgraded from cefepime to ceftriaxone. Patient was started on IV iron infusion. Physical therapy evaluation was requested. Patient was started on Lovenox 40 mg daily SC. [place] 5q4 p.r.n. was added to the medication regimen for severe pain. 07/18/25: Patient seen at bedside. Patient today complains of abdominal pain. IV ceftriaxone. Hospice discussion to be done on Saturday. Objective vital signs Vital Sign Date Time Temp Pulse Resp B/P (MAP) Pulse Ox O2 Delivery O2 Flow Rate FiO2 07/18/25 05:00 97.8 83 17 111/83 (92) 94 97.8 07/17/25 20:00 Room Air* 0 21 Total Intake and Output 07/17/25 07/17/25 07/18/25 15:00 23:00 07:00 Intake Total 400 ml 700 ml Output Total 450 ml Balance -50 ml 700 ml medications Current Medications Medications Dose Ordered Sig/Cynthia Route Start Time Stop Time Status Last Admin Dose Admin Polyethylene Glycol 17 gm DAILYPRN PRN PO 07/14/25 21:15 Ondansetron HCl 4 mg Q6HPRN PRN IV 07/14/25 21:15 07/17/25 08:44 4 MG Pantoprazole Sodium 40 mg DAILY IV 07/15/25 10:00 07/17/25 08:43 40 MG Tamsulosin HCl 0.8 mg QPM PO 07/15/25 18:00 07/17/25 17:12 0.8 MG Enoxaparin Sodium 40 mg DAILY SC 07/15/25 10:00 07/17/25 08:43 40 MG Sennosides 17.2 mg HS PO 07/15/25 22:00 07/17/25 21:58 17.2 MG Acetaminophen 650 mg Q8HP PRN PO 07/16/25 11:15 07/17/25 08:44 650 MG Acetaminophen/ Hydrocodone Bitart 1 tab Q4HPRN PRN PO 07/17/25 09:45 07/18/25 06:54 1 TAB Iron Sucrose 110 ml @ 110 mls/hr DAILY@1200 IV 07/18/25 12:00 07/22/25 11:59 Ceftriaxone Sodium 50 ml @ 100 mls/hr DAILY@09 IV 07/18/25 09:00 Examination General: A&O x1 HEENT: Normocephalic, atraumatic, moist mucous membranes Respiratory/pulmonary: Clear lungs bilaterally, no associated crackles or wheezes. Cardiovascular: Normal heart sounds S1 and S2 with no associated murmurs Abdomen: Distended abdomen, tenderness to palpation in suprapubic and left lower quadrant. Extremities: There is no peripheral edema present at the lower extremities. Peripheral Pulses: 3+ Radial (R). 3+ Radial (L). 3+ Dorsalis pedis (R). 3+ Dorsalis pedis(L) Skin: No rashes or pruritus, there is no sacral edema present at this time. Neurological: Intact cranial nerves with no focal neurologic deficits laboratory and microbiology Laboratory Tests 07/18/25 05:14 Test 07/18/25 05:14 Range/Units Serum Glucose 83 74-106 mg/dL Microbiology Date/Time Source Procedure Growth Status 07/15/25 12:35 Voided Urine Urine Culture - Final Complete 07/14/25 15:49 Blood Blood Culture - Preliminary NO GROWTH AFTER 72 HOURS OF INCUBATION. Resulted Problem List/Assessment/Plan Problem List/Assessment/Plan # Intractable abdominal pain possibly due to UTI # h/o Metastatic colon CA # Liver mets # Sepsis possibly d/t UTI ( previous h/o UTI ) # Severe constipation likely d/t rectal mass # acute complicated UTI # ?Urinary retention # lactic acidosis - pain management with acetaminophen but limit to 2 g per day, [place] for 5 q4 p.r.n. - IV fluids - urinalysis shows positive for UTI - IV ABx empiric coverage with ceftriaxone - Miralax and senna - may need enema later - patient may benefit from surgical consultation if not able to pass stool for a diverting colostomy - Bladder scan to be done and if post void volume >300ml, insert de la cruz # Chronic microcytic hypochromic anemia -started on IV iron infusion PUD prophylaxis: protonix DVT prophylaxis: Lovenox 40 mg daily SC Discussed with father- full code Plan discussed with Dr. Infante Plan discussed with: Patient, Other (Father) Date of Service: Jul 18, 2025 Billing Provider: HOLLI ROMERO MD Common Visit Codes: [id number] INP/OBS CARE(HIGH) JONNIE ARTEAGA RESIDENT Jul 18, 2025 07:58
[2025-07-18 08:14] LABS: Anion Gap 9 (5-15); Sodium 138 mmol/L (136-145)
[2025-07-18] MEDS: IRON SUCROSE COMPLEX 110 ML IV SCH (13:11)
[2025-07-18] MEDS: HYDROcodone-ACET 5/325MG TAB ONE ×4 (17:16→17:58)
[2025-07-18] MEDS: SENNA 8.6 MG TAB PO SCH (21:58)
[2025-07-19] VITALS (8 sets, daily range): BP systolic 101–130; BP diastolic 60–76; PULSE 89–100; RESP 16–20; TEMP 97.1–98.6; O2SAT 93–98
[2025-07-19 06:16] LABS: Hematocrit 29.0 % (41.0-53.0); Hemoglobin 9.1 g/dL (13.5-17.5); Mean Corpuscular Hemoglobin 22.5 pg (28.0-32.0); Mean Corpuscular Volume 71.9 fL (80.0-100.0); Nucleated Red Blood Cells % 0.3 %
--- NOTE | 2025-07-19 14:55 | DVHPNRES ---
Progress Note Date Seen: Jul 19, 2025 Resident Creating Document: JONNIE ARTEAGA RESIDENT Medical Necessity Reason Pt with a Central, PICC or Fol: No Subjective Review of Systems Patient is a 60-year-old male with past medical history of colon cancer diagnosed 1 year ago, moderate protein calorie malnutrition, dyslipidemia, hypertension, BPH, cachexia, mild intellectual disabilities, handicapped, GERD, lung nodule, rectal mass, recurrent falls and major depression, was brought in by EMS due to abdominal pain. Patient is AO x1, however, localizes pain to left lower quadrant and supra pubic pain. Unable to obtain further history as patient altered. Per paperwork from nursing facility, patient was sent for generalized weakness, chronic abdominal pain and a cough. As per patient's father patient stopped getting chemotherapy. PMH: colon cancer, moderate protein calorie malnutrition, dyslipidemia, hypertension, BPH, cachexia, mild intellectual disabilities, GERD, lung nodule, rectal mass, recurrent falls and major depression PSH: unknown Family history: unknown Social history: transferred from [facility], denies smoking 07/15/2025: Patient seen at bedside. Patient is A&O x1, on room air, states his name but not place and time, patient does complain of pain and tenderness on palpation of her eyes supra pubic and left lower quadrant. Patient denies any nausea, vomiting, diarrhea. Talked to patient's father([phone]) who stated that patient had diagnosed colon cancer 1 year ago, discussed with father about hospice and meeting tomorrow. And has stopped taking chemotherapy. Patient has Mets to the liver but on CT head had no metastasis. Patient's baseline of mental status is confused and hard to understand. 07/16/2025: Patient seen at bedside. Patient is A&o x1. on room air, states still had pain in the lower abdomen. discussion of hospice to be done. Added acetaminophen 650 but limited to 2 g per day. 07/17/25- Patient was seen at bedside today. Patient complains of abdominal pain. IV antibiotics were downgraded from cefepime to ceftriaxone. Patient was started on IV iron infusion. Physical therapy evaluation was requested. Patient was started on Lovenox 40 mg daily SC. [place] 5q4 p.r.n. was added to the medication regimen for severe pain. 07/18/25: Patient seen at bedside. Patient today complains of abdominal pain. IV ceftriaxone. Hospice discussion to be done on Saturday. : Patient seen at bedside. Patient today complained of abdominal pain, discussed with father regarding hospice at [facility] and father has agreed. social service consulted for hospice at [facility]. Keflex 250 mg p.o. q.6 Objective vital signs Vital Sign Date Time Temp Pulse Resp B/P (MAP) Pulse Ox O2 Delivery O2 Flow Rate FiO2 07/19/25 13:00 97.3 89 20 130/70 (90) 95 97.3 07/18/25 20:00 Room Air* 0 21 Total Intake and Output 07/18/25 07/18/25 07/19/25 15:00 23:00 07:00 Intake Total 160 ml 640 ml 980 ml Output Total 275 ml 1400 ml Balance 160 ml 365 ml -420 ml medications Current Medications Medications Dose Ordered Sig/Cynthia Route Start Time Stop Time Status Last Admin Dose Admin Polyethylene Glycol 17 gm DAILYPRN PRN PO 07/14/25 21:15 Ondansetron HCl 4 mg Q6HPRN PRN IV 07/14/25 21:15 07/17/25 08:44 4 MG Tamsulosin HCl 0.8 mg QPM PO 07/15/25 18:00 07/18/25 17:58 0.8 MG Enoxaparin Sodium 40 mg DAILY SC 07/15/25 10:00 07/19/25 10:00 40 MG Acetaminophen 650 mg Q8HP PRN PO 07/16/25 11:15 07/17/25 08:44 650 MG Acetaminophen/ Hydrocodone Bitart 1 tab Q4HPRN PRN PO 07/17/25 09:45 07/19/25 10:01 1 TAB Sennosides 8.6 mg HS PO 07/18/25 22:00 07/18/25 21:58 8.6 MG Pantoprazole Sodium 40 mg DAILY@0600 PO 07/20/25 06:00 Cephalexin 250 mg Q6HR PO 07/19/25 18:00 Examination General: A&O x1 HEENT: Normocephalic, atraumatic, moist mucous membranes Respiratory/pulmonary: Clear lungs bilaterally, no associated crackles or wheezes. Cardiovascular: Normal heart sounds S1 and S2 with no associated murmurs Abdomen: Distended abdomen, tenderness to palpation in suprapubic and left lower quadrant. Extremities: There is no peripheral edema present at the lower extremities. Peripheral Pulses: 3+ Radial (R). 3+ Radial (L). 3+ Dorsalis pedis (R). 3+ Dorsalis pedis(L) Skin: No rashes or pruritus, there is no sacral edema present at this time. Neurological: Intact cranial nerves with no focal neurologic deficits laboratory and microbiology Laboratory Tests 07/19/25 05:24 07/18/25 05:14 Test 07/18/25 05:14 Range/Units Serum Glucose 83 74-106 mg/dL Microbiology Date/Time Source Procedure Growth Status 07/15/25 12:35 Voided Urine Urine Culture - Final Complete 07/14/25 15:49 Blood Blood Culture - Preliminary NO GROWTH AFTER 72 HOURS OF INCUBATION. Resulted Problem List/Assessment/Plan Problem List/Assessment/Plan # Intractable abdominal pain possibly due to UTI # h/o Metastatic colon CA # Liver mets # Sepsis possibly d/t UTI ( previous h/o UTI ) # Severe constipation likely d/t rectal mass # acute complicated UTI # ?Urinary retention # lactic acidosis - pain management with acetaminophen but limit to 2 g per day, [place] for 5 q4 p.r.n. - IV fluids - urinalysis shows positive for UTI - Keflex 250 mg p.o. - Miralax and senna - may need enema later - patient may benefit from surgical consultation if not able to pass stool for a diverting colostomy - Bladder scan to be done and if post void volume >300ml, insert de la cruz # Chronic microcytic hypochromic anemia -started on IV iron infusion PUD prophylaxis: protonix DVT prophylaxis: Lovenox 40 mg daily SC Discussed with father- full code Plan discussed with Dr. Brothers Plan discussed with: Patient My Orders My Orders Orders - JONNIE ARTEAGA RESIDENT Procedure Category Date Status Time Stool Occult Blood LAB 07/18/25 Logged 17:58 Senna Pod Tablet PHA 07/18/25 In Process (Senokot Tablet) 22:00 Code Status CODE 07/19/25 Transmitted 10:03 * Residential Care Facility Manager CONS 07/19/25 Transmitted Consult Dietary Evaluation Review Comments: Nutrition Recommendation: 1) Ensure High protein 240ml BID if PO intake <50% 2) Monitor PO intake, lab values, weight trend, and I/O Expected Outcomes/Goals: GI symptoms to improve FU 3-5 days Date of Service: Jul 19, 2025 Billing Provider: JET BROTHERS MD Common Visit Codes: [id number] INP/OBS CARE(HIGH) JONNIE ARTEAGA RESIDENT Jul 19, 2025 14:55 JET BROTHERS MD Jul 19, 2025 17:38
[2025-07-19] MEDS: CEPHALEXIN 250 MG CAP PO SCH (18:37)
[2025-07-20 01:00] VITALS: BP 95/65; PULSE 93; RESP 17; TEMP 97.8; O2SAT 97
[2025-07-20 05:00] VITALS: BP 108/66; PULSE 87; RESP 18; TEMP 97.9; O2SAT 96
[2025-07-20] MEDS: PANTOPRAZOLE 40 MG TAB PO SCH (05:09)
[2025-07-20 08:00] VITALS: PULSE 90; RESP 20; O2SAT 96
[2025-07-20 09:30] VITALS: BP 104/74; PULSE 90; RESP 20; TEMP 97.8; O2SAT 96
--- NOTE | 2025-07-20 14:43 | DVHDSRES ---
Discharge Summary Date of Admission Resident Creating Document: JONNIE ARTEAGA Jul 14, 2025 at 18:25 Date of Discharge: Jul 20, 2025 Admitting Diagnosis Stage IV colon cancer Labs/Diagnostic Data: Laboratory Results Test 07/19/25 05:24 07/18/25 05:14 07/17/25 05:36 07/16/25 05:09 White Blood Count 10.9 10^3/uL (4.4-10.8) Red Blood Count 4.04 10^6/uL (4.5-5.90) Hemoglobin 9.1 g/dL (13.5-17.5) Hematocrit 29.0 % (41.0-53.0) Mean Corpuscular Volume 71.9 fL (80.0-100.0) Mean Corpuscular Hemoglobin 22.5 pg (28.0-32.0) Mean Corpuscular Hemoglobin Concent 31.4 g/dL (32.0-36.0) Red Cell Distribution Width 19.1 % (11.8-14.3) Platelet Count 497 10^3/uL (140-450) Mean Platelet Volume 6.6 fL (6.9-10.8) Neutrophils (%) (Auto) 80.7 % (37.0-80.0) Lymphocytes (%) (Auto) 9.5 % (10.0-50.0) Monocytes (%) (Auto) 9.2 % (0.0-12.0) Eosinophils (%) (Auto) 0.3 % (0.0-7.0) Basophils (%) (Auto) 0.3 % (0.0-2.0) Neutrophils # (Auto) 8.8 10 ^3/uL (1.6-8.6) Lymphocytes # (Auto) 1.0 10 ^3/uL (0.4-5.4) Monocytes # (Auto) 1.0 10 ^3/uL (0-1.3) Eosinophils # (Auto) 0 10 ^3/uL (0-0.8) Basophils # (Auto) 0 10 ^3/uL (0-0.2) Nucleated Red Blood Cells 0.3 % Sodium Level 138 mmol/L (136-145) Potassium Level 4.0 mmol/L (3.5-5.1) Chloride Level 103 mmol/L (98-107) Carbon Dioxide Level 26 mmol/L (20-31) Anion Gap 9 (5-15) Blood Urea Nitrogen 15 mg/dL (9-23) Creatinine 0.73 mg/dL (0.700-1.30) Glomerular Filtration Rate Calc 104 mL/min (>90) BUN/Creatinine Ratio 20.5 (10.0-20.0) Serum Glucose 83 mg/dL (74-106) Calcium Level 8.1 mg/dL (8.7-10.4) Total Bilirubin 0.4 mg/dL (0.2-1.0) Aspartate Amino Transferase (AST) 55 U/L (13-40) Alanine Aminotransferase (ALT) 27 U/L (7-40) Alkaline Phosphatase 367 U/L (46-116) Total Protein 5.5 g/dL (5.7-8.2) Albumin 2.6 g/dL (3.2-4.8) Direct Bilirubin 0.2 mg/dL (<0.3) Test 07/15/25 14:27 07/15/25 12:35 07/15/25 05:25 07/14/25 23:59 Lactic Acid Level 1.9 mmol/L (0.4-2.0) Urine Color Yellow (Yellow) Urine Clarity Clear (Clear) Urine pH 6.0 (5.0-9.0) Urine Specific [place] 1.050 (1.001-1.035) Urine Protein Trace (Negative) Urine Ketones Trace (Negative) Urine Blood Negative /uL (Negative) Urine Nitrite Negative (Negative) Urine Bilirubin Negative (Negative) Urine Urobilinogen 2 mg/dL (Negative) Urine Leukocyte Esterase 2+ /uL (Negative) Urine RBC 7 /hpf (0 - 3) Urine Microscopic WBC 48 /HPF (0-3) Urine Squamous Epithelial Cells None seen /hpf (<5) Urine Bacteria None seen /hpf (None Seen) Urine Mucus Few (None Seen) Urine Glucose Normal mg/dL (Normal) Urine Opiates Screen Neg (NEGATIVE) Urine Fentanyl Screen Neg (NEGATIVE) Urine Barbiturates Screen Neg (NEGATIVE) Urine Phencyclidine Screen Neg (NEGATIVE) Urine Amphetamines Screen Neg (NEGATIVE) Urine Benzodiazepines Screen Neg (NEGATIVE) Urine Cocaine Screen Neg (NEGATIVE) Urine Cannabinoids Screen Neg (NEGATIVE) Iron Level 15 ug/dL (65-175) Total Iron Binding Capacity 211 ug/dL (250-425) Percent Iron Saturation 7.1 % (20-55) Ferritin 42.4 ng/mL (22-322) Random Vancomycin Level < 3.0 ug/mL (5-10) Influenza Type A Antigen Negative (Negative) Influenza Type B Antigen Negative (Negative) SARS-CoV-2 Antigen (Rapid) Negative (NEGATIVE) Test 07/14/25 15:40 Prothrombin Time 11.2 sec (9.3-11.8) Prothrombin Time INR 1.06 (0.9-1.15) Activated Partial Thromboplast Time 29.3 SEC (24.5-34.5) Troponin I High Sensitivity 27 ng/L (</=54) Lipase 22 U/L (12-53) Other Laboratory Tests 07/19/25 05:24 07/18/25 05:14 Brief Hx & Hospital Course: Patient is a 60-year-old male with past medical history of colon cancer diagnosed 1 year ago, moderate protein calorie malnutrition, dyslipidemia, hypertension, BPH, cachexia, mild intellectual disabilities, handicapped, GERD, lung nodule, rectal mass, recurrent falls and major depression, was brought in by EMS due to abdominal pain. Patient is AO x1, however, localizes pain to left lower quadrant and supra pubic pain. Unable to obtain further history as patient altered. Per paperwork from nursing facility, patient was sent for generalized weakness, chronic abdominal pain and a cough. As per patient's father patient stopped getting chemotherapy. PMH: colon cancer, moderate protein calorie malnutrition, dyslipidemia, hypertension, BPH, cachexia, mild intellectual disabilities, GERD, lung nodule, rectal mass, recurrent falls and major depression PSH: unknown Family history: unknown Social history: transferred from [facility], denies smoking Brief hospital course: Patient came to the hospital with chief complaints of abdominal pain. Patient has history of metastatic colon cancer to the liver. Sepsis probably due to UTI, severe constipation likely due to rectal mass. Acute complicated UTI. Patient was given pain management with acetaminophen, [place] patient was given IV fluids, urinalysis showed positive for UTI. Patient was started on IV ceftriaxone, and changed to Keflex 250 mg p.o. q.6. Patient was given MiraLax and senna for constipation. Head CT showed negative for Mets. CT abdomen showed rectal malignancy with metastatic disease, most pronounced in the liver. Patient has chronic microcytic hypochromic anemia for which IV iron infusion was started. Contacted patient's father regarding hospice at [facility] and patient's father has agreed. social service was consulted for hospice at [facility]. PUD prophylaxis with Protonix was given, DVT prophylaxis with Lovenox 40 mg daily was given. Patient according to Father is full code. patient is stable to discharge and S patient is A&O x1 primary decision maker is the father. And father has agreed for hospice at [facility]. Patient will be going to [facility] with hospice. General: A&O x1 HEENT: Normocephalic, atraumatic, moist mucous membranes Respiratory/pulmonary: Clear lungs bilaterally, no associated crackles or wheezes. Cardiovascular: Normal heart sounds S1 and S2 with no associated murmurs Abdomen: Distended abdomen, tenderness to palpation in suprapubic and left lower quadrant. Extremities: There is no peripheral edema present at the lower extremities. Peripheral Pulses: 3+ Radial (R). 3+ Radial (L). 3+ Dorsalis pedis (R). 3+ Dorsalis pedis(L) Skin: No rashes or pruritus, there is no sacral edema present at this time. Neurological: Intact cranial nerves with no focal neurologic deficits Patient is to go to [facility] with hospice. Follow-up with discharge Clinic in 1 week. Operations or Procedures ORDERING PHYSICIAN: BILL ELLINGTON MD PROCEDURE(s): ABPLIV - CT AB PEL WITH IV CON ONLY REASON: abdominal pain ORDER NUMBER(s): [id number], ACCESSION NUMBER(s): [id number] Exam: CT CT AB PEL WITH IV CON ONLY History: abdominal pain Comparison Study: CT CHST AB PEL W WO CON-IV ONLY on DOS: 04/02/25 Exam Date: 07/14/2025 07:16 PM Radiation Dose Information: CT Dose: CTDI volume is 6.53 mGy. Dose-length product is 391.0 mGy*cm TECHNIQUE: During the uneventful, intravenous administration of contrast material, multislice data acquisition was obtained through the abdomen and pelvis. The data set was subsequently reconstructed into axial images. Images were reviewed on a work station using a combination of axial and multiplanar using a variety of window levels and settings. Findings: Motion degraded study. Lower chest: Clear. Liver: Numerous enlarged hepatic masses, new/ significantly increased in size from prior study. For example, there is 5.6 cm artifact with mass, new from prior. 6.1 cm posterior right hepatic lobe mass measured approximately 2.7 cm previously. Biliary system: Unremarkable Spleen: Unremarkable Pancreas: Unremarkable. Adrenals: Unremarkable. Kidneys and ureters: Normal renal enhancement. No hydronephrosis. Nonobstructing left renal calculi. Bowel: Overall increasing size irregular rectal mass, which appears more bulky but difficult to measure due to irregular shape. Diffuse stool burden of the upstream colon. No definite obstruction. Bladder: Unremarkable Reproductive organs: No abnormal mass. Lymph nodes: Multiple enlarged perirectal lymph nodes, largest measuring 2.8 cm, previously 2.3 cm. Peritoneum: Unremarkable Vessels: Diminutive appearance of the intrahepatic portal veins branches likely related to mass effect from the aforementioned masses. No definite occlusion. Bones and soft tissue: No aggressive osseous lesion IMPRESSION: Overall findings suspicious for progression of rectal malignancy with metastatic disease, most pronounced in the liver. Limited motion degraded study. ATED BY: OMAR GARG MD DICTATED DATE/TIME: 07/14/252007 SIGNED BY: OMAR GARG MD SIGNED DATE/TIME: 07/14/252007 ORDERING PHYSICIAN: BILL ELLINGTON MD PROCEDURE(s): CXRP - CHEST PORTABLE REASON: abdominal pain ORDER NUMBER(s): [id number], ACCESSION NUMBER(s): [id number] EXAM: XY CHEST PORTABLE HISTORY: abdominal pain TECHNIQUE: 1 view of the chest COMPARISON: XY CHEST PORTABLE on DOS: 04/02/25 FINDINGS/IMPRESSION: LUNGS: No pleural effusion, consolidation, or pneumothorax. unchanged presumed calcific granuloma of the periphery of the left upper lobe. MEDIASTINUM: Unremarkable. BONES: No acute osseous abnormality. OTHER: None. ATED BY: BRAYDON LOUISE MD DICTATED DATE/TIME: 07/14/251941 SIGNED BY: BRAYDON LOUISE MD SIGNED DATE/TIME: 07/14/251941 ORDERING PHYSICIAN: JONNIE ARTEAGA PROCEDURE(s): HWOCT - HEAD WITHOUT CONTRAST REASON: r/o mets to brain ORDER NUMBER(s): [id number], ACCESSION NUMBER(s): [id number] CT HEAD WITHOUT CONTRAST Indication: r/o mets to brain EXAM DATE: 07/15/2025 12:45 PM COMPARISON: None TECHNIQUE: CT of the head without intravenous contrast. RADIATION DOSE: CTDIvol: 50.33 mGy, DLP: 1795.31 mGy*cm FINDINGS: Examination degraded by motion. There is no intracranial hemorrhage. There is no extra-axial fluid, mass, mass effect or midline shift. The ventricles are midline and normal in size. Basilar cisterns are patent. Mild periventricular and subcortical white matter chronic microvascular ischemic changes. The paranasal sinuses and mastoids are well-pneumatized. Imaged portion of the orbits are unremarkable. IMPRESSION: No CT evidence intracranial hemorrhage or mass effect. Recommend MRI brain with and without contrast to better characterize. ATED BY: HANSEL FIELD MD DICTATED DATE/TIME: 07/15/25 1326 SIGNED BY: HANSEL FIELD MD SIGNED DATE/TIME: 07/15/25 1326 Condition at Discharge: Stable Final Diagnosis/Problems List # Intractable abdominal pain possibly due to colon cancer # stage IV Metastatic colon CA # Liver mets # Sepsis d/t UTI # Severe constipation likely d/t rectal mass # Chronic microcytic hypochromic anemia # acute complicated UTI # lactic acidosis Discharge Disposition: [facility] Discharge Instruct/Medications Diet: Regular Activity: No Restrictions, As Tolerated Follow Up/Referral: Follow-up with discharge Clinic , PCP Medications: As per EMR Scheduled Aspirin (Aspirin Adult Low Dose), 1 TAB PO DAILY, (Reported) Atorvastatin Calcium (Atorvastatin Calcium), 1 TAB PO DAILY, (Reported) Cholecalciferol (Vitamin D3), 1 CAP PO DAILY, (Reported) Ferrous Sulfate (Ferosul), 1 TAB PO DAILY, (Reported) Loratadine (Claritin Tablet), 1 TAB PO DAILY, (Reported) Melatonin (Melatonin), 5 MG PO HS, (Reported) Multiple Vitamin (One-Daily Multi-Vitamin), 1 TAB PO DAILY, (Reported) Sertraline HCl (Sertraline HCl), 1 TAB PO DAILY, (Reported) Tamsulosin Hcl (Tamsulosin Hcl), 2 CAP PO DAILY, (Reported) Scheduled PRN Ondansetron HCl (Ondansetron Hydrochloride), 1 TAB PO Q8HPRN PRN for nausea/vomiting, (Reported) Discharge Statement: "Patient was advised to return to the ER or call 911 if any headaches, dizziness, shortness of breath, chest pain, abdominal pain, bleeding, fevers, or worsening of medical condition. Patient was counseled about treatment plan, medications, possible side effects, patientverbalized understanding. All questions were answered to the best of my ability. This discharge took greater then 30 minutes in planning, reviewing documentation, counseling the patient, and discussing with other team members." ASSESSMENT ASSESSMENT Assessment Stage IV colon cancer Date of Service: Jul 20, 2025 Billing Provider: JET BROTHERS MD Common Visit Codes: 39234-RDI/OBS DISCH DAY >30min JONNIE ARTEAGA RESIDENT Jul 20, 2025 14:43 JET BROTHERS MD Jul 20, 2025 23:20
[2025-07-20 16:30] VITALS: BP 112/68; PULSE 100; RESP 19; TEMP 98.9; O2SAT 94
== END 2025-07-20 18:17 | disposition hospice, inpatient (51) | DRG 871 ==
LOC: EDBD 14:42 → ER 14:42 → OVERFLOW 18:25 → CENTRAL 07-15 04:30
PROVIDERS: ADMIT Internal Medicine; ATTEND Internal Medicine
DX: A41.9 Sepsis, unspecified organism (principal); G93.41 Metabolic encephalopathy; C78.7 Secondary malignant neoplasm of liver and intrahepatic bile duct; E87.20 Acidosis, unspecified; C18.9 Malignant neoplasm of colon, unspecified; D50.9 Iron deficiency anemia, unspecified; N39.0 Urinary tract infection, site not specified; F32.9 Major depressive disorder, single episode, unspecified; I10 Essential (primary) hypertension; E78.5 Hyperlipidemia, unspecified; Z20.822 Contact with and (suspected) exposure to COVID-19; K21.9 Gastro-esophageal reflux disease without esophagitis; R33.9 Retention of urine, unspecified; N40.0 Benign prostatic hyperplasia without lower urinary tract symptoms; K59.00 Constipation, unspecified; K62.9 Disease of anus and rectum, unspecified
CPT/HCPCS: 36415; 70450; 71045; 74177; 80048; 80053; 80076; 80202; 80307; 81001; 82728; 83540; 83550; 83605; 83690; 84484; 85025; 85610; 85730; 87040; 87086; 87426; 87804; 97110; 97116; 97163; 97530; G0378; J1756; J2405; J2470